=== PATIENT | male | born 1950 | race Caucasian/White ===

== ENCOUNTER 2023-07-07 13:19 | Inpatient (IN) | payer OTHER, MEDICARE, SELFPAY ==
[2023-07-07 06:43] VITALS: BP 152/58
--- NOTE | 2023-07-07 07:52 | ED.GENMED ---
History of Present Illness
General
Chief Complaint: Fall
Source: spouse
Exam Limitations: none
Time Seen by Provider: 07/07/23 07:22
Nursing documentation reviewed up to this point in time: agreed with
Travel History
Have you had any contact with someone who has COVID-19?: No
Do you have any symptoms of coronavirus? Fever > 100 degrees, chills, cough, shortness of breath, sore throat, loss of taste or smell, muscle aches, or headache?: No
History of Present Illness
History of Present Illness:
Patient is a 72-year-old male presents to the ER for evaluation after head injury. Spouse is at bedside who is primary caregiver. Patient has a history of dementia. She reports when she got up this morning she found blood in the hallway and found
patient sitting in his recliner with a laceration to his head. She believes he may have been walking in the middle the night and fell in the kitchen step. He normally sleeps downstairs in the recliner. She cares for patient at home. He is able
to walk but does not want to use a walker. She complains of worsening incontinence both bowel and bladder. Patient is not on blood thinners
Past History
Past History
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
ED Past Surgical History: Other (Craniotomy for evacuation of subdural hematoma 2010)
Social History
Tobacco: Non-smoker
Alcohol: Former
Drug: None
Personal:
Living: with family
Employment: Retired
Family History
Family History: Hypertension
Review of Systems
Review of Systems
Allergies reviewed?: Yes
Unable to obtain full review of systems at this time due to: dementia
Other source history: family
All Other Systems: ROS reviewed and negative except as documented in HPI and ROS
Constitutional: Reports no symptoms; Denies fever
Respiratory: Reports no symptoms
Cardiac: Reports no symptoms
ABD/GI: Reports no symptoms
: Reports no symptoms
Skin: Reports other (laceration to right scalp )
Neurological: Reports other (no behavior change as per spouse )
Hematologic/Lymphatic: Reports no symptoms
Psychiatric: Reports no symptoms
Phy Exam
General Physical Exam
General Presentation: no apparent distress
General Skin: warm and dry
General Habitus: elderly
General Mental: confused
General Hydration: dry mucous membranes
Cardiovascular Exam
Cardiovascular Exam: regular rate/rhythm, no murmur and normal peripheral pulses
Pulmonary Exam
Pulmonary Exam: lungs clear
Neurological Exam
Neurological Exam: alert and other (Able to state name attempts to follows commands garbled speech which is not new)
Musculoskeletal Exam
Musculoskeletal Exam: full ROM
Skin Exam
Skin Exam: normal color, warm/dry and other (Approximately 7 cm linear laceration to right lateral scalp small hematoma)
Psychiatric Exam
Psychiatric Exam: normal mood/affect
Course
Orders/Labs/Results
Orders:
Orders
07/07/23 07:24
Case Management Consult ONCE
Case Management Consult: Other
Comment: resources for advancing dementia
07/07/23 07:51
CT Head W/o Iv Contrast Urgent
Comment:
Reason For Exam: trauma
07/07/23 07:52
CT Cervical Spine W/o Iv Contr Urgent
Comment:
Reason For Exam: trauma
IV Insert/Care/Rem.- Treatment PRN
Straight cath- Treatment ONCE
07/07/23 08:36
Lidocaine 2% [Lidocaine Uro-Jet 2%] 1 syringe .ROUTE .STK-MED ONE
07/07/23 08:38
Complete Blood Count/With Diff Urgent
Comprehensive Metabolic Panel Urgent
Urinalysis Reflex To Culture Urgent
Date Specimen was Collected: 07/07/23
Time Specimen was Collected: 08:34
07/07/23 08:55
Tetanus/Diphth/Acelpertussis [Adacel] 0.5 ml IM .ONCE ONE
07/07/23 08:57
Electrocardiogram (*1) Stat
Reason for Study: Other
Other Reason for Exam: chest pain
Cardiac Monitoring- Treatment ONCE
EKG- Treatment ONCE
07/07/23 11:00
Asenapine Sublingual [Saphris] 5 mg SL NOW STA
07/07/23 11:03
Midazolam HCl [Versed] 5 mg IM NOW STA
Olanzapine [Zyprexa] 5 mg IM NOW STA
07/07/23 11:05
Asenapine Sublingual [Saphris] 5 mg .ROUTE .STK-MED ONE
Abnormal Lab Results
07/07/23
08:38
WBC 14.5 H 10^3/uL
(4.8-10.8)
RBC 4.01 L 10^6/uL
(4.70-6.10)
Hgb 11.9 L g/dL
(13.0-18.0)
Hct 36.4 L %
(39.0-52.0)
MCHC 32.7 L g/dL
(33.0-37.0)
MPV 11.5 H fL
(7.4-10.4)
Abs Immat Gran (auto) 0.1 H 10^3/uL
(0-0.05)
Absolute Neuts (auto) 11.4 H 10^3/uL
(1.4-6.5)
Absolute Monos (auto) 1.3 H 10^3/uL
(0.1-0.6)
Immature Gran % 0.6 H %
(0-0.5)
Neutrophils % 78.4 H %
(42.2-75.2)
Lymphocytes % 11.7 L %
(20.5-51.1)
BUN 24 H mg/dl
(9-20)
Glucose 109 H mg/dl
(70-99)
07/07/23 08:38
07/07/23 08:38
Vital Signs
Initial and Last Documented VS:
Initial Vital Signs
Temp Pulse Resp BP Pulse Ox
98.4 F 58 16 152/58 98
07/07/23 06:43 07/07/23 06:43 07/07/23 06:43 07/07/23 06:43 07/07/23 06:43
Last Documented Vital Signs
Temp Pulse Resp BP Pulse Ox
98.4 F 58 16 152/58 98
07/07/23 06:43 07/07/23 06:43 07/07/23 06:43 07/07/23 06:43 07/07/23 06:43
Procedures
Laceration Closure
Right Lateral Scalp:
Status of Wound: clean
Size of Wound in cm: 7
Description of Wound Edges: sharp
Preparation: cleaned with saline
Anesthesia: 1% Lidocaine with epi
Revision/Debridement: routine- no revision
Type of Closure: single layer closure
Skin Closure Material: skin didi
Additional information:
7 didi
MDM/Problems Addressed
Differential Diagnosis Includes:
Not limited to fall, head injury, intracranial hemorrhage
MDM/Problems Addressed:
Patient is a 72-year-old male with history of traumatic brain injury dementia cared for at home by . Patient was brought for evaluation of head injury. no thinners . Patient apparently had an unwitnessed fall last night found patient
sitting in recliner today with bleeding right scalp wound. Patient is a laceration to the right scalp wound. She reports patient is at baseline he has a history of dementia and getting worse. She does not have any help at home and he is getting
more more difficult to care for. He does ambulate on his own but does not want to use a walker. He is not on blood thinners. He presents alert but does not respond to questions garbled speech moans and yells. Patient has become at this time very
agitated requiring medications for agitation. does not feel that she is able to care for patient at home and does request placement. Patient does not have a fever his white count is mildly elevated likely from trauma urinalysis negative. BUN
mildly elevated. Will give fluids. Case discussed admitting hospitalist. table games manager also consulted.
Chronic conditions affecting care:
TBI now w/ dementia
*Critical Care Note
Total Time (30-74mins, 75-104mins- exclusive of procedures): Not Applicable
ED Attending Note
-
Portions of this chart may have been created with voice recognition software.� Occasional wrong word or��sound alike� substitutions may have occurred due to the inherent limitations of voice recognition software.
Discharge Plan
Departure
Patient Disposition: Admit
Date of Disposition: 07/07/23
Time of Disposition: 11:19
Admit to: Med/Surg
Admit to doctor: hospitalist
Presentation/result/management discussed w/ accepting MD/DO: Hospitalist
Patient with high blood pressure during this ER visit?: Yes
Condition: Fair
Covid-19: Not Applicable
Discharge Problem:
Head injury, Fall, Agitation, scalp laceration
Prescriptions:
No Action
multivitamin [Daily Multiple] 1 EACH tablet
1 ea PO DAILY
amlodipine 10 MG tablet
10 mg PO DAILY
levetiracetam [Keppra] 750 MG tablet
750 mg PO DAILY
metoprolol tartrate 25 MG tablet
12.5 mg PO BID
clopidogrel 75 MG tablet
75 mg PO DAILY
pantoprazole 40 MG tablet,delayed release (DR/EC)
40 mg PO DAILY
folic acid 1 MG tablet
1 mg PO DAILY
metformin 500 MG tablet extended release 24 hr
500 mg PO DAILY
amlodipine-atorvastatin 1 EACH tablet
1 ea PO DAILY
thiamine mononitrate (vit B1) 100 MG tablet
100 mg PO DAILY
prednisone 20 MG tablet
40 mg PO DAILY Qty: 8 0RF
Referrals:
Sotero Cartagena MD [Family Provider] -
Interventions
Interventions:
*Risk Screen - Suicide Last Done: 07/07/23 06:43
*General Assessment Last Done: 07/07/23 06:43
*Neglect/Abuse Screening Last Done: 07/07/23 06:43
ED- Fall Risk Assessment Last Done: 07/07/23 06:43
*ED COVID-19 Vaccine History Last Done: 07/07/23 06:43
ED-Musculoskeletal Assessment Last Done: 07/07/23 07:18
ED- Neurological Assessment Last Done: 07/07/23 07:18
ED-Skin Assessment Last Done: 07/07/23 07:18
Discharge Date and Time
Print Language: PERSIAN
[2023-07-07 08:59] LABS: % Basophils 0.2 % (0-2); % Eosinophils 0.1 % (0-6); % Immature Granulocytes 0.6 % (0-0.5); % Lymphocytes 11.7 % (20.5-51.1); % Neutrophils 78.4 % (42.2-75.2); Absolute Immature Granulocytes 0.1 10^3/uL (0-0.05); Absolute Lymphocytes 1.7 10^3/uL (1.2-3.4); Absolute Monocytes 1.3 10^3/uL (0.1-0.6); Absolute Neutrophils 11.4 10^3/uL (1.4-6.5); Hematocrit 36.4 % (39.0-52.0); Hemoglobin 11.9 g/dL (13.0-18.0); Mean Corp Hgb Conc. 32.7 g/dL (33.0-37.0); Mean Corpuscular Hgb 29.7 pg (27.0-31.0); Mean Corpuscular Volume 90.8 fL (80.0-94.0); Mean Platelet Volume 11.5 fL (7.4-10.4); Nucleated Red Blood Cells % 0 % (-); Platelet Count 204 10^3/uL (130-400); Red Blood Cell Count 4.01 10^6/uL (4.70-6.10); Red Cell Dist. Width 13.4 % (11.5-14.5); White Blood Cell Count 14.5 10^3/uL (4.8-10.8)
[2023-07-07 09:11] LABS: ALT (SGPT) 19 U/L (0-50); AST (SGOT) 27 U/L (17-59); Alkaline Phosphatase 109 U/L (38-126); Blood Urea Nitrogen 24 mg/dl (9-20); Calcium 9.4 mg/dl (8.4-10.2); Carbon Dioxide 27 mmol/L (22-30); Chloride 103 mmol/L (98-107); Glucose 109 mg/dl (70-99); Potassium 4.3 mmol/L (3.5-5.1); Sodium 137 mmol/L (135-145); Total Bilirubin 0.6 mg/dl (0.2-1.3); Total Protein 6.4 g/dl (6.3-8.2); eGFR > 60.00
[2023-07-07 09:22] LABS: Urine Albumin Trace (Neg - Trace); Urine Bilirubin Negative (Negative); Urine Character Clear (Clear); Urine Color Yellow; Urine Glucose Negative (Negative); Urine Ketone Negative (Negative); Urine Leukocyte Negative (Negative); Urine Nitrite Negative (Negative); Urine Occult Blood Negative (Negative); Urine Urobilinogen Negative (Neg - 1+)
--- NOTE | 2023-07-07 09:26 | CM ---
CM met with patient and at bedside in ED. Per , she feels overwhelmed with the patient's needs and states that she 'did not realize how bad he had gotten.' CM provided resources including [facility] information for an assessment for
in home services. confirms she will call. states she is also interested in VN services for SN/PT/OT if patient is discharged home. CM will continue to follow.
[2023-07-07] MEDS: ZYPREXA 5 MG IM (11:22)
[2023-07-07] MEDS: SAPHRIS 5 MG SL (11:24)
[2023-07-07] MEDS: ADACEL 0.5 ML IM (12:13)
[2023-07-07] MEDS: NSS 500 IV (12:14)
[2023-07-07] MEDS: VERSED 2 MG IM (12:19)
[2023-07-07] MEDS: VERSED 3 MG IM (12:19)
--- NOTE | 2023-07-07 12:20 | HPS.HSE ---
Family Physician
-
Family Physician: Sotero Cartagena
Chief Complaint
-
Fall, increased agitation
History of Present Illness
72-year-old male from home where he lives with his Frances who Reports she found blood in the hallway and found her sitting in a recliner with a laceration to his head. She believes that he got up in the middle of the night and was
attempting to go towards the kitchen. She reports over the past 2 years he has had progressive decline in his memory and has a shuffling gait but does not want to use a walker. She also reports he has chronic incontinence of bowel and bladder.
She is his only primary switchboard operator and is having difficulty managing taking care of him due to his worsening dementia. She denies recent fever, chills, chest pain, palpitations, shortness of breath, cough, abdominal pain, nausea, vomiting, diarrhea.
He has past medical history of fall with brain hemorrhage 2010 treated [facility] with craniotomy, second brain hemorrhage 2010 treated at [facility], dementia, GERD, seizures, TIA 2012, 2013, former alcoholic stopped 2010, chronic ambulatory
dysfunction, depression
Medical History
Past Medical History
Past Medical History: Reports Other
Additional Past Medical History:
fall with brain hemorrhage 2010 treated at [facility] with craniotomy
second brain hemorrhage 2010 treated at [facility]
dementia
GERD
seizures
TIA 2012, 2013
former alcoholic stopped 2010
chronic ambulatory dysfunction
depression
Past Surgical History: Reports Other
Additional Past Surgical History:
Craniotomy secondary to brain hemorrhage 2010 [facility]
Social History
Tobacco: Non-smoker
Alcohol: Former (Alcoholic former quit 2010)
Personal:
Living: With Family ( Frances)
Employment: Retired
Family History
Family History: Other (Patient mother of fall with brain hemorrhage age 54, father age 55 history of alcohol abuse, smoker)
Allergies / Home Medications
Allergies reflects when Allergies were last updated in [facility].
Home Medications with original date entered in [facility]
Allergy/Medication List:
Allergies
Allergy/AdvReac Type Severity Reaction Status Date / Time
No Known Allergies Allergy Unverified 07/07/23 06:42
Home Medications
amlodipine 10 mg tablet 10 mg PO DAILY 12/30/11
levetiracetam 750 mg tablet (Keppra) 750 mg PO DAILY 12/30/11
metoprolol tartrate 25 mg tablet 12.5 mg PO BID 12/30/11
clopidogrel 75 mg tablet 75 mg PO DAILY 07/03/14
metformin 500 mg tablet,extended release 24 hr 500 mg PO DAILY 07/03/14
pantoprazole 40 mg tablet,delayed release 40 mg PO HS 07/03/14
atorvastatin 20 mg tablet 20 mg PO HS 07/07/23
donepezil 10 mg tablet 10 mg PO HS 07/07/23
xlfzdhjeytpq-nolxmcki-fwwogw tablet 1 tab PO DAILY 07/07/23
sertraline 100 mg tablet 100 mg PO HS 07/07/23
thiamine HCl (vitamin B1) 100 mg tablet 100 mg PO DAILY 07/07/23
Review of Systems
-
History Source: Family ( Frances at bedside)
A 12 point ROS was completed and negative except as noted: Yes
Constitutional: Reports Other (Agitation); Denies Fever
EENT: Reports Other (Laceration right scalp)
Respiratory: Denies Cough or Trouble Breathing
Cardiac: Denies Chest Pain or Palpitations
Abdomen/GI: Denies Abdominal Pain, Nausea, Vomiting or Diarrhea
: Reports Incontinence (Chronic urinary and bowel)
Musculoskeletal: Denies Joint Pain or Edema
Skin: Denies Itching or Rash
Neurological: Denies Dizzy or Headache
Endocrine: Reports No Symptoms
Hematologic/Lymphatic: Reports No Symptoms
Psych: Reports Other (Agitation)
Physical Exam
Vital Signs
Vital Signs
Temp Pulse Resp BP Pulse Ox
98.4 F 58 16 152/58 98
07/07/23 06:43 07/07/23 06:43 07/07/23 06:43 07/07/23 06:43 07/07/23 06:43
Physical Exam
General: Other (Patient currently sleeping secondary to IV Versed/Zyprexa for acute agitation); No Fever or Chills
HEENT: PERRLA (With manual opening), [place] Conjunctivae and Other (Dry oral mucosa)
Respiratory: Clear; No Wheezes, Rales or Rhonchi
Cardiac: S1/S2 and Regular Rhythm; No Murmur, Rub, Gallop or Peripheral Edema
Breast: Deferred by me
GI: Soft, Non Tender, Non Distended, Normal Bowel Sounds and No Hepatosplenomegaly
Rectal: Deferred by Provider
Genito-urinary: Deferred by me
Musculoskeletal: No Clubbing, No Cyanosis and No Edema
Skin: Warm, Dry and Other (Scalp laceration repair with didi right side of head)
Neuro: Other (Patient currently sleeping secondary to IV Versed/Zyprexa for acute agitation)
Psych: Other (Patient currently sleeping secondary to IV Versed/Zyprexa for acute agitation)
Laboratory Results
-
07/07/23 08:38
07/07/23 08:38
Laboratory Results
Total Bilirubin 0.6 mg/dl (0.2-1.3) 07/07/23 08:38
AST 27 U/L (17-59) 07/07/23 08:38
ALT 19 U/L (0-50) 07/07/23 08:38
Alkaline Phosphatase 109 U/L (38-126) 07/07/23 08:38
Impression/Plan
-
Impression/plan:
Admit to MedSurg
#Acute agitation Hx dementia
#Hx with history TBI/brain injury brain hemorrhage 02-24-2011 [facility]
-Consult psychiatry
-Patient currently on Zoloft 100 mg at bedtime
-Continue donepezil
-Patient given IV Versed, Zyprexa in ER is currently calm
-Will continue IM Zyprexa 5 mg every 6 hours as needed agitation(current QTc 435 MS)
- monitor daily EKG QTc interval
-IV NSS 80 cc an hour
-When awake consult speech and swallow
-Consult PT/OT/case management for possible SNF placement
-N.p.o. while sedated consult speech therapy
#Seizure disorder status post brain injury 02/24/2011 treated at [facility], second brain hemorrhage treated at [facility] 2010
-Will make Keppra IV 750 mg daily
#Fall with laceration scalp right-sided
-Requiring didi in ER
-will need removal approximately [address] cervical spine: No acute abnormalities multilevel cervical DDD
CT head: Encephalomalacia subjacent to 6 cm right temporal parietal craniotomy, moderate diffuse cortical atrophy, small right parietal scalp hematoma
EKG: Sinus bradycardia with PACs 59 bpm, QTc 435 MS
#Acute leukocytosis likely secondary to fall
WBC 14.5 no shift, patient nontoxic, afebrile
-UA negative
Will follow CBC monitor for temperature
#TIAs 2012, 2013
-Continue Plavix 75 mg daily, statin, beta-beka
#DM2
Accu-Cheks with SSI, check HgbA1c
Continue metformin 5 mg daily
#HTN�benign
152/58
-Continue amlodipine 10 mg daily, metoprolol tartrate 12.5 mg twice daily
-If sedated and unable side will have IV as needed hydralazine SBP greater than 160
#HLD
Continue statin
# GERD
-Continue Protonix 40 mg at bedtime
#Hearing impaired bilaterally
DVT prophylaxis
SCDs
DNR per Frances at bedside
--- NOTE | 2023-07-07 13:33 | W.PN.UPDATE ---
Update Note
Progress Note Update
I saw and examined the patient.
The DIMETHYLANILINE SULFATOR OPERATOR note was reviewed and I agree with the note.
This note is an addendum to Isabell Bermeo note from earlier today. Billing purposes.
Comment:
72-year-old male past medical history of brain hemorrhage status postcraniotomy, dementia who is presenting from home with fall and laceration to the head. But spouse at bedside patient had declined significantly in the last few years. At home
patient is able to tolerate diet without any difficulty. Patient does have incontinence of the bowel and bladder. In the ER patient with severe agitation and required physical restraints. Subsequently afterward he also required chemical
restraints and was able to be weaned off physical restraints. Currently patient is resting in bed. Spouse states unable to take care of her at home.
General no acute distress, sleeping
Cardiac S1-S2 mild bradycardia heart rate 54 with
Lungs clear to auscultation.
Abdomen positive bowel sounds soft nontender nondistended
Extremities no edema
Psych sleeping currently
Acute agitation with behavioral disturbances
History of dementia
History of TBI status postcraniotomy with bleeding
Seizure disorder
Mechanical fall
Leukocytosis likely reactive
History of TIAs
Primary hypertension
Plan
Switch to IV Keppra
Zyprexa as needed
Psych evaluation
Case management for placement
Monitor blood pressure
Speech eval once awake
CODE STATUS DNR
Discussed with spouse at bedside in detail
[2023-07-07 15:20] VITALS: BP 131/64
[2023-07-07] MEDS: NSS 1000 IV (16:06)
--- NOTE | 2023-07-07 17:00 | PTCARENOTE ---
Addendum entered by Lory Lindo RN 07/07/23 18:24:
Dr Felix was contacted to clarify NPO order as it states ok for meds but no clear liquids. Since pt is inconsistently staying awake the pm meds can be held until speech evaluates him tomorrow. will pass on to the next shift.
Original Note:
Rec'd pt from ER. transferred from stretcher to bed. pt is lethargic but arousable to voice. Oriented only to person. He is slow to respond to questions. states this is normal. NSS started at 80ml/hr per orders. Bed alarm placed under patient.
emotional about how difficult it is to care for him senior group manager saw her in the ER. Emotional support provided. call tapia in reach.
[2023-07-07 18:08] LABS: Glucose - Point of Care 117 mg/dl (70-99)
[2023-07-07] MEDS: NOVOLOG FLEXPEN-LOW RESISTANCE SC (18:13)
--- NOTE | 2023-07-07 19:57 | W.PN.UPDATE ---
Update Note
Progress Note Update
ORGANIC PREPARATION TECHNICIAN was asked by RN to hold the medications till evaluated by speech for swallow eval. Per day shift RN, Attending is aware.
[2023-07-07] MEDS: KEPPRA 750 MG IV (22:49)
[2023-07-07 23:20] VITALS: BP 141/46
[2023-07-08 00:08] LABS: Glucose - Point of Care 117 mg/dl (70-99)
[2023-07-08] MEDS: NOVOLOG FLEXPEN-LOW RESISTANCE SC ×5 (00:39→23:28)
[2023-07-08] MEDS: STERILE WATER FOR INJECTION 2.10000000000000009 ML IM (02:15)
[2023-07-08] MEDS: ZYPREXA 5 MG IM ×2 (02:21→08:15)
--- NOTE | 2023-07-08 02:34 | PTCARENOTE ---
Addendum entered by Abiel Keith RN 07/08/23 05:17:
Pt with another episode of agitation. Pt pulled second IV out. Multiple attempts with different tactics to calm and reorient pt. RAILWAY EQUIPMENT OPERATOR Amrit Richter notified. Pt ordered left and right wrist restraints with 4 side rails at 0434. Pt placed in
restraints with no issue, pt tolerating restraints. IV replaced, fluids reconnected. Pt still on bed alarm. No signs of acute distress, respirations regular. Call tapia within reach.
Addendum entered by Abiel Keith RN 07/08/23 03:50:
Pt currently relaxed, pleasant and cooperative. No signs of acute distress, respirations regular. Bed alarm still on, call tapia within reach.
Original Note:
Pt became agitated overnight. Pt was taking all linens off bed, attempting to remove gown, get out of bed and successfully pulled out IV. Pt yelling, unable to be calmed. IV team called, new IV placed by IV team in left forearm. Pt given PRN Zyprexa
5 mg IM per order for agitation.
[2023-07-08] MEDS: NSS 1000 IV ×2 (05:15→17:23)
[2023-07-08 06:18] LABS: Glucose - Point of Care 118 mg/dl (70-99)
[2023-07-08 07:20] VITALS: BP 141/92
[2023-07-08 07:55] VITALS: BP 141/92
--- NOTE | 2023-07-08 08:04 | PTCARENOTE ---
Addendum entered by Lory Lindo RN 07/08/23 16:44:
Dr Felix made aware that pt has rectal temp of 101. Ordered infection workup (cxr, urine and blood cultures). will also give tylenol suppository
Addendum entered by Lory Lindo RN 07/08/23 09:34:
speech therapist attempted evaluation but pt would not cooperate. Dr Felix made aware. He will look at his medications and make adjustments
Original Note:
Rec'd pt agitated, pulling off brief. multiple attempts to place it back on. Dr Felix aware and added bilateral hand mitts to is restraint order. Multiple attempts made to reorient him without success. Pt's called in for updated. Updated her
on events overnight. She will be in later this morning.
[2023-07-08 09:01] LABS: % Basophils 0.3 % (0-2); % Eosinophils 0.2 % (0-6); % Immature Granulocytes 0.4 % (0-0.5); % Lymphocytes 17.2 % (20.5-51.1); % Monocytes 9.9 % (1.7-9.3); Absolute Immature Granulocytes 0.1 10^3/uL (0-0.05); Absolute Lymphocytes 2.1 10^3/uL (1.2-3.4); Absolute Monocytes 1.2 10^3/uL (0.1-0.6); Absolute Neutrophils 8.7 10^3/uL (1.4-6.5); Hemoglobin 13.8 g/dL (13.0-18.0); Mean Corp Hgb Conc. 33.7 g/dL (33.0-37.0); Mean Corpuscular Hgb 29.7 pg (27.0-31.0); Mean Corpuscular Volume 88.4 fL (80.0-94.0); Mean Platelet Volume 11.4 fL (7.4-10.4); Nucleated Red Blood Cells % 0 % (-); Platelet Count 234 10^3/uL (130-400); Red Blood Cell Count 4.64 10^6/uL (4.70-6.10); Red Cell Dist. Width 13.5 % (11.5-14.5); White Blood Cell Count 12.1 10^3/uL (4.8-10.8)
[2023-07-08 09:27] LABS: Blood Urea Nitrogen 14 mg/dl (9-20); Calcium 9.7 mg/dl (8.4-10.2); Carbon Dioxide 27 mmol/L (22-30); Chloride 105 mmol/L (98-107); Glucose 98 mg/dl (70-99); HDL Cholesterol 62 mg/dl; LDL Cholesterol, Calculated 50 mg/dl; Sodium 144 mmol/L (135-145); Total Cholesterol 127 mg/dl (50-199); Triglyceride 79 mg/dl (10-149); Very Low Density Lipoprotein 15 mg/dl (0-30); eGFR > 60.00
[2023-07-08] MEDS: KEPPRA 750 MG IV ×2 (09:37→20:07)
[2023-07-08] MEDS: PROTONIX IV 40 MG IV (09:37)
[2023-07-08] MEDS: NORVASC PO (09:37)
[2023-07-08] MEDS: NSS (PRESERVATIVE FREE) 10 ML IV (09:37)
[2023-07-08] MEDS: PLAVIX PO (09:38)
--- NOTE | 2023-07-08 09:48 | CS.PSYCHR ---
Consult Summary - Psychiatry
-
Psychiatry consult for management of agitation in context of dementia. 72 yo male with history of dementia admitted 07/07/2023 s/p fall at home. In the ER he was severely agitated and required Saphris 5mg SL, Zyprexa 5mg IM and Versed 5mg IM for
safety and stabilization. Spoke with nursing who state patient was quite agitated again overnight and this morning. He received zyprexa 5mg IM overnight and then again this morning. Per nursing patient has tolerated this dose well and it has helped
calm him down and maintain his safety. He has not been oversedated/somnolent as a result of it. Qtc today is 431. Per , patient's dementia has been worsening over the past two years and significantly worse over the past two months. She reports
memory decline, shuffled gait and urinary/fecal incontinence. She states she is unable to care for him.
PO medications are being held until speech/swallow eval is completed. Attempt was made today but patient was aggressive, kicking and yelling profanity.
CT head- encephalomalacia subjacent to 6cm R temporal parietal craniotomy; moderate cortical atrophy, small right parietal hematoma
At this time, he is lying in bed, awake and restless. He answers 'I don't know' when asked his first and last name, where he is, and what year it is.
Past psych- prescribed zoloft 100mg HS
Social- lives with who has been taking care of him; retired
D&A- history of alcohol use disorder, stopped drinking in 2010
Family history- father was an alcoholic
PMH- dementia, brain hemorrhage 2010 craniotomy, seizures, TIA 2012 2013, chronic ambulatory dysfunction, bowel and bladder incontinence, GERD
A/P- 72 yo male with worsening dementia with agitation. Unfortunately so far, patient has required high doses of medication to manage agitation and keep him safe. Change in environment is likely contributing to worsening confusion and behaviors.
Redirection and nonpharmacological interventions are preferred as much as able but will also continue Zyprexa 5mg IM PRN (will make q8 hours rather than q6) for now to ensure his safety and that of staff and nursing. Recommend lowering dose to 2.5mg
IM PRN q8 hours as soon as he is more calm and redirectable. Will consider standing doses if needed, Check EKGs daily to monitor Qtc. Psychiatry will follow.
--- NOTE | 2023-07-08 11:01 | W.PN.HOSP.TC ---
Today's Communication/Plan
-
Psych recs
daily speech eval
restart po meds once safe
IVF interim
IV bp meds
difficult situation
Assessment / Plan
Assessment / Plan
#Acute agitation Hx dementia
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
-Consult psychiatry
-Patient currently on Zoloft 100 mg at bedtime
-Continue donepezil once taking po
-Patient given IV Versed, Zyprexa in ER
-Will continue IM Zyprexa 5 mg every 6 hours as needed agitation(current QTc 435 MS)
-IV NSS 80 cc an hour
-When awake consult speech and swallow-npo for now due to severe agitation/risk of aspiration
-Consult PT/OT/case management for possible SNF placement
#Seizure disorder status post brain injury 02/24/2011 treated at [place], second brain hemorrhage treated at [place] 2010
-Will make Keppra IV 750 mg daily
#Fall with laceration scalp right-sided
-Requiring didi in ER
-will need removal approximately [address] cervical spine: No acute abnormalities multilevel cervical DDD
CT head: Encephalomalacia subjacent to 6 cm right temporal parietal craniotomy, moderate diffuse cortical atrophy, small right parietal scalp hematoma
EKG: Sinus bradycardia with PACs 59 bpm, QTc 435 MS
#Acute leukocytosis likely secondary to fall
WBC 14.5 no shift, patient nontoxic, afebrile
-UA negative
Will follow CBC monitor for temperature
#TIAs 2012, 2013
-Continue Plavix 75 mg daily, statin, [id number] can take po
#DM2
Accu-Cheks with SSI, check HgbA1c
#HTN�benign
152/58
-Continue amlodipine 10 mg daily, metoprolol tartrate 12.5 mg twice daily
-If sedated and unable side will have IV as needed hydralazine SBP greater than 160
#HLD
Continue statin
# GERD
-Continue Protonix 40 mg at bedtime
#Hearing impaired bilaterally
DVT prophylaxis
SCDs
DNR per Frances at bedside
Anticipated Discharge: > 48 hours
Subjective/Interval History
-
Date of Service: July 08, 2023
remains in restraints
agitated
verbally abusive
refused PE
Objective Data
-
Labs:
Laboratory Results
07/08/23
08:15
WBC 12.1 H
Hgb 13.8
Hct 41.0
Plt Count 234
Sodium 144
Potassium 4.0
Chloride 105
Carbon Dioxide 27
BUN 14
Creatinine 0.7
Glucose 98
Calcium 9.7
Vital Signs:
Vital Signs
Temp Pulse Resp BP Pulse Ox
98.4 F 123 20 141/92 97
07/07/23 23:20 07/08/23 07:55 07/08/23 07:55 07/08/23 07:55 07/07/23 23:20
Physical Exam
-
General: Appears Chronically Ill and Other (in restraints. aggressive. )
GI: Nondistended
Genito-urinary: Negative Sandoval
Psych: Agitated
[2023-07-08 12:32] LABS: Glucose - Point of Care 93 mg/dl (70-99)
--- NOTE | 2023-07-08 15:31 | CM ---
Patient with Hx dementia with Dx Acute agitation, seizure DO, Fall with laceration scalp, Acute leukocytosis. Room air. Seen by Psych. Receiving Zyprexa prn. Per nursing; confused, restless, restraints, mitts. PT & OT on hold.
Met with patient and Frances; patient confused and unable to participate, says patient does not seem to know she is here.
CM had extensive conversation with .
The patient resides with his in a one story house with 1 + 1 ZIGGY.
He has been confused for the past 6 months, with progressive worsening of confusion and has become more difficult to manage at home.
The patient is assisted with ADLs by his . He washes up at the bathroom sink, and refuses to shower as he doesn't like getting his hair wet.
He wears depends and leaves soiled ones in the shower.
The patient is ambulatory without using an assistive device.
The works 4 hrs/day and patient has been left alone during that time.
DME - [facility]
Prior remote VN - cannot remember agency
SNF - possibly [facility] - [facility]
PCP - Sot[facility]
Pharmacy- [facility]
states she can no longer manage patient at home. She says she has not been sleeping more than 4 hrs/night and wakes up at night having 'panic attacks', worrying about many things including caring for her , and her finances. She
appeared exhausted, stressed, overwhelmed and was tearful, stating that she called her only son and he was unsympathetic and unsupportive, and stated he did not want to be involved.
Discussed possible SNF for rehab if patient is able to participate, followed by LTC. expressed concerns that she cannot afford to pay privately for SNF. Discussed possibility of SNF under Medicaid if patient qualifies. Jillian is interested in
a referral to [facility]. Gave her SNF list and provided [facility] rating. Advised her to call and speak with Elvira in Admissions.
Case discussed with Dr Felix.
Plan referral to [facility] once behavior improves.
[2023-07-08 16:21] VITALS: BP 124/44
[2023-07-08] MEDS: TYLENOL/FEVERALL 650 MG RECTAL (17:23)
[2023-07-08 17:28] LABS: Urine Albumin Trace (Neg - Trace); Urine Bilirubin Negative (Negative); Urine Character Slightly Cloudy (Clear); Urine Color Yellow; Urine Glucose Negative (Negative); Urine Ketone 2+ (Negative); Urine Leukocyte 2+ (Negative); Urine Nitrite Negative (Negative); Urine Occult Blood Trace (Negative); Urine Urobilinogen Negative (Neg - 1+)
[2023-07-08 17:30] LABS: Glucose - Point of Care 87 mg/dl (70-99)
[2023-07-08 17:45] LABS: Urine Bacteria Moderate (Negative); Urine Red Blood Cell 0-2 /HPF (0-2)
[2023-07-08 23:00] VITALS: BP 139/51
--- NOTE | 2023-07-08 23:00 | PTCARENOTE ---
Assume car from AM RN. AAOx1. pt has been mostly drowsy and lethargic. Stimulant to touch and verbal. Pt has a garble speech and fights when changing him. pt remains in restraints fro safety. Will continue w/ tx plan.
[2023-07-08 23:28] LABS: Glucose - Point of Care 74 mg/dl (70-99)
[2023-07-09 05:32] LABS: Glucose - Point of Care 78 mg/dl (70-99)
[2023-07-09] MEDS: NSS 1000 IV ×2 (05:33→21:00)
[2023-07-09] MEDS: NOVOLOG FLEXPEN-LOW RESISTANCE SC ×2 (05:33→12:15)
[2023-07-09 07:30] VITALS: BP 150/52
[2023-07-09 07:56] LABS: % Basophils 0.4 % (0-2); % Eosinophils 0.2 % (0-6); % Immature Granulocytes 0.4 % (0-0.5); % Lymphocytes 12.7 % (20.5-51.1); % Monocytes 6.9 % (1.7-9.3); % Neutrophils 79.4 % (42.2-75.2); Absolute Basophils 0.1 10^3/uL (0-0.2); Absolute Immature Granulocytes 0.1 10^3/uL (0-0.05); Absolute Lymphocytes 1.7 10^3/uL (1.2-3.4); Absolute Monocytes 0.9 10^3/uL (0.1-0.6); Absolute Neutrophils 10.7 10^3/uL (1.4-6.5); Hematocrit 40.5 % (39.0-52.0); Hemoglobin 13.3 g/dL (13.0-18.0); Mean Corp Hgb Conc. 32.8 g/dL (33.0-37.0); Mean Corpuscular Hgb 29.9 pg (27.0-31.0); Mean Platelet Volume 11.1 fL (7.4-10.4); Nucleated Red Blood Cells % 0 % (-); Platelet Count 212 10^3/uL (130-400); Red Blood Cell Count 4.45 10^6/uL (4.70-6.10); Red Cell Dist. Width 13.6 % (11.5-14.5); White Blood Cell Count 13.5 10^3/uL (4.8-10.8)
[2023-07-09 08:23] LABS: Carbon Dioxide 24 mmol/L (22-30); Chloride 108 mmol/L (98-107); Potassium 4.2 mmol/L (3.5-5.1); Sodium 143 mmol/L (135-145); eGFR > 60.00
[2023-07-09 08:33] LABS: Blood Urea Nitrogen 22 mg/dl (9-20); Calcium 8.8 mg/dl (8.4-10.2); Glucose 85 mg/dl (70-99)
[2023-07-09] MEDS: PLAVIX PO (08:59)
[2023-07-09] MEDS: NORVASC PO (08:59)
[2023-07-09] MEDS: NSS (PRESERVATIVE FREE) 10 ML IV (09:49)
[2023-07-09] MEDS: PROTONIX IV 40 MG IV (09:49)
[2023-07-09] MEDS: KEPPRA 750 MG IV ×2 (09:49→20:55)
[2023-07-09] MEDS: NORVASC 10 MG PO (10:00)
[2023-07-09] MEDS: PLAVIX 75 MG PO (10:00)
--- NOTE | 2023-07-09 11:27 | PTOTSP ---
SPEECH THERAPY SWALLOW EVALUATION:
Clinical signs of oropharyngeal dysphagia, likely chronic related to history of TBI/dementia and acutely exacerbated by recent fall and acute agitation. Patient is at risk for aspiration given significant confusion/impulsivity. Recommend cautious
oral diet of IDDSI Level 4 Puree and thin liquids. Medications crushed in puree. Strict aspiration precautions includin:1 assist and to ensure use of strategies; only feed when awake/alert; small sips/bites; slow rate of intake; HOB 90 degrees;
D/c oral diet if pt exhibits signs of aspiration or a decline in mental or respiratory status; Oral care 3x/day to reduce risk for nosocomial infection. Speech therapy to follow closely, monitor CXR and labs, assess diet tolerance and modify as
appropriate, provide continued education regarding aspiration risks/precautions, and provide continued swallow therapy as appropriate.
RECOMMEND:
1) cautious oral diet of IDDSI Level 4 Puree and thin liquids
2) Medications crushed in puree
3) Strict aspiration precautions includin:1 assist and to ensure use of strategies; only feed when awake/alert; small sips/bites; slow rate of intake; HOB 90 degrees; D/c oral diet if pt exhibits signs of aspiration or a decline in mental or
respiratory status; Oral care 3x/day to reduce risk for nosocomial infection
4) Speech therapy to follow closely, monitor CXR and labs, assess diet tolerance and modify as appropriate, provide continued education regarding aspiration risks/precautions, and provide continued swallow therapy as appropriate
[2023-07-09 11:49] LABS: Glucose - Point of Care 95 mg/dl (70-99)
--- NOTE | 2023-07-09 11:59 | W.PN.HOSP.TC ---
Today's Communication/Plan
-
diet ordered
F/U further psychiatry recs
stop fluids if taking PO intake
Assessment / Plan
Assessment / Plan
#Acute agitation Hx dementia
#Hx with history TBI/brain injury brain hemorrhage 02-24-2011 [facility]
-appreciate psychiatry consult
-Patient currently on Zoloft 100 mg at bedtime
-Continue donepezil once taking po
-Will continue IM Zyprexa PRN
-continue fluids until sure he's taking PO
-appreciate ST Eval - diet advanced
-Consult PT/OT/case management for possible SNF placement
#Seizure disorder status post brain injury 02/24/2011 treated at [place], second brain hemorrhage treated at [place] 2010
-Will make Keppra IV 750 mg daily
#Fall with laceration scalp right-sided
-Requiring didi in ER
-will need removal approximately [address] cervical spine: No acute abnormalities multilevel cervical DDD
CT head: Encephalomalacia subjacent to 6 cm right temporal parietal craniotomy, moderate diffuse cortical atrophy, small right parietal scalp hematoma
EKG: Sinus bradycardia with PACs 59 bpm, QTc 435 MS
#Acute leukocytosis likely secondary to fall
WBC 14.5 no shift, patient nontoxic, afebrile
-UA negative
Will follow CBC monitor for temperature
#TIAs 2012, 2013
-Continue Plavix 75 mg daily, statin, beta-beka - resumed now that he can take PO
#DM2
Accu-Cheks with SSI, check HgbA1c
#HTN�benign
152/58
-Continue amlodipine 10 mg daily, metoprolol tartrate 12.5 mg twice daily
-If sedated and unable side will have IV as needed hydralazine SBP greater than 160
#HLD
Continue statin
# GERD
-Continue Protonix 40 mg at bedtime
#Hearing impaired bilaterally
DVT prophylaxis
SCDs
DNR per Frances at bedside
Anticipated Discharge: 24 - 48 hours
Subjective/Interval History
-
Date of Service: July 09, 2023
patient states he is hungry
difficult to assess further 2/2 dementia
Objective Data
-
Labs:
Laboratory Results
07/09/23
07:37
WBC 13.5 H
Hgb 13.3
Hct 40.5
Plt Count 212
Sodium 143
Potassium 4.2
Chloride 108 H
Carbon Dioxide 24
BUN 22 H
Creatinine 0.8
Glucose 85
Calcium 8.8
Vital Signs:
Vital Signs
Temp Pulse Resp BP Pulse Ox
98.5 F 59 17 150/52 100
07/09/23 07:30 07/09/23 07:30 07/09/23 07:30 07/09/23 07:30 07/09/23 07:30
I&O
07/08/23 07/09/23 07/10/23
06:59 06:59 06:59
Intake Total 960 / 960
Balance 960 / 960
Review of Systems
-
Unable to obtain full review of systems at this time due to: Dementia
History Source: Patient
Physical Exam
-
General: Appears Chronically Ill
HEENT: PERRLA
Respiratory: Clear to Auscultation
Cardiac: Regular Rhythm and S1/S2
GI: Nondistended
Genito-urinary: Negative Sandoval
Neuro: Awake and Alert
Psych: Apparent Dementia
Data Reviewed
-
Diagnostic Radiology: Report Reviewed by me
Labs: Labs Reviewed by me
[2023-07-09 15:30] VITALS: BP 148/60
[2023-07-09 17:53] LABS: Glucose - Point of Care 185 mg/dl (70-99)
[2023-07-09] MEDS: NOVOLOG FLEXPEN-LOW RESISTANCE 300 UNITS SC (19:27)
[2023-07-09] MEDS: LOPRESSOR 12.5 MG PO (20:53)
[2023-07-09] MEDS: ARICEPT 10 MG PO (21:00)
[2023-07-09] MEDS: ZOLOFT 100 MG PO (21:00)
[2023-07-09] MEDS: LIPITOR 20 MG PO (21:00)
[2023-07-09 21:21] LABS: Glucose - Point of Care 178 mg/dl (70-99)
[2023-07-09] MEDS: ZYPREXA 5 MG IM (22:33)
--- NOTE | 2023-07-09 22:40 | PTCARENOTE ---
Patient with uliple attempts to it staff. Very agitated and attes of getting out of bed. PRN Zyprexa give per orders
[2023-07-09 23:00] VITALS: BP 132/70
[2023-07-10 07:30] VITALS: BP 96/64
[2023-07-10 08:11] LABS: Glucose - Point of Care 120 mg/dl (70-99)
[2023-07-10 09:14] LABS: % Basophils 0.3 % (0-2); % Eosinophils 0.3 % (0-6); % Immature Granulocytes 0.4 % (0-0.5); % Lymphocytes 9.1 % (20.5-51.1); % Monocytes 7.7 % (1.7-9.3); % Neutrophils 82.2 % (42.2-75.2); Absolute Basophils 0.1 10^3/uL (0-0.2); Absolute Immature Granulocytes 0.1 10^3/uL (0-0.05); Absolute Lymphocytes 1.5 10^3/uL (1.2-3.4); Absolute Monocytes 1.2 10^3/uL (0.1-0.6); Absolute Neutrophils 13.1 10^3/uL (1.4-6.5); Hematocrit 38.5 % (39.0-52.0); Hemoglobin 13.2 g/dL (13.0-18.0); Mean Corp Hgb Conc. 34.3 g/dL (33.0-37.0); Mean Corpuscular Hgb 30.8 pg (27.0-31.0); Mean Platelet Volume 11.6 fL (7.4-10.4); Nucleated Red Blood Cells % 0 % (-); Platelet Count 215 10^3/uL (130-400); Red Blood Cell Count 4.28 10^6/uL (4.70-6.10); Red Cell Dist. Width 13.6 % (11.5-14.5)
[2023-07-10] MEDS: NOVOLOG FLEXPEN-LOW RESISTANCE SC (09:19)
[2023-07-10 09:37] LABS: Blood Urea Nitrogen 20 mg/dl (9-20); Calcium 8.5 mg/dl (8.4-10.2); Carbon Dioxide 24 mmol/L (22-30); Chloride 110 mmol/L (98-107); Estimated Creatinine Clearance 112 ml/min; Glucose 125 mg/dl (70-99); Potassium 3.7 mmol/L (3.5-5.1); Sodium 139 mmol/L (135-145); eGFR > 60.00
[2023-07-10] MEDS: KEPPRA 750 MG IV (09:37)
[2023-07-10] MEDS: VITAMIN B1 100 MG PO (09:37)
[2023-07-10] MEDS: PLAVIX 75 MG PO (09:37)
[2023-07-10] MEDS: PROTONIX IV 40 MG IV (09:38)
[2023-07-10] MEDS: NSS (PRESERVATIVE FREE) 10 ML IV (09:38)
[2023-07-10] MEDS: NSS 1000 IV (09:38)
[2023-07-10] MEDS: LOPRESSOR 12.5 MG PO ×2 (10:13→21:44)
[2023-07-10] MEDS: NORVASC 10 MG PO (10:13)
--- NOTE | 2023-07-10 11:02 | W.PN.UPDATE ---
Update Note
Progress Note Update
Patient seen at bedside with RN, chart reviewed. Mr. Weston is calm in bed currently but does not engage in conversation with me. He reportedly continues to have intermittent episodes of agitation but appears to be improving some. He did require
one dose late last night of IM zyprexa when he became aggressive. He is now taking PO medications. He does reportedly shout out curses but for now apparent reason.
Impression/Plan - worsening dementia with agitation - Could consider switching IM Zyprexa for a PO PRN, could stay with low dose PO Zyprexa with good response noted or switch to a low dose of Risperdal as needed. Continue with efforts of
redirection and nonpharmacological interventions to ensure safety. Would not initiate standing dose of antipsychotics unless behaviors persisted. Psychiatry will follow.
[2023-07-10 11:31] LABS: Glucose - Point of Care 243 mg/dl (70-99)
--- NOTE | 2023-07-10 11:42 | W.PN.HOSP.TC ---
Today's Communication/Plan
-
antipsychotic regimen per psych
start IV Ceftriaxone for UTI
PT/OT/ST
Assessment / Plan
Assessment / Plan
#Acute agitation Hx dementia
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
-appreciate psychiatry consult
-Patient currently on Zoloft 100 mg at bedtime
-Continue donepezil once taking po
-Will continue IM Zyprexa PRN
-stop IVF
-appreciate ST Eval - diet advanced
-Consult PT/OT/case management for possible SNF placement
#Seizure disorder status post brain injury 02/24/2011 treated at [place], second brain hemorrhage treated at [place] 2010
-change keppra to PO
#Fall with laceration scalp right-sided
-Requiring didi in ER
-will need removal approximately [address] cervical spine: No acute abnormalities multilevel cervical DDD
CT head: Encephalomalacia subjacent to 6 cm right temporal parietal craniotomy, moderate diffuse cortical atrophy, small right parietal scalp hematoma
EKG: Sinus bradycardia with PACs 59 bpm, QTc 435 MS
#Acute leukocytosis - worsening today
UTI
-UA with + leuk esterase and growth gram neg rods; will start IV Ceftriaxone
-F/U final culture
#TIAs 2012, 2013
-Continue Plavix 75 mg daily, statin, beta-beka - resumed now that he can take PO
#DM2
Accu-Cheks with SSI, check HgbA1c
#HTN�benign
152/58
-Continue amlodipine 10 mg daily, metoprolol tartrate 12.5 mg twice daily
-If sedated and unable side will have IV as needed hydralazine SBP greater than 160
#HLD
Continue statin
# GERD
-Continue Protonix 40 mg at bedtime
#Hearing impaired bilaterally
DVT prophylaxis
SCDs
DNR per Frances at bedside
Anticipated Discharge: 24 - 48 hours
Subjective/Interval History
-
Date of Service: July 10, 2023
unable to understand patient
he ate all of his breakfast
Objective Data
-
Labs:
Laboratory Results
07/10/23
08:07
WBC 16.0 H
Hgb 13.2
Hct 38.5 L
Plt Count 215
Sodium 139
Potassium 3.7
Chloride 110 H
Carbon Dioxide 24
BUN 20
Creatinine 0.6 L
Glucose 125 H
Calcium 8.5
Vital Signs:
Vital Signs
Temp Pulse Resp BP Pulse Ox
100.3 F 72 17 148/59 93
07/10/23 07:30 07/10/23 10:13 07/10/23 07:30 07/10/23 10:13 07/10/23 07:30
I&O
07/09/23 07/10/23 07/11/23
06:59 06:59 06:59
Intake Total 960 / 960 960 / 960
Balance 960 / 960 960 / 960
Review of Systems
-
History Source: Patient
All other systems: Reviewed and negative
Physical Exam
-
General: Appears Chronically Ill
HEENT: PERRLA
Respiratory: Clear to Auscultation
Cardiac: Regular Rhythm and S1/S2
GI: Nondistended
Genito-urinary: Negative Sandoval
Neuro: Awake and Alert
Psych: Apparent Dementia
Data Reviewed
-
Diagnostic Radiology: Report Reviewed by me
Labs: Labs Reviewed by me
[2023-07-10] MEDS: NOVOLOG FLEXPEN-LOW RESISTANCE 2 UNITS SC (12:38)
[2023-07-10] MEDS: STERILE WATER FOR INJECTION 10 ML IV (13:32)
[2023-07-10] MEDS: ROCEPHIN 1000 MG IV (13:33)
[2023-07-10 15:00] VITALS: BP 146/54
--- NOTE | 2023-07-10 15:36 | CM ---
Met with patient and spouse bedside.
Patient with eyes closed and when spoken to using profanity.
very upset, would like patient to go to skilled rehab, possible LTC vs home after skilled.
Patient seen by PT no ambulation.
Referrals sent to [facility], [facility], [facility] and [facility] per spouse request.
Spouse also interested in possible Memory care for him and Assisted living for herself.
Per spouse no funds to pay for all this and unsure how she will pay for her home without his income (SS).
Spouse works part-time.
Emotional support provided, spouse aware of CM availability.
Continue medication adjustments, psychiatry following.
Plan: skilled rehab once bed available and insurance auth obtained.
[2023-07-10 17:26] LABS: Glucose - Point of Care 167 mg/dl (70-99)
[2023-07-10] MEDS: NOVOLOG FLEXPEN-LOW RESISTANCE 1 UNITS SC (17:29)
[2023-07-10] MEDS: TYLENOL 650 MG PO (19:49)
[2023-07-10 21:40] VITALS: BP 133/54
[2023-07-10] MEDS: LIPITOR 20 MG PO (21:44)
[2023-07-10] MEDS: ARICEPT 10 MG PO (21:44)
[2023-07-10] MEDS: ZOLOFT 100 MG PO (21:44)
[2023-07-10 22:02] LABS: COVID-19 Antigen Negative (Negative)
[2023-07-10 22:26] LABS: Glucose - Point of Care 134 mg/dl (70-99)
[2023-07-10 22:30] VITALS: BP 139/53
[2023-07-11 00:08] VITALS: BP 139/53
--- NOTE | 2023-07-11 05:24 | DOWNTIME ---
There was a [facility] Client [employer] Downtime on 07/11/2023 from 0100 to 07/11/2023 at 0439. Downtime documentation of patient's care, including medication administrations, has been reconciled in the electronic record per guidelines. Refer to the
patient's paper chart under the miscellaneous tab to see printed paper medication records and downtime forms.
[2023-07-11 07:30] VITALS: BP 153/60
[2023-07-11 08:35] LABS: Glucose - Point of Care 138 mg/dl (70-99)
[2023-07-11] MEDS: NOVOLOG FLEXPEN-LOW RESISTANCE SC (08:37)
[2023-07-11] MEDS: LOPRESSOR 12.5 MG PO (08:38)
[2023-07-11] MEDS: VITAMIN B1 100 MG PO (08:38)
[2023-07-11] MEDS: TYLENOL 650 MG PO (08:38)
[2023-07-11] MEDS: PLAVIX 75 MG PO (08:38)
[2023-07-11] MEDS: NORVASC 10 MG PO (08:39)
[2023-07-11] MEDS: KEPPRA 750 MG PO (08:39)
[2023-07-11 08:58] LABS: % Basophils 0.2 % (0-2); % Eosinophils 0.2 % (0-6); % Immature Granulocytes 0.5 % (0-0.5); % Lymphocytes 10.2 % (20.5-51.1); % Monocytes 7.3 % (1.7-9.3); % Neutrophils 81.6 % (42.2-75.2); Absolute Immature Granulocytes 0.1 10^3/uL (0-0.05); Absolute Lymphocytes 1.8 10^3/uL (1.2-3.4); Absolute Monocytes 1.3 10^3/uL (0.1-0.6); Absolute Neutrophils 14.7 10^3/uL (1.4-6.5); Hematocrit 38.6 % (39.0-52.0); Hemoglobin 13.1 g/dL (13.0-18.0); Mean Corp Hgb Conc. 33.9 g/dL (33.0-37.0); Mean Corpuscular Hgb 30.3 pg (27.0-31.0); Mean Corpuscular Volume 89.1 fL (80.0-94.0); Mean Platelet Volume 11.4 fL (7.4-10.4); Nucleated Red Blood Cells % 0 % (-); Platelet Count 195 10^3/uL (130-400); Red Blood Cell Count 4.33 10^6/uL (4.70-6.10); Red Cell Dist. Width 13.4 % (11.5-14.5)
[2023-07-11 09:27] LABS: Blood Urea Nitrogen 25 mg/dl (9-20); Calcium 8.6 mg/dl (8.4-10.2); Carbon Dioxide 27 mmol/L (22-30); Chloride 107 mmol/L (98-107); Estimated Creatinine Clearance 96 ml/min; Glucose 125 mg/dl (70-99); Potassium 4.1 mmol/L (3.5-5.1); Sodium 136 mmol/L (135-145); eGFR > 60.00
--- NOTE | 2023-07-11 10:27 | W.PN.HOSP.TC ---
Today's Communication/Plan
-
IV Ceftriaxone
monitor WBC and fever curve
PT/OT
appreciate psychiatry
Assessment / Plan
Assessment / Plan
#Acute agitation Hx dementia
#Hx with history TBI/brain injury brain hemorrhage 02-24-2011 [facility]
-appreciate psychiatry consult
-Patient currently on Zoloft 100 mg at bedtime
-Continue donepezil once taking po
-Will continue IM Zyprexa PRN
-appreciate ST Eval - diet advanced
-Consult PT/OT/case management for possible SNF placement
#Seizure disorder status post brain injury 02/24/2011 treated at [place], second brain hemorrhage treated at [place] 2010
-change keppra to PO
#Fall with laceration scalp right-sided
-Requiring didi in ER
-will need removal approximately 7 to 10 days (07/13-07/16)
CT cervical spine: No acute abnormalities multilevel cervical DDD
CT head: Encephalomalacia subjacent to 6 cm right temporal parietal craniotomy, moderate diffuse cortical atrophy, small right parietal scalp hematoma
EKG: Sinus bradycardia with PACs 59 bpm, QTc 435 MS
Fevers
#Acute leukocytosis - worsening today
UTI
-further work-up neg (CXR, covid, flu, blood cultures)
-continue IV Ceftriaxone
-monitor WBC and fever curve
-consider CT tomorrow if still spiking fevers
#TIAs 2012, 2013
-Continue Plavix 75 mg daily, statin, beta-beka - resumed now that he can take PO
#DM2
Accu-Cheks with SSI, check HgbA1c
#HTN�benign
152/58
-Continue amlodipine 10 mg daily, metoprolol tartrate 12.5 mg twice daily
-If sedated and unable side will have IV as needed hydralazine SBP greater than 160
#HLD
Continue statin
# GERD
-Continue Protonix 40 mg at bedtime
#Hearing impaired bilaterally
DVT prophylaxis
SCDs
DNR per Frances at bedside
Anticipated Discharge: 24 - 48 hours
Subjective/Interval History
-
Date of Service: July 11, 2023
denies pain
Objective Data
-
Labs:
Laboratory Results
07/11/23
08:34
WBC 18.0 H
Hgb 13.1
Hct 38.6 L
Plt Count 195
Sodium 136
Potassium 4.1
Chloride 107
Carbon Dioxide 27
BUN 25 H
Creatinine 0.7
Glucose 125 H
Calcium 8.6
Vital Signs:
Vital Signs
Temp Pulse Resp BP Pulse Ox
101.6 F H 64 18 153/60 92
07/11/23 07:30 07/11/23 08:38 07/11/23 07:30 07/11/23 08:38 07/11/23 07:30
I&O
07/10/23 07/11/23 07/12/23
06:59 06:59 06:59
Intake Total 960 / 960 870 / 870
Balance 960 / 960 870 / 870
Review of Systems
-
Unable to obtain full review of systems at this time due to: Dementia
History Source: Patient
Physical Exam
-
General: Appears Chronically Ill
HEENT: PERRLA
Respiratory: Clear to Auscultation
Cardiac: Regular Rhythm and S1/S2
GI: Nondistended
Genito-urinary: Negative Sandoval
Neuro: Awake and Alert
Psych: Apparent Dementia
Data Reviewed
-
Diagnostic Radiology: Report Reviewed by me
Labs: Labs Reviewed by me
[2023-07-11] MEDS: ROCEPHIN 1000 MG IV (11:33)
[2023-07-11] MEDS: STERILE WATER FOR INJECTION 10 ML IV (11:33)
[2023-07-11 11:38] LABS: Glucose - Point of Care 193 mg/dl (70-99)
--- NOTE | 2023-07-11 12:18 | W.PN.UPDATE ---
Addendum entered and electronically signed by Leonard Beyer MD 07/11/23 12:26:
noted patient also taking zoloft 100 mg. antidepressants can sometimes contribute to agitation but on the other hand sometimes ssri's are used for agitation in tbi patients. since he is at this moment calm made no changes in this
Original Note:
Update Note
Progress Note Update
patient seen chart reviewed. discussed w nursing and with case mgt. the patient is a 72 year old male who was hospitalized after a fall. he has hx tbi and brain hemorrhage. he is known to be cognitively impaired and has been prescribed aricept. he
has had issues w agitation and irritability here and im zyprexa prn had been ordered. he has been better in the last 48 hours or so. when i saw him he was resting comfortably in bed. he was awake and alert. i could not really understand his speech
but he did 'answer' every question i asked him although although i was not always certain whether the answer was appropriate although he remained pleasant and calm. will change zyprexa to prn 2.5 mg po instead of im. tells me they have several
residential facilities who are reviewing him. as of this point he is cooperative and in no acute distress.
--- NOTE | 2023-07-11 12:22 | PN.CDI ---
CDI
- -
CDI:
Physician Documentation Request
Admit Date: 07/07/23 13:19
Dear Doctor Jewel,
Patient progress note states 'Acute agitation Hx dementia. Hx with history TBI/brain injury brain hemorrhage 02-24-2011 [facility]. Continue donepezil once taking po'
Could you please specify the likely type of dementia:
Alzheimer's
Senile
Vascular
Lewy body
Other
Use of terms such as suspected, likely, concern for, or probable (associated with a specific diagnosis that is being evaluated, monitored, or treated as if it exists) are acceptable and can be coded in the inpatient setting, when documented at the
time of discharge.
Thank you,
Pura Schultz RN, BSN
CDI Specialist
tiger text
Please use your independent medical judgment in providing your response.
--- NOTE | 2023-07-11 12:27 | PN.CDI ---
CDI
- -
CDI:
Physician Documentation Request
Admit Date: 07/07/23 13:19
Dear Doctor Jewel,
Patient's H&P states Acute leukocytosis likely secondary to fall. WBC 14.5 no shift, patient nontoxic, afebrile. -UA negative'
07/09 hospitalist progress note states 'start IV ceftriaxone for UTI acute leukocytosis- worsening today, UTI'
T max 101.6 07/10
07/09 wbc 16.0
07/09 heart rate documented 60-72
07/09 Respiratory rate 14-18
Please clarify which of the following most accurately describes the status of the patient's infection:
Sepsis
- Systemic manifestations of infection, with 2 or more SIRS criteria which include:
- Fever >100.4 degrees F or hypothermia < 96.8 degrees F
- Leukocytosis - WBC > 12,000 or leukopenia - WBC < 4,000 or > 10% bands
- Tachycardia > 90 beats per minute
- Tachypnea - RR > 20 breaths per minute or PaCO2 , 32mmHg
Source: Merck Manual 2013
Localized Infection Only, Without Systemic Illness
Other
Use of terms such as suspected, likely, concern for, or probable (associated with a specific diagnosis that is being evaluated, monitored, or treated as if it exists) are acceptable and can be coded in the inpatient setting, when documented at the
time of discharge.
Thank you,
Pura Schultz RN, BSN
CDI Specialist
tiger text
Please use your independent medical judgment in providing your response.
[2023-07-11] MEDS: NOVOLOG FLEXPEN-LOW RESISTANCE 1 UNITS SC ×2 (13:31→17:53)
[2023-07-11 15:00] VITALS: BP 141/55; BP 141/58; BP 178/64; PULSE 64; O2SAT 96; O2SAT 97
[2023-07-11 15:15] LABS: Glucose - Point of Care 180 mg/dl (70-99)
[2023-07-11 15:30] VITALS: BP 141/55
[2023-07-11 21:22] LABS: Glucose - Point of Care 150 mg/dl (70-99)
[2023-07-11 23:00] VITALS: BP 145/55
[2023-07-12] MEDS: LOPRESSOR 12.5 MG PO ×3 (00:02→21:21)
[2023-07-12] MEDS: ZOLOFT 100 MG PO ×2 (00:03→21:21)
[2023-07-12] MEDS: PROTONIX 40 MG PO ×2 (00:03→21:21)
[2023-07-12] MEDS: LIPITOR 20 MG PO ×2 (00:03→21:21)
[2023-07-12] MEDS: ARICEPT 10 MG PO ×2 (00:03→21:21)
[2023-07-12] MEDS: TYLENOL 650 MG PO (05:22)
[2023-07-12 05:43] VITALS: BMI 23.3
[2023-07-12 07:00] VITALS: BP 140/52
[2023-07-12 07:34] LABS: Glucose - Point of Care 124 mg/dl (70-99)
[2023-07-12] MEDS: NOVOLOG FLEXPEN-LOW RESISTANCE SC (07:54)
[2023-07-12 08:32] LABS: % Basophils 0.2 % (0-2); % Eosinophils 0.7 % (0-6); % Immature Granulocytes 0.4 % (0-0.5); % Lymphocytes 11.7 % (20.5-51.1); % Monocytes 8.1 % (1.7-9.3); % Neutrophils 78.9 % (42.2-75.2); Absolute Eosinophils 0.1 10^3/uL (0-0.7); Absolute Immature Granulocytes 0.1 10^3/uL (0-0.05); Absolute Lymphocytes 1.6 10^3/uL (1.2-3.4); Absolute Monocytes 1.1 10^3/uL (0.1-0.6); Absolute Neutrophils 10.5 10^3/uL (1.4-6.5); Hemoglobin 12.2 g/dL (13.0-18.0); Mean Corp Hgb Conc. 33.9 g/dL (33.0-37.0); Mean Corpuscular Hgb 30.5 pg (27.0-31.0); Mean Platelet Volume 11.7 fL (7.4-10.4); Nucleated Red Blood Cells % 0 % (-); Platelet Count 179 10^3/uL (130-400); Red Cell Dist. Width 13.2 % (11.5-14.5); White Blood Cell Count 13.4 10^3/uL (4.8-10.8)
[2023-07-12] MEDS: KEPPRA 750 MG PO (08:43)
[2023-07-12] MEDS: VITAMIN B1 100 MG PO (08:44)
[2023-07-12] MEDS: NORVASC 10 MG PO (08:44)
[2023-07-12] MEDS: PLAVIX 75 MG PO (08:44)
[2023-07-12 09:41] LABS: Blood Urea Nitrogen 28 mg/dl (9-20); Calcium 8.4 mg/dl (8.4-10.2); Carbon Dioxide 24 mmol/L (22-30); Chloride 108 mmol/L (98-107); Estimated Creatinine Clearance 96 ml/min; Glucose 118 mg/dl (70-99); Potassium 4.1 mmol/L (3.5-5.1); Sodium 135 mmol/L (135-145); eGFR > 60.00
--- NOTE | 2023-07-12 11:38 | W.PN.UPDATE ---
Update Note
Progress Note Update
patient seen chart reviewed. spoke with nursing, dr peralta and with parth salazar the patient was calmly resting in bed. he has had fever workup and treatment progressing. likely uti. he has been cooperative for the past 24 hours. last night i am told
by nursing was actually a much better night than that before. he is only on zoloft and aricept re psych . there is a prn of zyprexa 2.5 mg po which he had not used. no changes made in psych medications. he is for snf eventually. will follow
[2023-07-12 11:49] LABS: Glucose - Point of Care 185 mg/dl (70-99)
[2023-07-12] MEDS: NOVOLOG FLEXPEN-LOW RESISTANCE 1 UNITS SC ×2 (12:05→17:46)
[2023-07-12] MEDS: STERILE WATER FOR INJECTION 10 ML IV (12:06)
[2023-07-12] MEDS: ROCEPHIN 1000 MG IV (12:06)
--- NOTE | 2023-07-12 12:11 | W.PN.HOSP.TC ---
Addendum entered and electronically signed by April Holloway MD 07/12/23 14:25:
sepsis 2/2 UTI
-continue ceftriaxone as below
Alzheimer's dementia suspected
-discussed progression with over phone today
SNF post DC, will likely need alf placement
Original Note:
Today's Communication/Plan
-
IV Ceftriaxone
monitor WBC and fever curve
zyprexa PRN
eventual SNF
Assessment / Plan
Assessment / Plan
#Acute agitation Hx dementia
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
-appreciate psychiatry consult
-[employer] Zoloft
-Continue donepezil
-Zyprexa PRN
-appreciate ST Eval - diet advanced
-Consult PT/OT/case management for possible SNF placement
#Seizure disorder status post brain injury 02/24/2011 treated at [place], second brain hemorrhage treated at [place] 2010
-change keppra to PO
#Fall with laceration scalp right-sided
-Requiring didi in ER
-will need removal approximately 7 to 10 days (07/13-07/16)
CT cervical spine: No acute abnormalities multilevel cervical DDD
CT head: Encephalomalacia subjacent to 6 cm right temporal parietal craniotomy, moderate diffuse cortical atrophy, small right parietal scalp hematoma
EKG: Sinus bradycardia with PACs 59 bpm, QTc 435 MS
Fevers
#Acute leukocytosis
UTI
-further work-up neg (CXR, covid, flu, blood cultures)
-continue IV Ceftriaxone for UTI (day 3)
-WBC improved today
-will continue to monitor with improvement WBC, consider further imaging if continues to spike fevers through tomorrow
#TIAs 2012, 2013
-Continue Plavix 75 mg daily, statin, beta-beka - resumed now that he can take PO
#DM2
Accu-Cheks with SSI, check HgbA1c
#HTN�benign
152/58
-Continue amlodipine 10 mg daily, metoprolol tartrate 12.5 mg twice daily
#HLD
Continue statin
# GERD
-Continue Protonix 40 mg at bedtime
#Hearing impaired bilaterally
DVT prophylaxis
SCDs
DNR per Frances at bedside
Anticipated Discharge: 24 - 48 hours
Subjective/Interval History
-
Date of Service: July 12, 2023
no new complaints
Objective Data
-
Labs:
Laboratory Results
07/12/23
07:54
WBC 13.4 H
Hgb 12.2 L
Hct 36.0 L
Plt Count 179
Sodium 135
Potassium 4.1
Chloride 108 H
Carbon Dioxide 24
BUN 28 H
Creatinine 0.7
Glucose 118 H
Calcium 8.4
Vital Signs:
Vital Signs
Temp Pulse Resp BP Pulse Ox
98.7 F 54 16 140/52 92
07/12/23 07:00 07/12/23 07:00 07/12/23 07:00 07/12/23 07:00 07/12/23 07:00
I&O
07/11/23 07/12/23 07/13/23
06:59 06:59 06:59
Intake Total 870 / 870 960 / 960
Balance 870 / 870 960 / 960
Review of Systems
-
History Source: Patient
All other systems: Reviewed and negative
Physical Exam
-
General: Appears Chronically Ill
HEENT: PERRLA
Respiratory: Clear to Auscultation
Cardiac: Regular Rhythm and S1/S2
GI: Nondistended
Genito-urinary: Negative Sandoval
Neuro: Awake and Alert
Psych: Apparent Dementia
Data Reviewed
-
Diagnostic Radiology: Report Reviewed by me
Labs: Labs Reviewed by me
[2023-07-12 15:00] VITALS: BP 151/87
--- NOTE | 2023-07-12 15:59 | CM ---
Discussion with spouse bedside.
Patient calm.
PT/OT recommending skilled rehab.
is beside herself and has contacted an elder law claim attorney for assistance.
[facility], [facility] and [facility] considering patient.
First choice [facility] then [facility], then [facility].
Financial applications provided.
requested overnight to make decision.
Will contact spouse in am.
Patient will require insurance auth.
Plan: skilled rehab, possible LTC when bed available and auth received.
[2023-07-12] MEDS: ZYPREXA ZYDIS (ORALLY DISINTEGRATING) 2.5 MG PO (16:11)
--- NOTE | 2023-07-12 16:34 | PTCARENOTE ---
pt was calm and relaxed throughout the day. pt started to become slightly agitated and got increasingly worse when his came to see him. patient was given Zyprexa 2.5mg PO to help calm him down some. will continue to monitor mentation status
[2023-07-12 16:59] LABS: Glucose - Point of Care 173 mg/dl (70-99)
[2023-07-12 21:19] VITALS: BP 153/63
[2023-07-12 21:36] LABS: Glucose - Point of Care 217 mg/dl (70-99)
[2023-07-12 23:53] VITALS: BP 157/65
[2023-07-13] MEDS: ZYPREXA ZYDIS (ORALLY DISINTEGRATING) 2.5 MG PO ×2 (00:18→16:58)
--- NOTE | 2023-07-13 01:53 | PTCARENOTE ---
Pt remains calm but continues to attempt to get OOB despite PRN PO Zyprexa administration. Pt placed on Med Sitter for safety and risk for unintentional injury.
[2023-07-13 07:00] VITALS: BP 163/64
[2023-07-13 07:23] LABS: Glucose - Point of Care 163 mg/dl (70-99)
[2023-07-13 07:55] LABS: % Basophils 0.2 % (0-2); % Eosinophils 0.1 % (0-6); % Immature Granulocytes 0.5 % (0-0.5); % Lymphocytes 6.8 % (20.5-51.1); % Monocytes 8.4 % (1.7-9.3); Absolute Immature Granulocytes 0.1 10^3/uL (0-0.05); Absolute Monocytes 1.2 10^3/uL (0.1-0.6); Absolute Neutrophils 12.2 10^3/uL (1.4-6.5); Hematocrit 39.1 % (39.0-52.0); Mean Corp Hgb Conc. 33.2 g/dL (33.0-37.0); Mean Corpuscular Volume 90.1 fL (80.0-94.0); Mean Platelet Volume 11.6 fL (7.4-10.4); Nucleated Red Blood Cells % 0 % (-); Platelet Count 213 10^3/uL (130-400); Red Blood Cell Count 4.34 10^6/uL (4.70-6.10); Red Cell Dist. Width 12.9 % (11.5-14.5); White Blood Cell Count 14.5 10^3/uL (4.8-10.8)
[2023-07-13] MEDS: PLAVIX 75 MG PO (08:28)
[2023-07-13] MEDS: LOPRESSOR 12.5 MG PO ×2 (08:28→21:32)
[2023-07-13] MEDS: KEPPRA 750 MG PO (08:29)
[2023-07-13] MEDS: NORVASC 10 MG PO (08:29)
[2023-07-13] MEDS: VITAMIN B1 100 MG PO (08:30)
[2023-07-13] MEDS: NOVOLOG FLEXPEN-LOW RESISTANCE 1 UNITS SC ×2 (08:33→16:01)
[2023-07-13 08:40] LABS: Blood Urea Nitrogen 37 mg/dl (9-20); Calcium 8.7 mg/dl (8.4-10.2); Carbon Dioxide 27 mmol/L (22-30); Chloride 104 mmol/L (98-107); Estimated Creatinine Clearance 56 ml/min; Glucose 166 mg/dl (70-99); Potassium 4.1 mmol/L (3.5-5.1); Sodium 138 mmol/L (135-145); eGFR > 60.00
[2023-07-13 09:10] VITALS: BP 163/64
--- NOTE | 2023-07-13 10:00 | CM ---
Addendum entered by Halima Mcdermott 07/13/23 15:19:
Spoke with spouse bedside. will proceed with [facility] when medically stable and off medsitter.
Original Note:
Left VM for spouse re disposition, options [facility], [facility] and [facility].
Await [facility].
Patient will require insurance auth.
Plan: skilled rehab
[2023-07-13 11:49] LABS: Glucose - Point of Care 144 mg/dl (70-99)
--- NOTE | 2023-07-13 12:16 | W.PN.HOSP.TC ---
Today's Communication/Plan
-
dispo planning
IV Ceftriaxone
monitor fever/WBC
Assessment / Plan
Assessment / Plan
#Acute agitation Hx dementia
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
-progressive worsening over past 2 years per , unable to care for him at home
-appreciate psychiatry consult
-ACTUARIAL INTERNSHIP Zoloft
-Continue donepezil
-Zyprexa PRN
-appreciate ST Eval - diet advanced
-Consult PT/OT/case management for possible SNF placement
#Seizure disorder status post brain injury 02/24/2011 treated at [facility], second brain hemorrhage treated at [facility] 2010
-continue ACTUARIAL INTERNSHIP Keppra
#Fall with laceration scalp right-sided
-Requiring didi in ER
-will need removal approximately 7 to 10 days (07/13-07/16)
CT cervical spine: No acute abnormalities multilevel cervical DDD
CT head: Encephalomalacia subjacent to 6 cm right temporal parietal craniotomy, moderate diffuse cortical atrophy, small right parietal scalp hematoma
EKG: Sinus bradycardia with PACs 59 bpm, QTc 435 MS
Fevers
#Acute leukocytosis
UTI
-further work-up neg (CXR, covid, flu, blood cultures)
-continue IV Ceftriaxone for UTI (day 06/30)
-WBC mildly up but now no fevers > 24 hours
#TIAs 2012, 2013
-Continue Plavix 75 mg daily, statin, beta-beka
#DM2
Accu-Cheks with SSI, check HgbA1c
#HTN�benign
152/58
-Continue amlodipine 10 mg daily, metoprolol tartrate 12.5 mg twice daily
#HLD
Continue statin
# GERD
-Continue Protonix 40 mg at bedtime
#Hearing impaired bilaterally
DVT prophylaxis
SCDs
DNR per Frances at bedside
Anticipated Discharge: 24 - 48 hours
Subjective/Interval History
-
Date of Service: July 13, 2023
no new complaints
no fevers overnight
Objective Data
-
Labs:
Laboratory Results
07/13/23
07:24
WBC 14.5 H
Hgb 13.0
Hct 39.1
Plt Count 213
Sodium 138
Potassium 4.1
Chloride 104
Carbon Dioxide 27
BUN 37 H
Creatinine 1.2
Glucose 166 H
Calcium 8.7
Vital Signs:
Vital Signs
Temp Pulse Resp BP Pulse Ox
99.4 F 60 14 163/64 96
07/13/23 07:00 07/13/23 07:00 07/13/23 07:00 07/13/23 07:00 07/13/23 07:00
I&O
07/12/23 07/13/23 07/14/23
06:59 06:59 06:59
Intake Total 960 / 960 960 / 960
Balance 960 / 960 960 / 960
Review of Systems
-
History Source: Patient
All other systems: Reviewed and negative
Physical Exam
-
General: Appears Chronically Ill
HEENT: PERRLA
Respiratory: Clear to Auscultation
Cardiac: Regular Rhythm and S1/S2
GI: Nondistended
Genito-urinary: Negative Sandoval
Neuro: Awake and Alert
Psych: Apparent Dementia
Data Reviewed
-
Diagnostic Radiology: Report Reviewed by me
Labs: Labs Reviewed by me
--- NOTE | 2023-07-13 12:36 | W.PN.UPDATE ---
Update Note
Progress Note Update
chart reviewed. spoke with patient primary care md who had been with patient. he was 'rammy' earlier this am but did settle down. at this moment he is resting in bed and is asleep. i did not attempt to wake him . he had been on med sitter which
staff is trying to discontinue in the hope he will continue to remain manageable. did not change any of his meds. psych will follow.
[2023-07-13] MEDS: NOVOLOG FLEXPEN-LOW RESISTANCE SC (13:04)
[2023-07-13] MEDS: STERILE WATER FOR INJECTION 10 ML IV (13:06)
[2023-07-13] MEDS: ROCEPHIN 1000 MG IV (13:06)
[2023-07-13 15:00] VITALS: BP 147/54
[2023-07-13 16:02] LABS: Glucose - Point of Care 157 mg/dl (70-99)
[2023-07-13 16:18] LABS: Glucose - Point of Care 182 mg/dl (70-99)
--- NOTE | 2023-07-13 17:00 | PTCARENOTE ---
Patient began to acutely scream out curse words, yell at staff, then began to swing hands at staff while staff tried to reposition him. Pt was ultimately able to be repositioned. Pad checked for incontinence, pad and brief were dry. PCT now feeding
pt dinner. Pt continues to shout curse words at PCT, but is eating dinner. Oral Zyprexa given.
[2023-07-13 21:17] LABS: Glucose - Point of Care 155 mg/dl (70-99)
[2023-07-13] MEDS: ZOLOFT 100 MG PO (21:32)
[2023-07-13] MEDS: LIPITOR 20 MG PO (21:32)
[2023-07-13] MEDS: PROTONIX 40 MG PO (21:32)
[2023-07-13] MEDS: ARICEPT 10 MG PO (21:32)
[2023-07-13 23:20] VITALS: BP 157/59
[2023-07-14 07:00] VITALS: BP 164/71
[2023-07-14 07:47] LABS: Glucose - Point of Care 140 mg/dl (70-99)
[2023-07-14] MEDS: NOVOLOG FLEXPEN-LOW RESISTANCE SC (07:54)
[2023-07-14] MEDS: VITAMIN B1 100 MG PO (07:54)
[2023-07-14] MEDS: PLAVIX 75 MG PO (07:54)
[2023-07-14] MEDS: KEPPRA 750 MG PO (07:54)
[2023-07-14] MEDS: NORVASC 10 MG PO (07:55)
[2023-07-14] MEDS: LOPRESSOR 12.5 MG PO ×2 (07:57→20:04)
[2023-07-14 08:04] LABS: % Basophils 0.3 % (0-2); % Eosinophils 0.2 % (0-6); % Immature Granulocytes 0.5 % (0-0.5); % Lymphocytes 9.8 % (20.5-51.1); % Monocytes 9.4 % (1.7-9.3); % Neutrophils 79.8 % (42.2-75.2); Absolute Immature Granulocytes 0.1 10^3/uL (0-0.05); Absolute Lymphocytes 1.4 10^3/uL (1.2-3.4); Absolute Monocytes 1.4 10^3/uL (0.1-0.6); Absolute Neutrophils 11.7 10^3/uL (1.4-6.5); Hematocrit 37.1 % (39.0-52.0); Hemoglobin 12.4 g/dL (13.0-18.0); Mean Corp Hgb Conc. 33.4 g/dL (33.0-37.0); Mean Corpuscular Hgb 29.7 pg (27.0-31.0); Mean Platelet Volume 11.4 fL (7.4-10.4); Nucleated Red Blood Cells % 0 % (-); Platelet Count 201 10^3/uL (130-400); Red Blood Cell Count 4.17 10^6/uL (4.70-6.10); Red Cell Dist. Width 13.3 % (11.5-14.5); White Blood Cell Count 14.7 10^3/uL (4.8-10.8)
--- NOTE | 2023-07-14 10:22 | W.PN.UPDATE ---
Update Note
Progress Note Update
Patient is presently not agitated and calm but yesterday the care note reports he was quite agitated and screaming and Zyprexa 2.5 mg had to be given.
Patient has severe cognitive loss and is not responding to verbal interactions.
If the agitation recurs on regularly I would use the Zyprexa on scheduled basis.
Will continue F/U.
[2023-07-14 11:47] LABS: Glucose - Point of Care 170 mg/dl (70-99)
[2023-07-14] MEDS: STERILE WATER FOR INJECTION 10 ML IV (11:50)
[2023-07-14] MEDS: ROCEPHIN 1000 MG IV (11:50)
[2023-07-14] MEDS: NOVOLOG FLEXPEN-LOW RESISTANCE 1 UNITS SC ×2 (11:51→16:40)
--- NOTE | 2023-07-14 12:00 | W.PN.HOSP.TC ---
Today's Communication/Plan
-
renal US
hopefully SNF tomorrow
IV Ceftriaxone
Assessment / Plan
Assessment / Plan
#Acute agitation Hx dementia
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
-progressive worsening over past 2 years per , unable to care for him at home
-appreciate psychiatry consult
-PROJECT GEOPHYSICIST Zoloft
-Continue donepezil
-Zyprexa PRN - make standing if has persistent agitation
-appreciate ST Eval - diet advanced
-hopefully SNF tomorrow
#Seizure disorder status post brain injury 02/24/2011 treated at [facility], second brain hemorrhage treated at [place] 2010
-continue PROJECT GEOPHYSICIST Keppra
#Fall with laceration scalp right-sided
-Requiring didi in ER
-will need removal approximately 7 to 10 days (07/13-07/16)
CT cervical spine: No acute abnormalities multilevel cervical DDD
CT head: Encephalomalacia subjacent to 6 cm right temporal parietal craniotomy, moderate diffuse cortical atrophy, small right parietal scalp hematoma
EKG: Sinus bradycardia with PACs 59 bpm, QTc 435 MS
Fevers
#Acute leukocytosis
UTI
-further work-up neg (CXR, covid, flu, blood cultures)
-continue IV Ceftriaxone for UTI (day 57)
-WBC mildly up but now no fevers > 24 hours
-with persistent WBC elevation will obtain renal US
#TIAs 2012, 2013
-Continue Plavix 75 mg daily, statin, beta-beka
#DM2
Accu-Cheks with SSI, check HgbA1c
#HTN�benign
152/58
-Continue amlodipine 10 mg daily, metoprolol tartrate 12.5 mg twice daily
#HLD
Continue statin
# GERD
-Continue Protonix 40 mg at bedtime
#Hearing impaired bilaterally
DVT prophylaxis
SCDs
DNR per Fracnes at bedside
Anticipated Discharge: 24 - 48 hours
Subjective/Interval History
-
Date of Service: July 14, 2023
unable to assess
Objective Data
-
Labs:
Laboratory Results
07/14/23
07:42
WBC 14.7 H
Hgb 12.4 L
Hct 37.1 L
Plt Count 201
Vital Signs:
Vital Signs
Temp Pulse Resp BP Pulse Ox
99.0 F 75 16 164/74 97
07/14/23 07:00 07/14/23 07:55 07/14/23 07:00 07/14/23 07:55 07/14/23 07:00
I&O
07/13/23 07/14/23 07/15/23
06:59 06:59 06:59
Intake Total 960 / 960 360 / 360
Balance 960 / 960 360 / 360
Review of Systems
-
Unable to obtain full review of systems at this time due to: Dementia
History Source: Patient
Physical Exam
-
General: Appears Chronically Ill
HEENT: PERRLA
Respiratory: Clear to Auscultation
Cardiac: Regular Rhythm and S1/S2
GI: Nondistended
Genito-urinary: Negative Sandoval
Neuro: Awake and Alert
Psych: Apparent Dementia
Data Reviewed
-
Diagnostic Radiology: Report Reviewed by me
Labs: Labs Reviewed by me
--- NOTE | 2023-07-14 14:27 | W.PN.UPDATE ---
Update Note
Progress Note Update
imaging showed patient was retaining
s/p straight cath with 1.5L out
will order BMP now
[2023-07-14 15:00] VITALS: BP 141/56
[2023-07-14 15:12] LABS: Blood Urea Nitrogen 71 mg/dl (9-20); Calcium 8.7 mg/dl (8.4-10.2); Carbon Dioxide 25 mmol/L (22-30); Chloride 107 mmol/L (98-107); Estimated Creatinine Clearance 24 ml/min; Glucose 200 mg/dl (70-99); Potassium 4.5 mmol/L (3.5-5.1); Sodium 139 mmol/L (135-145); eGFR 22.96
[2023-07-14 16:35] LABS: Glucose - Point of Care 176 mg/dl (70-99)
[2023-07-14] MEDS: FLOMAX 0.400000000000000022 MG PO (16:40)
[2023-07-14 21:30] LABS: Glucose - Point of Care 136 mg/dl (70-99)
[2023-07-14] MEDS: PROTONIX 40 MG PO (21:43)
[2023-07-14] MEDS: ARICEPT 10 MG PO (21:43)
[2023-07-14] MEDS: LIPITOR 20 MG PO (21:43)
[2023-07-14] MEDS: ZOLOFT 100 MG PO (21:43)
[2023-07-14 23:23] VITALS: BP 148/58
[2023-07-15 07:05] LABS: % Basophils 0.4 % (0-2); % Eosinophils 0.8 % (0-6); % Immature Granulocytes 0.7 % (0-0.5); % Lymphocytes 15.8 % (20.5-51.1); % Monocytes 9.9 % (1.7-9.3); % Neutrophils 72.4 % (42.2-75.2); Absolute Basophils 0.1 10^3/uL (0-0.2); Absolute Eosinophils 0.1 10^3/uL (0-0.7); Absolute Immature Granulocytes 0.1 10^3/uL (0-0.05); Absolute Lymphocytes 1.8 10^3/uL (1.2-3.4); Absolute Monocytes 1.1 10^3/uL (0.1-0.6); Absolute Neutrophils 8.4 10^3/uL (1.4-6.5); Hematocrit 35.8 % (39.0-52.0); Hemoglobin 11.8 g/dL (13.0-18.0); Mean Corpuscular Hgb 29.7 pg (27.0-31.0); Mean Corpuscular Volume 90.2 fL (80.0-94.0); Mean Platelet Volume 11.6 fL (7.4-10.4); Nucleated Red Blood Cells % 0 % (-); Platelet Count 182 10^3/uL (130-400); Red Blood Cell Count 3.97 10^6/uL (4.70-6.10); Red Cell Dist. Width 13.2 % (11.5-14.5); White Blood Cell Count 11.6 10^3/uL (4.8-10.8)
[2023-07-15 07:32] LABS: Blood Urea Nitrogen 44 mg/dl (9-20); Calcium 8.8 mg/dl (8.4-10.2); Carbon Dioxide 29 mmol/L (22-30); Chloride 110 mmol/L (98-107); Estimated Creatinine Clearance 61 ml/min; Glucose 154 mg/dl (70-99); Potassium 3.9 mmol/L (3.5-5.1); Sodium 143 mmol/L (135-145); eGFR > 60.00
[2023-07-15 07:47] LABS: Glucose - Point of Care 152 mg/dl (70-99)
[2023-07-15 07:52] VITALS: BP 144/81
[2023-07-15] MEDS: NOVOLOG FLEXPEN-LOW RESISTANCE 1 UNITS SC (07:53)
[2023-07-15] MEDS: NORVASC 10 MG PO (07:53)
[2023-07-15] MEDS: FLOMAX 0.400000000000000022 MG PO (07:54)
[2023-07-15] MEDS: KEPPRA 750 MG PO (07:54)
[2023-07-15] MEDS: VITAMIN B1 100 MG PO (07:54)
[2023-07-15] MEDS: LOPRESSOR 12.5 MG PO (07:54)
[2023-07-15] MEDS: PLAVIX 75 MG PO (07:55)
--- NOTE | 2023-07-15 11:36 | W.PN.UPDATE ---
Update Note
Progress Note Update
Patient is drowsy and difficult to awake. Presently is calm, not agitated or aggressive.
For now would continue current treatment.
[2023-07-15] MEDS: STERILE WATER FOR INJECTION 10 ML IV (11:40)
[2023-07-15] MEDS: ROCEPHIN 1000 MG IV (11:41)
[2023-07-15 12:05] LABS: Glucose - Point of Care 129 mg/dl (70-99)
[2023-07-15] MEDS: NOVOLOG FLEXPEN-LOW RESISTANCE SC (12:05)
--- NOTE | 2023-07-15 12:57 | W.PN.HOSP.TC ---
Addendum entered and electronically signed by April Holloway MD 07/15/23 14:24:
scalp laceration didi out - 7 didi removed.
Original Note:
Today's Communication/Plan
-
see plan
Assessment / Plan
Assessment / Plan
#Acute agitation Hx dementia
#Hx with history TBI/brain injury brain hemorrhage 02-24-2011 [facility]
-progressive worsening over past 2 years per , unable to care for him at home
-appreciate psychiatry consult
-COSMETIC SALES CONSULTANT Zoloft
-Continue donepezil
-Zyprexa PRN - make standing if has persistent agitation
-appreciate ST Eval - diet advanced
Acute Urinary Retention
TITUS 2/2 retention
-US ordered for persistent elevated WBC in setting of UTI with finding significantly distended bladder. With TITUS s/p abbott catheter placement on 07/13
-etiology of retention likely related to UTI, less likely AE zyprexa given very little dose given. may have pre-existing BPH
-renal function improved today
-flomax initiated 07/13 given retention while treating UTI with abx
-consider voiding trial in 1-2 days prior to DC to SNF
-repeat BMP tomorrow
#Seizure disorder status post brain injury 02/24/2011 treated at [place], second brain hemorrhage treated at [place] 2010
-continue COSMETIC SALES CONSULTANT Keppra
Fevers
Sepsis 2/2 UTI
-further work-up neg (CXR, covid, flu, blood cultures)
-continue IV Ceftriaxone for UTI (day 6/7)
-WBC coming down today s/p abbott catheter
#Fall with laceration scalp right-sided
-Required didi in ER - will remove at bedside today
CT cervical spine: No acute abnormalities multilevel cervical DDD
CT head: Encephalomalacia subjacent to 6 cm right temporal parietal craniotomy, moderate diffuse cortical atrophy, small right parietal scalp hematoma
EKG: Sinus bradycardia with PACs 59 bpm, QTc 435 MS
#TIAs 2012, 2013
-Continue Plavix 75 mg daily, statin, beta-beka
#DM2
Accu-Cheks with SSI, check HgbA1c
#HTN�benign
152/58
-Continue amlodipine 10 mg daily, metoprolol tartrate 12.5 mg twice daily
#HLD
Continue statin
# GERD
-Continue Protonix 40 mg at bedtime
#Hearing impaired bilaterally
DVT prophylaxis hep subQ
DNR per Frances at bedside
Anticipated Discharge: 24 - 48 hours
Subjective/Interval History
-
Date of Service: July 15, 2023
per RN, patient is more calm today
Objective Data
-
Labs:
Laboratory Results
07/15/23
06:37
WBC 11.6 H
Hgb 11.8 L
Hct 35.8 L
Plt Count 182
Sodium 143
Potassium 3.9
Chloride 110 H
Carbon Dioxide 29
BUN 44 H
Creatinine 1.1
Glucose 154 H
Calcium 8.8
Vital Signs:
Vital Signs
Temp Pulse Resp BP Pulse Ox
98.7 F 73 16 146/66 96
07/15/23 07:52 07/15/23 07:52 07/15/23 07:52 07/15/23 07:53 07/15/23 07:52
I&O
07/14/23 07/15/23 07/16/23
06:59 06:59 06:59
Intake Total 360 / 360 120 / 120
Output Total 2800 / 2800
Balance 360 / 360 -2680 / -2680
Review of Systems
-
Unable to obtain full review of systems at this time due to: Patient Non-verbal
History Source: Patient
Physical Exam
-
General: Appears Chronically Ill
HEENT: PERRLA
Respiratory: Clear to Auscultation
Cardiac: Regular Rhythm and S1/S2
GI: Nondistended
Genito-urinary: Negative Abbott
Neuro: Awake and Alert
Psych: Apparent Dementia
Data Reviewed
-
Diagnostic Radiology: Report Reviewed by me
Labs: Labs Reviewed by me
[2023-07-15 16:05] VITALS: BP 139/81
[2023-07-15] MEDS: NOVOLOG FLEXPEN-LOW RESISTANCE 2 UNITS SC (16:29)
[2023-07-15 16:30] LABS: Glucose - Point of Care 211 mg/dl (70-99)
[2023-07-15] MEDS: LIPITOR 20 MG PO (21:10)
[2023-07-15] MEDS: ZOLOFT 100 MG PO (21:10)
[2023-07-15] MEDS: HEPARIN 5000 UNITS SC (21:10)
[2023-07-15] MEDS: ARICEPT 10 MG PO (21:10)
[2023-07-15] MEDS: PROTONIX 40 MG PO (21:10)
[2023-07-15 21:19] LABS: Glucose - Point of Care 132 mg/dl (70-99)
[2023-07-15] MEDS: LOPRESSOR PO (21:20)
[2023-07-15 23:12] VITALS: BP 132/49
[2023-07-16 07:30] VITALS: BP 129/49
[2023-07-16 07:44] LABS: Glucose - Point of Care 145 mg/dl (70-99)
[2023-07-16] MEDS: NOVOLOG FLEXPEN-LOW RESISTANCE SC (07:48)
[2023-07-16] MEDS: FLOMAX 0.400000000000000022 MG PO (07:48)
[2023-07-16] MEDS: VITAMIN B1 100 MG PO (07:48)
[2023-07-16] MEDS: NORVASC 10 MG PO (07:49)
[2023-07-16] MEDS: LOPRESSOR 12.5 MG PO ×2 (07:49→20:50)
[2023-07-16] MEDS: PLAVIX 75 MG PO (07:49)
[2023-07-16] MEDS: HEPARIN 5000 UNITS SC ×2 (07:51→20:50)
[2023-07-16] MEDS: KEPPRA 750 MG PO (07:52)
[2023-07-16 09:24] LABS: % Basophils 0.4 % (0-2); % Eosinophils 0.8 % (0-6); % Immature Granulocytes 0.5 % (0-0.5); % Lymphocytes 16.4 % (20.5-51.1); % Neutrophils 72.9 % (42.2-75.2); Absolute Basophils 0.1 10^3/uL (0-0.2); Absolute Eosinophils 0.1 10^3/uL (0-0.7); Absolute Immature Granulocytes 0.1 10^3/uL (0-0.05); Absolute Lymphocytes 1.9 10^3/uL (1.2-3.4); Absolute Monocytes 1.1 10^3/uL (0.1-0.6); Absolute Neutrophils 8.6 10^3/uL (1.4-6.5); Hematocrit 35.7 % (39.0-52.0); Hemoglobin 11.7 g/dL (13.0-18.0); Mean Corp Hgb Conc. 32.8 g/dL (33.0-37.0); Mean Corpuscular Hgb 29.6 pg (27.0-31.0); Mean Corpuscular Volume 90.4 fL (80.0-94.0); Mean Platelet Volume 11.7 fL (7.4-10.4); Nucleated Red Blood Cells % 0 % (-); Platelet Count 203 10^3/uL (130-400); Red Blood Cell Count 3.95 10^6/uL (4.70-6.10); Red Cell Dist. Width 12.8 % (11.5-14.5); White Blood Cell Count 11.7 10^3/uL (4.8-10.8)
[2023-07-16 10:11] LABS: Blood Urea Nitrogen 28 mg/dl (9-20); Calcium 8.8 mg/dl (8.4-10.2); Carbon Dioxide 29 mmol/L (22-30); Chloride 109 mmol/L (98-107); Estimated Creatinine Clearance 84 ml/min; Glucose 146 mg/dl (70-99); Potassium 4.6 mmol/L (3.5-5.1); Sodium 143 mmol/L (135-145); eGFR > 60.00
[2023-07-16 11:14] LABS: Glucose - Point of Care 211 mg/dl (70-99)
[2023-07-16] MEDS: NOVOLOG FLEXPEN-LOW RESISTANCE 2 UNITS SC (11:17)
[2023-07-16] MEDS: ROCEPHIN 1000 MG IV (11:19)
[2023-07-16] MEDS: STERILE WATER FOR INJECTION 10 ML IV (11:19)
--- NOTE | 2023-07-16 11:55 | W.PN.HOSP.TC ---
Today's Communication/Plan
-
await placement to SNF
Assessment / Plan
Assessment / Plan
#Acute agitation Hx dementia
#Hx with history TBI/brain injury brain hemorrhage 02-24-2011 [facility]
-progressive worsening over past 2 years per , unable to care for him at home
-appreciate psychiatry consult
-SHINGLE BOLT CUTTER Zoloft
-Continue donepezil
-Zyprexa PRN - make standing if has persistent agitation
-appreciate ST Eval - diet advanced. off restraints and tele sitter.
Acute Urinary Retention
TITUS 2/2 retention
-US ordered for persistent elevated WBC in setting of UTI with finding significantly distended bladder. With TITUS s/p abbott catheter placement on 07/13
-etiology of retention likely related to UTI, less likely AE zyprexa given very little dose given. may have pre-existing BPH
-renal function improved today
-flomax initiated 07/13 given retention while treating UTI with abx
-consider voiding trial in 1-2 days or at SNF
-cr stable.
#Seizure disorder status post brain injury 02/24/2011 treated at [place], second brain hemorrhage treated at [place] 2010
-continue SHINGLE BOLT CUTTER Keppra
Fevers
Sepsis 2/2 UTI
-further work-up neg (CXR, covid, flu, blood cultures)
-continue IV Ceftriaxone for UTI and po abx on dc
-s/p abbott catheter
#Fall with laceration scalp right-sided
-Required didi in ER - s/p stables removal on 07/14
[address] cervical spine: No acute abnormalities multilevel cervical DDD
CT head: Encephalomalacia subjacent to 6 cm right temporal parietal craniotomy, moderate diffuse cortical atrophy, small right parietal scalp hematoma
EKG: Sinus bradycardia with PACs 59 bpm, QTc 435 MS
#TIAs 2012, 2013
-Continue Plavix 75 mg daily, statin, beta-beka
#DM2
Accu-Cheks with SSI, check HgbA1c
#HTN�benign
152/58
-Continue amlodipine 10 mg daily, metoprolol tartrate 12.5 mg twice daily
#HLD
Continue statin
# GERD
-Continue Protonix 40 mg at bedtime
#Hearing impaired bilaterally
DVT prophylaxis hep subQ
DNR per Frances at bedside
Anticipated Discharge: Within 24 hours
Subjective/Interval History
-
Date of Service: July 16, 2023
not agitated
watching tv
abbott remains
Objective Data
-
Labs:
Laboratory Results
07/16/23
09:01
WBC 11.7 H
Hgb 11.7 L
Hct 35.7 L
Plt Count 203
Sodium 143
Potassium 4.6
Chloride 109 H
Carbon Dioxide 29
BUN 28 H
Creatinine 0.8
Glucose 146 H
Calcium 8.8
Vital Signs:
Vital Signs
Temp Pulse Resp BP Pulse Ox
98.3 F 59 18 129/49 97
07/16/23 07:30 07/16/23 07:30 07/16/23 07:30 07/16/23 07:30 07/16/23 07:50
I&O
07/15/23 07/16/23 07/17/23
06:59 06:59 06:59
Intake Total 120 / 120 1200 / 1200
Output Total 2800 / 2800 1850 / 1850
Balance -2680 / -2680 -650 / -650
Physical Exam
-
General: Appears Chronically Ill
HEENT: Normocephalic, Atraumatic and Moist Mucous Membranes
Respiratory: Clear to Auscultation
Cardiac: Regular Rhythm and S1/S2
GI: Nondistended
Genito-urinary: Abbott
Neuro: Awake and Alert
Psych: Apparent Dementia
--- NOTE | 2023-07-16 12:04 | CM ---
Addendum entered by Halima Mcdermott 07/16/23 14:15:
Additional referrals sent for skilled rehab.
patient OOB sitting in chair.
PT/OT continues to recommend skilled rehab.
in with patient and says she cannot take him home.
Original Note:
Patient seen bedside.
Plan: Skilled rehab once medically stable and bed available. will require insurance auth.
[2023-07-16 15:30] VITALS: BP 123/42
[2023-07-16 15:38] LABS: Glucose - Point of Care 178 mg/dl (70-99)
[2023-07-16] MEDS: NOVOLOG FLEXPEN-LOW RESISTANCE 1 UNITS SC (15:57)
[2023-07-16] MEDS: ZYPREXA ZYDIS (ORALLY DISINTEGRATING) 2.5 MG PO (17:07)
[2023-07-16] MEDS: ZOLOFT 100 MG PO (21:05)
[2023-07-16] MEDS: ARICEPT 10 MG PO (21:05)
[2023-07-16] MEDS: LIPITOR 20 MG PO (21:05)
[2023-07-16] MEDS: PROTONIX 40 MG PO (21:05)
[2023-07-16 21:35] LABS: Glucose - Point of Care 114 mg/dl (70-99)
[2023-07-16 23:25] VITALS: BP 144/52
[2023-07-17 07:27] LABS: Glucose - Point of Care 120 mg/dl (70-99)
[2023-07-17 08:50] VITALS: BP 135/49
[2023-07-17] MEDS: KEPPRA 750 MG PO (08:53)
[2023-07-17] MEDS: NOVOLOG FLEXPEN-LOW RESISTANCE SC (08:53)
[2023-07-17] MEDS: LOPRESSOR 12.5 MG PO ×2 (08:53→20:43)
[2023-07-17] MEDS: VITAMIN B1 100 MG PO (08:53)
[2023-07-17] MEDS: FLOMAX 0.400000000000000022 MG PO (08:54)
[2023-07-17] MEDS: HEPARIN 5000 UNITS SC ×2 (08:54→20:40)
[2023-07-17] MEDS: PLAVIX 75 MG PO (08:54)
[2023-07-17] MEDS: NORVASC 10 MG PO (08:54)
--- NOTE | 2023-07-17 11:09 | W.PN.HOSP.TC ---
Today's Communication/Plan
-
await placement
difficult dispo
Assessment / Plan
Assessment / Plan
General: Appears Chronically Ill
HEENT: Normocephalic, Atraumatic and Moist Mucous Membranes
Respiratory: Clear to Auscultation
Cardiac: Regular Rhythm and S1/S2
GI: Nondistended
Genito-urinary: Abbott
Neuro: Awake and Alert
Psych: Apparent Dementia
#Acute agitation Hx dementia
#Hx with history TBI/brain injury brain hemorrhage 02-24-2011 [facility]
-progressive worsening over past 2 years per , unable to care for him at home
-appreciate psychiatry consult
-CAREER SERVICES REPRESENTATIVE Zoloft
-Continue donepezil
-Zyprexa PRN - make standing if has persistent agitation
-appreciate ST Eval - diet advanced. off restraints and tele sitter.
Acute Urinary Retention
TITUS 2/2 retention
-US ordered for persistent elevated WBC in setting of UTI with finding significantly distended bladder. With TITUS s/p abbott catheter placement on 07/13
-etiology of retention likely related to UTI, less likely AE zyprexa given very little dose given. may have pre-existing BPH
-renal function improved today
-flomax initiated 07/13 given retention while treating UTI with abx
-consider voiding trial in 1-2 days or at SNF
-cr stable.
#Seizure disorder status post brain injury 02/24/2011 treated at [place], second brain hemorrhage treated at [place] 2010
-continue CAREER SERVICES REPRESENTATIVE Keppra
Fevers
Sepsis 2/2 UTI
-further work-up neg (CXR, covid, flu, blood cultures)
-continue IV Ceftriaxone for UTI and po abx on dc
-s/p abbott catheter
#Fall with laceration scalp right-sided
-Required didi in ER - s/p stables removal on 07/14
[address] cervical spine: No acute abnormalities multilevel cervical DDD
CT head: Encephalomalacia subjacent to 6 cm right temporal parietal craniotomy, moderate diffuse cortical atrophy, small right parietal scalp hematoma
EKG: Sinus bradycardia with PACs 59 bpm, QTc 435 MS
#Dysphagia
-eventual VSE
-cont with current diet.
#TIAs 2012, 2013
-Continue Plavix 75 mg daily, statin, beta-beka
#DM2
Accu-Cheks with SSI. POC 120.
#HTN�benign
-Continue amlodipine 10 mg daily, metoprolol tartrate 12.5 mg twice daily
#HLD
Continue statin
# GERD
-Continue Protonix 40 mg at bedtime
#Hearing impaired bilaterally
DVT prophylaxis hep subQ
DNR per Frances
Dispo-SNF. CM aware. difficult situation due to dementia.
Anticipated Discharge: Today
Subjective/Interval History
-
Date of Service: July 17, 2023
tolerating diet
remains off restraints
Objective Data
-
Vital Signs:
Vital Signs
Temp Pulse Resp BP Pulse Ox
98.0 F 52 16 135/49 97
07/17/23 08:50 07/17/23 08:50 07/17/23 08:50 07/17/23 08:50 07/17/23 08:50
I&O
07/16/23 07/17/23 07/18/23
06:59 06:59 06:59
Intake Total 1200 / 1200 570 / 570
Output Total 1850 / 1850 1380 / 1380
Balance -650 / -650 -810 / -810
--- NOTE | 2023-07-17 11:45 | W.PN.UPDATE ---
Update Note
Progress Note Update
Patient seen, sitting upright in the chair, discussed with RN, chart reviewed. Mr. Weston is currently calm but would not engage in conversation. Staff reports he has been less agitated. He will call out and shout at times. No other issues or
concerns reported. Efforts for placement continue as is unable to care for him at home.
Impression/Plan - worsening dementia with agitation - Zyprexa available PRN, continue with efforts of redirection and nonpharmacological interventions to ensure safety. On Zoloft from home, continue. Psychiatry will follow.
[2023-07-17 12:12] LABS: Glucose - Point of Care 237 mg/dl (70-99)
[2023-07-17] MEDS: STERILE WATER FOR INJECTION 10 ML IV (13:24)
[2023-07-17] MEDS: NOVOLOG FLEXPEN-LOW RESISTANCE 2 UNITS SC (13:25)
[2023-07-17] MEDS: ROCEPHIN 1000 MG IV (13:25)
[2023-07-17 14:40] VITALS: BP 152/57
--- NOTE | 2023-07-17 14:59 | CM ---
Addendum entered by Halima Mcdermott 07/17/23 15:34:
[facility] Liaison to come and evaluate patient tomorrow.
Original Note:
Patient seen bedside.
Per nursing much calmer.
PT/OT continues to recommend skilled rehab.
in with patient and agreeable to evaluation. She spoke with an Elder care foundry technician and if patient still here the Elder Care Radio Technician will come see patient, o/w will go to whichever facility he has been admitted to.
Liaison from [facility] coming to evaluate today.
[facility] might also be able to come in site to evaluate.
Plan: Skilled rehab once bed available, and insurance authorization received.
[2023-07-17 17:33] LABS: Glucose - Point of Care 168 mg/dl (70-99)
[2023-07-17] MEDS: NOVOLOG FLEXPEN-LOW RESISTANCE 1 UNITS SC (17:47)
[2023-07-17] MEDS: ZOLOFT 100 MG PO (20:44)
[2023-07-17] MEDS: LIPITOR 20 MG PO (20:44)
[2023-07-17] MEDS: ARICEPT 10 MG PO (20:44)
[2023-07-17] MEDS: PROTONIX 40 MG PO (20:44)
[2023-07-17 21:45] LABS: Glucose - Point of Care 152 mg/dl (70-99)
[2023-07-17 23:25] VITALS: BP 117/50
[2023-07-18 07:00] VITALS: BP 121/49
[2023-07-18 07:49] LABS: Glucose - Point of Care 150 mg/dl (70-99)
[2023-07-18] MEDS: NORVASC 10 MG PO (08:51)
[2023-07-18] MEDS: KEPPRA 750 MG PO (08:51)
[2023-07-18] MEDS: FLOMAX 0.400000000000000022 MG PO (08:52)
[2023-07-18] MEDS: HEPARIN 5000 UNITS SC ×2 (08:52→19:35)
[2023-07-18] MEDS: VITAMIN B1 100 MG PO (08:52)
[2023-07-18] MEDS: LOPRESSOR 12.5 MG PO ×2 (08:52→19:36)
[2023-07-18] MEDS: PLAVIX 75 MG PO (08:52)
[2023-07-18] MEDS: NOVOLOG FLEXPEN-LOW RESISTANCE 1 UNITS SC ×2 (09:37→13:28)
--- NOTE | 2023-07-18 10:52 | W.PN.HOSP.TC ---
Today's Communication/Plan
-
Await placement
Medically stable
Assessment / Plan
Assessment / Plan
General: Appears Chronically Ill
HEENT: Normocephalic, Atraumatic and Moist Mucous Membranes
Respiratory: Clear to Auscultation
Cardiac: Regular Rhythm and S1/S2
GI: Nondistended
Genito-urinary: Abbott
Neuro: Awake and Alert
Psych: Apparent Dementia
#Acute agitation Hx dementia
#Hx with history TBI/brain injury brain hemorrhage 02-24-2011 [facility]
-progressive worsening over past 2 years per , unable to care for him at home
-appreciate psychiatry consult
-DEAN Zoloft
-Continue donepezil
-Zyprexa PRN - make standing if has persistent agitation
-appreciate ST Eval - diet advanced. off restraints and tele sitter.
Acute Urinary Retention
TITUS 2/2 retention
-US ordered for persistent elevated WBC in setting of UTI with finding significantly distended bladder. With TITUS s/p abbott catheter placement on 07/13
-etiology of retention likely related to UTI, less likely AE zyprexa given very little dose given. may have pre-existing BPH
-renal function improved today
-flomax initiated 07/13 given retention while treating UTI with abx
-consider voiding trial in 1-2 days or at SNF
-cr stable.
#Seizure disorder status post brain injury 02/24/2011 treated at [place], second brain hemorrhage treated at [place] 2010
-continue DEAN Keppra
Fevers
Sepsis 2/2 UTI
-further work-up neg (CXR, covid, flu, blood cultures)
-continue IV Ceftriaxone for UTI and po abx on dc
-s/p abbott catheter
#Fall with laceration scalp right-sided
-Required didi in ER - s/p stables removal on 07/14
CT cervical spine: No acute abnormalities multilevel cervical DDD
CT head: Encephalomalacia subjacent to 6 cm right temporal parietal craniotomy, moderate diffuse cortical atrophy, small right parietal scalp hematoma
EKG: Sinus bradycardia with PACs 59 bpm, QTc 435 MS
#Dysphagia
-eventual VSE
-cont with current diet.
#TIAs 2012, 2013
-Continue Plavix 75 mg daily, statin, beta-beka
#DM2
Accu-Cheks with SSI. POC 150.
#HTN�benign
-Continue amlodipine 10 mg daily, metoprolol tartrate 12.5 mg twice daily
#HLD
Continue statin
# GERD
-Continue Protonix 40 mg at bedtime
#Hearing impaired bilaterally
DVT prophylaxis hep subQ
DNR per Frances
Dispo-SNF. CM aware. difficult situation due to dementia.
Anticipated Discharge: Today
Subjective/Interval History
-
Date of Service: July 18, 2023
Resting in bed comfortably
Calm not agitated
Objective Data
-
Vital Signs:
Vital Signs
Temp Pulse Resp BP Pulse Ox
98.5 F 60 18 121/49 99
07/18/23 07:00 07/18/23 07:00 07/18/23 07:00 07/18/23 07:00 07/18/23 07:00
I&O
07/17/23 07/18/23 07/19/23
06:59 06:59 06:59
Intake Total 570 / 570
Output Total 1380 / 1380 1300 / 1300
Balance -810 / -810 -1300 / -1300
[2023-07-18] MEDS: STERILE WATER FOR INJECTION IV (11:34)
[2023-07-18 11:37] LABS: Glucose - Point of Care 180 mg/dl (70-99)
[2023-07-18 15:25] VITALS: BP 131/49
[2023-07-18 17:47] LABS: Glucose - Point of Care 138 mg/dl (70-99)
[2023-07-18] MEDS: NOVOLOG FLEXPEN-LOW RESISTANCE SC (17:47)
[2023-07-18 19:00] VITALS: BP 129/42
[2023-07-18] MEDS: PROTONIX 40 MG PO (21:16)
[2023-07-18] MEDS: LIPITOR 20 MG PO (21:16)
[2023-07-18] MEDS: ARICEPT 10 MG PO (21:16)
[2023-07-18] MEDS: ZOLOFT 100 MG PO (21:16)
[2023-07-18 21:26] LABS: Glucose - Point of Care 146 mg/dl (70-99)
[2023-07-18 23:02] VITALS: BP 129/49
[2023-07-19 07:30] VITALS: BP 137/58
[2023-07-19 07:35] LABS: Glucose - Point of Care 147 mg/dl (70-99)
[2023-07-19] MEDS: HEPARIN 5000 UNITS SC ×2 (07:37→20:06)
[2023-07-19] MEDS: NORVASC 10 MG PO (07:37)
[2023-07-19] MEDS: LOPRESSOR 12.5 MG PO ×2 (07:37→20:06)
[2023-07-19] MEDS: VITAMIN B1 100 MG PO (07:37)
[2023-07-19] MEDS: KEPPRA 750 MG PO (07:37)
[2023-07-19] MEDS: PLAVIX 75 MG PO (07:37)
[2023-07-19] MEDS: FLOMAX 0.400000000000000022 MG PO (07:37)
[2023-07-19] MEDS: NOVOLOG FLEXPEN-LOW RESISTANCE SC (07:48)
--- NOTE | 2023-07-19 11:18 | W.PN.HOSP.TC ---
Today's Communication/Plan
-
await placement
Assessment / Plan
Assessment / Plan
General: Appears Chronically Ill
HEENT: Normocephalic, Atraumatic and Moist Mucous Membranes
Respiratory: Clear to Auscultation
Cardiac: Regular Rhythm and S1/S2
GI: Nondistended
Genito-urinary: Abbott
Neuro: Awake and Alert
Psych: Apparent Dementia
#Acute agitation Hx dementia
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
-progressive worsening over past 2 years per , unable to care for him at home
-appreciate psychiatry consult
-VICE SQUAD POLICE OFFICER Zoloft
-Continue donepezil
-Zyprexa PRN - make standing if has persistent agitation
-appreciate ST Eval - diet advanced. off restraints and tele sitter.
Acute Urinary Retention
TITUS 2/2 retention
-US ordered for persistent elevated WBC in setting of UTI with finding significantly distended bladder. With TITUS s/p abbott catheter placement on 07/13
-etiology of retention likely related to UTI, less likely AE zyprexa given very little dose given. may have pre-existing BPH
-renal function improved today
-flomax initiated 07/13 given retention while treating UTI with abx
-consider voiding trial in 1-2 days or at SNF
-cr stable.
#Seizure disorder status post brain injury 02/24/2011 treated at [place], second brain hemorrhage treated at [place] 2010
-continue VICE SQUAD POLICE OFFICER Keppra
Fevers
Sepsis 2/2 UTI
-further work-up neg (CXR, covid, flu, blood cultures)
-continue IV Ceftriaxone for UTI and po abx on dc
-s/p abbott catheter
#Fall with laceration scalp right-sided
-Required didi in ER - s/p stables removal on 07/14
CT cervical spine: No acute abnormalities multilevel cervical DDD
CT head: Encephalomalacia subjacent to 6 cm right temporal parietal craniotomy, moderate diffuse cortical atrophy, small right parietal scalp hematoma
EKG: Sinus bradycardia with PACs 59 bpm, QTc 435 MS
#Dysphagia
-eventual VSE
-cont with current diet.
#TIAs 2012, 2013
-Continue Plavix 75 mg daily, statin, beta-beka
#DM2
Accu-Cheks with SSI. POC 147.
#HTN�benign
-Continue amlodipine 10 mg daily, metoprolol tartrate 12.5 mg twice daily
#HLD
Continue statin
# GERD
-Continue Protonix 40 mg at bedtime
#Hearing impaired bilaterally
DVT prophylaxis hep subQ
DNR per Frances
Dispo-SNF. CM aware. difficult situation due to dementia with behavioral disturbances .
Anticipated Discharge: > 48 hours
Subjective/Interval History
-
Date of Service: July 19, 2023
no overnight events
tolerating diet
Objective Data
-
Vital Signs:
Vital Signs
Temp Pulse Resp BP Pulse Ox
98.4 F 53 18 137/58 97
07/19/23 07:30 07/19/23 07:30 07/19/23 07:30 07/19/23 07:37 07/19/23 08:00
I&O
07/18/23 07/19/23 07/20/23
06:59 06:59 06:59
Intake Total 600 / 600
Output Total 1300 / 1300 1750 / 1750
Balance -1300 / -1300 -1150 / -1150
[2023-07-19 11:23] LABS: Glucose - Point of Care 164 mg/dl (70-99)
[2023-07-19] MEDS: STERILE WATER FOR INJECTION IV (12:25)
[2023-07-19] MEDS: NOVOLOG FLEXPEN-LOW RESISTANCE 1 UNITS SC ×2 (13:09→16:49)
[2023-07-19 15:18] LABS: Glucose - Point of Care 152 mg/dl (70-99)
[2023-07-19 15:30] VITALS: BP 141/51
--- NOTE | 2023-07-19 15:41 | CM ---
Patient seen bedside with spouse.
Patient calm and sitting in bed.
Per nursing tolerated lunch, fed himself.
Sarah, liaison from [facility] in to evaluate patient.
Upates via [facility].
Await [facility] determination, will require insurance auth if accepted.
Plan: skilled rehab once bed available.
[2023-07-19] MEDS: LIPITOR 20 MG PO (21:19)
[2023-07-19] MEDS: ARICEPT 10 MG PO (21:19)
[2023-07-19] MEDS: PROTONIX 40 MG PO (21:19)
[2023-07-19] MEDS: ZOLOFT 100 MG PO (21:19)
[2023-07-19] MEDS: ZYPREXA ZYDIS (ORALLY DISINTEGRATING) 2.5 MG PO (21:25)
[2023-07-19 21:39] LABS: Glucose - Point of Care 137 mg/dl (70-99)
[2023-07-19 23:17] VITALS: BP 131/49
[2023-07-20 07:30] VITALS: BP 121/51
[2023-07-20 07:35] LABS: Glucose - Point of Care 122 mg/dl (70-99)
[2023-07-20] MEDS: NOVOLOG FLEXPEN-LOW RESISTANCE SC ×2 (08:17→12:32)
--- NOTE | 2023-07-20 09:08 | CM ---
Patient not accepted for admission at [facility], [facility], [place], [facility], [facility] or [facility].
Updated clinicals sent to [facility] and [facility].
Await Bed availability.
Plan: skilled rehab when bed available and insurance auth received.
[2023-07-20] MEDS: PLAVIX 75 MG PO (10:41)
[2023-07-20] MEDS: LOPRESSOR 12.5 MG PO ×2 (10:41→20:42)
[2023-07-20] MEDS: NORVASC 10 MG PO (10:41)
[2023-07-20] MEDS: VITAMIN B1 100 MG PO (10:41)
[2023-07-20] MEDS: FLOMAX 0.400000000000000022 MG PO (10:41)
[2023-07-20] MEDS: KEPPRA 750 MG PO (10:42)
[2023-07-20] MEDS: HEPARIN 5000 UNITS SC ×2 (10:42→20:37)
--- NOTE | 2023-07-20 11:07 | W.PN.HOSP.TC ---
Today's Communication/Plan
-
ongoing difficult dispo
parameters for bp meds
Assessment / Plan
Assessment / Plan
General: Appears Chronically Ill
HEENT: Normocephalic, Atraumatic and Moist Mucous Membranes
Respiratory: Clear to Auscultation
Cardiac: Regular Rhythm and S1/S2
GI: Nondistended
Genito-urinary: Abbott
Neuro: No focal deficit
Psych: Apparent Dementia
#Acute agitation Hx dementia
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
-progressive worsening over past 2 years per , unable to care for him at home
-appreciate psychiatry consult
-DIAMOND SETTER Zoloft
-Continue donepezil
-Zyprexa PRN - make standing if has persistent agitation
-appreciate ST Eval - diet advanced. off restraints and tele sitter.
Acute Urinary Retention
TITUS 2/2 retention
-US ordered for persistent elevated WBC in setting of UTI with finding significantly distended bladder. With TITUS s/p abbott catheter placement on 07/13
-etiology of retention likely related to UTI, less likely AE zyprexa given very little dose given. may have pre-existing BPH
-renal function improved today
-flomax initiated 07/13 given retention while treating UTI with abx
-consider voiding trial in 1-2 days over weekend if not already transferred to SNF.
-cr stable.
#Seizure disorder status post brain injury 02/24/2011 treated at [place], second brain hemorrhage treated at [place] 2010
-continue DIAMOND SETTER Keppra
Fevers
Sepsis 2/2 UTI
-further work-up neg (CXR, covid, flu, blood cultures)
-continue IV Ceftriaxone for UTI and po abx on dc
-s/p abbott catheter
#Fall with laceration scalp right-sided
-Required didi in ER - s/p stables removal on 4/21
CT cervical spine: No acute abnormalities multilevel cervical DDD
CT head: Encephalomalacia subjacent to 6 cm right temporal parietal craniotomy, moderate diffuse cortical atrophy, small right parietal scalp hematoma
EKG: Sinus bradycardia with PACs 59 bpm, QTc 435 MS
#Dysphagia
-eventual VSE
-cont with current diet.
#TIAs 2012, 2013
-Continue Plavix 75 mg daily, statin, beta-beka
#DM2
Accu-Cheks with SSI. POC 147.
#HTN�benign
-Continue amlodipine 10 mg daily, metoprolol tartrate 12.5 mg twice daily
-hold parameters added
#HLD
Continue statin
# GERD
-Continue Protonix 40 mg at bedtime
#Hearing impaired bilaterally
DVT prophylaxis hep subQ
DNR per Frances
Dispo-SNF. CM aware. difficult situation due to dementia with behavioral disturbances .
Anticipated Discharge: Within 24 hours
Subjective/Interval History
-
Date of Service: July 20, 2023
Had some loose stool overnight and cdfiff was ordered and negative.
tolerating diet
Objective Data
-
Vital Signs:
Vital Signs
Temp Pulse Resp BP Pulse Ox
97.9 F 45 18 121/51 95
07/20/23 07:30 07/20/23 07:30 07/20/23 07:30 07/20/23 07:30 07/20/23 07:30
I&O
07/19/23 07/20/23 07/21/23
06:59 06:59 06:59
Intake Total 600 / 600 1080 / 1080
Output Total 1750 / 1750 2450 / 2450
Balance -1150 / -1150 -1370 / -1370
[2023-07-20 12:20] LABS: Glucose - Point of Care 144 mg/dl (70-99)
[2023-07-20] MEDS: STERILE WATER FOR INJECTION IV (12:33)
[2023-07-20 15:30] VITALS: BP 133/56
--- NOTE | 2023-07-20 16:13 | CM ---
Patient seen bedside.
Calm, not talking.
Spouse upset re disposition.
Son is now involved with helping his mother, Elder Care associate attorney also hired by family.
No accepting facilities at current time.
Additional referrals placed.
Plan: skilled rehab once bed available.
[2023-07-20 16:31] LABS: Glucose - Point of Care 157 mg/dl (70-99)
[2023-07-20] MEDS: NOVOLOG FLEXPEN-LOW RESISTANCE 1 UNITS SC (16:49)
[2023-07-20] MEDS: PROTONIX 40 MG PO (20:40)
[2023-07-20] MEDS: ZOLOFT 100 MG PO (20:41)
[2023-07-20] MEDS: LIPITOR 20 MG PO (20:41)
[2023-07-20] MEDS: ARICEPT 10 MG PO (20:41)
[2023-07-20] MEDS: DESENEX/MITRAZOL/ZEASORB 1 APPLIC TOPICAL (21:37)
[2023-07-20 21:50] LABS: Glucose - Point of Care 133 mg/dl (70-99)
[2023-07-20 22:57] VITALS: BP 131/53
[2023-07-21 07:00] VITALS: BP 159/58
[2023-07-21 08:15] LABS: Glucose - Point of Care 113 mg/dl (70-99)
[2023-07-21] MEDS: FLOMAX 0.400000000000000022 MG PO (08:16)
[2023-07-21] MEDS: HEPARIN 5000 UNITS SC ×2 (08:16→22:02)
[2023-07-21] MEDS: NOVOLOG FLEXPEN-LOW RESISTANCE SC (08:16)
[2023-07-21] MEDS: KEPPRA 750 MG PO (08:16)
[2023-07-21] MEDS: NORVASC 10 MG PO (08:16)
[2023-07-21] MEDS: VITAMIN B1 100 MG PO (08:16)
[2023-07-21] MEDS: LOPRESSOR PO (08:17)
[2023-07-21] MEDS: PLAVIX 75 MG PO (08:17)
[2023-07-21] MEDS: DESENEX/MITRAZOL/ZEASORB 1 APPLIC TOPICAL ×2 (08:18→22:02)
[2023-07-21 11:17] LABS: Glucose - Point of Care 161 mg/dl (70-99)
--- NOTE | 2023-07-21 11:57 | W.PN.HOSP.TC ---
Today's Communication/Plan
-
cont bp meds
await placement -per CM few SNF will re-evaluate sunday
Assessment / Plan
Assessment / Plan
General: Appears Chronically Ill
HEENT: Normocephalic, Atraumatic and Moist Mucous Membranes
Respiratory: Clear to Auscultation
Cardiac: Regular Rhythm and S1/S2
GI: Nondistended
Genito-urinary: Abbott
Neuro: No focal deficit
Psych: Apparent Dementia
#Acute agitation Hx dementia
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
-progressive worsening over past 2 years per , unable to care for him at home
-appreciate psychiatry consult
-CLOTHES MARKER Zoloft
-Continue donepezil
-Zyprexa PRN - make standing if has persistent agitation
-appreciate ST Eval - diet advanced. off restraints and tele sitter.
Acute Urinary Retention
TITUS 2/2 retention
-US ordered for persistent elevated WBC in setting of UTI with finding significantly distended bladder. With TITUS s/p abbott catheter placement on 07/13
-etiology of retention likely related to UTI, less likely AE zyprexa given very little dose given. may have pre-existing BPH
-renal function improved today
-flomax initiated 07/13 given retention while treating UTI with abx
-consider voiding trial in 1-2 days over weekend if not already transferred to SNF.
-cr stable.
#Seizure disorder status post brain injury 02/24/2011 treated at [place], second brain hemorrhage treated at [place] 2010
-continue CLOTHES MARKER Keppra
Fevers
Sepsis 2/2 UTI
-further work-up neg (CXR, covid, flu, blood cultures)
-continue IV Ceftriaxone for UTI and po abx on dc
-s/p abbott catheter
#Fall with laceration scalp right-sided
-Required didi in ER - s/p stables removal on 07/14
CT cervical spine: No acute abnormalities multilevel cervical DDD
CT head: Encephalomalacia subjacent to 6 cm right temporal parietal craniotomy, moderate diffuse cortical atrophy, small right parietal scalp hematoma
EKG: Sinus bradycardia with PACs 59 bpm, QTc 435 MS
#Dysphagia
-cont with current diet.
#TIAs 2012, 2013
-Continue Plavix 75 mg daily, statin, beta-beka
#DM2
Accu-Cheks with SSI. POC 161
#HTN�benign
-Continue amlodipine 10 mg daily, metoprolol tartrate 12.5 mg twice daily
-hold parameters added
#HLD
Continue statin
# GERD
-Continue Protonix 40 mg at bedtime
#Hearing impaired bilaterally
DVT prophylaxis hep subQ
DNR per Frances
Dispo-SNF. CM aware. difficult situation due to dementia with behavioral disturbances .
Anticipated Discharge: 24 - 48 hours
Subjective/Interval History
-
Date of Service: July 21, 2023
No overnight events
Tolerating diet
Objective Data
-
Vital Signs:
Vital Signs
Temp Pulse Resp BP Pulse Ox
97.9 F 44 16 159/58 96
07/21/23 07:00 07/21/23 07:00 07/21/23 07:00 07/21/23 07:00 07/21/23 08:15
I&O
07/20/23 07/21/23 07/22/23
06:59 06:59 06:59
Intake Total 1080 / 1080
Output Total 2450 / 2450 1250 / 1250
Balance -1370 / -1370 -1250 / -1250
--- NOTE | 2023-07-21 12:07 | W.PN.UPDATE ---
Update Note
Progress Note Update
patient seen chart reviewed. this patient is known to me. the patient was sleeping when i saw him. nursing tells me that earlier today he was yelling expletives. it went on for about twenty minutes then abruptly he quieted and went to sleep. from
my read of the chart he has been rejected by several nursing facilities. he has not received a prn for agitation sinnce 07/18. not clear if agitation is the reason he is not being accepted. texted cm to inquire. his prn is currently zyprexa. a
scheduled dose could be considered. did not make that change at this point pending speaking to CM
[2023-07-21] MEDS: STERILE WATER FOR INJECTION IV (12:40)
[2023-07-21] MEDS: NOVOLOG FLEXPEN-LOW RESISTANCE 1 UNITS SC ×2 (12:41→17:43)
--- NOTE | 2023-07-21 13:09 | W.PN.UPDATE ---
Update Note
Progress Note Update
returned to see patient when he was awake. he was eating with some enthusiasm having consumed everything on his tray and was working on the soup having hit the dessert prior to the main course. he does intermittently cough and yell but today has
not been physically aggressive. nursing reports it is hard to discern exactly what he is saying. i did speak to KISHAN who reports it is this which is keeping nursing facilities from accepting him. will order a stew dose of zyprexa 1.25 mg bid and see
if that takes the edge off. continue other meds as they are. i did consider whether zoloft which is used to calm dementia patient at times could somehow be agitating hm but i doubt this is so. will check in with im tomorrow. kishan tells me if he
has a decent weekend nursing facilities will reconsider him.
[2023-07-21 15:35] VITALS: BP 144/62
[2023-07-21 17:03] LABS: Glucose - Point of Care 156 mg/dl (70-99)
[2023-07-21 21:12] LABS: Glucose - Point of Care 165 mg/dl (70-99)
[2023-07-21] MEDS: ZYPREXA 1.25 MG PO (22:03)
[2023-07-21] MEDS: LOPRESSOR 12.5 MG PO (22:03)
[2023-07-21] MEDS: LIPITOR 20 MG PO (22:05)
[2023-07-21] MEDS: ZOLOFT 100 MG PO (22:05)
[2023-07-21] MEDS: PROTONIX 40 MG PO (22:05)
[2023-07-21] MEDS: ARICEPT 10 MG PO (22:05)
[2023-07-21 23:20] VITALS: BP 159/60
[2023-07-22] MEDS: ZYPREXA ZYDIS (ORALLY DISINTEGRATING) 2.5 MG PO (04:31)
[2023-07-22 08:53] LABS: Glucose - Point of Care 129 mg/dl (70-99)
[2023-07-22 08:55] VITALS: BP 153/53
[2023-07-22 09:09] LABS: % Basophils 0.5 % (0-2); % Eosinophils 1.2 % (0-6); % Lymphocytes 20.2 % (20.5-51.1); % Monocytes 6.5 % (1.7-9.3); % Neutrophils 69.6 % (42.2-75.2); Absolute Basophils 0.1 10^3/uL (0-0.2); Absolute Eosinophils 0.2 10^3/uL (0-0.7); Absolute Immature Granulocytes 0.3 10^3/uL (0-0.05); Absolute Lymphocytes 3.2 10^3/uL (1.2-3.4); Absolute Neutrophils 10.9 10^3/uL (1.4-6.5); Hematocrit 38.1 % (39.0-52.0); Hemoglobin 12.5 g/dL (13.0-18.0); Mean Corp Hgb Conc. 32.8 g/dL (33.0-37.0); Mean Corpuscular Hgb 29.6 pg (27.0-31.0); Mean Corpuscular Volume 90.1 fL (80.0-94.0); Mean Platelet Volume 11.1 fL (7.4-10.4); Nucleated Red Blood Cells % 0 % (-); Platelet Count 290 10^3/uL (130-400); Red Blood Cell Count 4.23 10^6/uL (4.70-6.10); Red Cell Dist. Width 12.8 % (11.5-14.5); White Blood Cell Count 15.6 10^3/uL (4.8-10.8)
[2023-07-22] MEDS: KEPPRA 750 MG PO (09:32)
[2023-07-22] MEDS: NORVASC 10 MG PO (09:32)
[2023-07-22 09:33] LABS: Blood Urea Nitrogen 23 mg/dl (9-20); Calcium 9.1 mg/dl (8.4-10.2); Carbon Dioxide 30 mmol/L (22-30); Chloride 103 mmol/L (98-107); Estimated Creatinine Clearance 84 ml/min; Glucose 124 mg/dl (70-99); Potassium 4.9 mmol/L (3.5-5.1); Sodium 136 mmol/L (135-145); eGFR > 60.00
[2023-07-22] MEDS: VITAMIN B1 100 MG PO (09:33)
[2023-07-22] MEDS: LOPRESSOR 12.5 MG PO ×2 (09:33→20:48)
[2023-07-22] MEDS: PLAVIX 75 MG PO (09:33)
[2023-07-22] MEDS: ZYPREXA 1.25 MG PO ×2 (09:34→20:49)
[2023-07-22] MEDS: HEPARIN 5000 UNITS SC ×2 (09:35→20:50)
[2023-07-22] MEDS: FLOMAX 0.400000000000000022 MG PO (09:35)
[2023-07-22] MEDS: NOVOLOG FLEXPEN-LOW RESISTANCE SC (09:36)
[2023-07-22] MEDS: DESENEX/MITRAZOL/ZEASORB 1 APPLIC TOPICAL ×2 (09:37→20:50)
[2023-07-22] MEDS: STERILE WATER FOR INJECTION IV (11:53)
--- NOTE | 2023-07-22 12:32 | W.PN.HOSP.TC ---
Today's Communication/Plan
-
Check CXR
TOV in am
VSE ordered
trend cbc
Assessment / Plan
Assessment / Plan
General: Appears Chronically Ill
HEENT: Normocephalic, Atraumatic and Moist Mucous Membranes
Respiratory: Clear to Auscultation
Cardiac: Regular Rhythm and S1/S2
GI: Nondistended
Genito-urinary: Abbott
Neuro: No focal deficit
Psych: Apparent Dementia
#Acute agitation Hx dementia
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
-progressive worsening over past 2 years per , unable to care for him at home
-appreciate psychiatry consult
-INSIDE WIRER Zoloft
-Continue donepezil
-Zyprexa low dose standing ordered per Psych
-off restraints and tele sitter.
Acute Urinary Retention
TITUS 2/2 retention
-US ordered for persistent elevated WBC in setting of UTI with finding significantly distended bladder. With TITUS s/p abbott catheter placement on 07/13
-etiology of retention likely related to UTI, less likely AE zyprexa given very little dose given. may have pre-existing BPH
-renal function improved
-flomax initiated 07/13 given retention while treating UTI with abx as retained 1.5L
-Voiding trial in am
-cr stable.
#Leukocytosis ?reactive
-VSE in am
-Voiding trial
-remains afebrile
-Check CXR
-Trend cbc
#Seizure disorder status post brain injury 02/24/2011 treated at [place], second brain hemorrhage treated at [place] 2010
-continue INSIDE WIRER Keppra
Fevers
Sepsis 2/2 UTI
-further work-up neg (CXR, covid, flu, blood cultures)
-continue IV Ceftriaxone for UTI and po abx on dc
-s/p abbott catheter
#Fall with laceration scalp right-sided
-Required didi in ER - s/p stables removal on 07/14
CT cervical spine: No acute abnormalities multilevel cervical DDD
CT head: Encephalomalacia subjacent to 6 cm right temporal parietal craniotomy, moderate diffuse cortical atrophy, small right parietal scalp hematoma
EKG: Sinus bradycardia with PACs 59 bpm, QTc 435 MS
#Dysphagia
-cont with current diet.
#TIAs 2012, 2013
-Continue Plavix 75 mg daily, statin, beta-beka
#DM2
Accu-Cheks with SSI. POC 161
#HTN�benign
-Continue amlodipine 10 mg daily, metoprolol tartrate 12.5 mg twice daily
-hold parameters added
#HLD
Continue statin
# GERD
-Continue Protonix 40 mg at bedtime
#Hearing impaired bilaterally
DVT prophylaxis hep subQ
DNR per Frances
Dispo-SNF. CM aware. difficult situation due to dementia with behavioral disturbances .
Anticipated Discharge: > 48 hours
Subjective/Interval History
-
Date of Service: July 22, 2023
No overnight events
started on zyprexa
Objective Data
-
Labs:
Laboratory Results
07/22/23
08:44
WBC 15.6 H
Hgb 12.5 L
Hct 38.1 L
Plt Count 290 D
Sodium 136
Potassium 4.9
Chloride 103
Carbon Dioxide 30
BUN 23 H
Creatinine 0.8
Glucose 124 H
Calcium 9.1
Vital Signs:
Vital Signs
Temp Pulse Resp BP Pulse Ox
97.9 F 59 18 153/53 96
07/22/23 08:55 07/22/23 08:55 07/22/23 08:55 07/22/23 08:55 07/22/23 08:55
I&O
07/21/23 07/22/23 07/23/23
06:59 06:59 06:59
Intake Total 1140 / 1140
Output Total 1250 / 1250 2250 / 2250
Balance -1250 / -1250 -1110 / -1110
Data Reviewed
-
Total Time Spent with Patient (in minutes): 55
[2023-07-22 12:51] LABS: Glucose - Point of Care 171 mg/dl (70-99)
[2023-07-22] MEDS: NOVOLOG FLEXPEN-LOW RESISTANCE 1 UNITS SC ×2 (12:55→16:47)
--- NOTE | 2023-07-22 14:02 | W.PN.UPDATE ---
Update Note
Progress Note Update
patient seen chart reviewed. the patient is much the same. every so often he will sort of roar even without provocation. he went down for a cxr and during the process of getting on the guerney he was upset but quickly calmed by nsg. did not make
any changes in his meds. just started standing dose of zyprexa yesterday he did require a prn in the wee hours of the morning. cm will continue search for a bed tomorrow.
[2023-07-22 16:20] VITALS: BP 153/56
[2023-07-22 16:43] LABS: Glucose - Point of Care 169 mg/dl (70-99)
[2023-07-22] MEDS: LIPITOR 20 MG PO (20:50)
[2023-07-22] MEDS: ARICEPT 10 MG PO (20:50)
[2023-07-22] MEDS: PROTONIX 40 MG PO (20:50)
[2023-07-22] MEDS: ZOLOFT 100 MG PO (20:52)
[2023-07-22 23:20] VITALS: BP 113/41
[2023-07-23 00:15] LABS: Glucose - Point of Care 115 mg/dl (70-99)
[2023-07-23 08:00] VITALS: BP 143/51
[2023-07-23 08:00] LABS: % Basophils 0.7 % (0-2); % Eosinophils 1.9 % (0-6); % Immature Granulocytes 2.9 % (0-0.5); % Lymphocytes 25.9 % (20.5-51.1); % Monocytes 6.6 % (1.7-9.3); Absolute Basophils 0.1 10^3/uL (0-0.2); Absolute Eosinophils 0.2 10^3/uL (0-0.7); Absolute Immature Granulocytes 0.3 10^3/uL (0-0.05); Absolute Lymphocytes 3.1 10^3/uL (1.2-3.4); Absolute Monocytes 0.8 10^3/uL (0.1-0.6); Absolute Neutrophils 7.4 10^3/uL (1.4-6.5); Hematocrit 37.3 % (39.0-52.0); Hemoglobin 12.5 g/dL (13.0-18.0); Mean Corp Hgb Conc. 33.5 g/dL (33.0-37.0); Mean Corpuscular Hgb 29.9 pg (27.0-31.0); Mean Corpuscular Volume 89.2 fL (80.0-94.0); Mean Platelet Volume 11.1 fL (7.4-10.4); Nucleated Red Blood Cells % 0 % (-); Platelet Count 325 10^3/uL (130-400); Red Blood Cell Count 4.18 10^6/uL (4.70-6.10); Red Cell Dist. Width 13.2 % (11.5-14.5); White Blood Cell Count 11.9 10^3/uL (4.8-10.8)
--- NOTE | 2023-07-23 08:45 | PTOTSP ---
Speech Language Pathology
VIDEOFLUOROSCOPIC SWALLOWING EXAMINATINO (VSE) completed. Overall, pt with mild oral and mod-severe pharyngeal dysphagia. Frequent aspiration, majority of which was silent, noted with all liquids and was more likely to occur when premature
spillage of liquids noted in pharynx prior to swallow initiation. He could not follow directions for strategies. Pt has been on a diet since admission with clear CXRs, although WBC has been elevated. Recommend discussion with family re:
continuing diet with known risks vs NPO.
Recommend:
(1) NPO pending GOC discussion. If diet to be chosen, IDDSI Level 4 (Puree) and Thin liquids would be best. Can consider liberalizing solids per family desire
(2) Oral care 4x/day with suctioning as needed
(3) Non-oral meds pending GOC discussion
(4) Allow ice chips per Aspiration Risk Hydration Protocol if NPO chosen
(5) FINISHING MACHINE OPERATOR to continue to follow
[2023-07-23 08:54] LABS: Blood Urea Nitrogen 29 mg/dl (9-20); Calcium 9.1 mg/dl (8.4-10.2); Carbon Dioxide 29 mmol/L (22-30); Chloride 101 mmol/L (98-107); Estimated Creatinine Clearance 74 ml/min; Glucose 122 mg/dl (70-99); Sodium 135 mmol/L (135-145); eGFR > 60.00
[2023-07-23] MEDS: FLOMAX 0.400000000000000022 MG PO (09:05)
[2023-07-23] MEDS: HEPARIN 5000 UNITS SC ×2 (09:06→20:46)
[2023-07-23] MEDS: LOPRESSOR 12.5 MG PO ×2 (09:06→20:49)
[2023-07-23] MEDS: KEPPRA 750 MG PO (09:06)
[2023-07-23] MEDS: NORVASC 10 MG PO (09:07)
[2023-07-23] MEDS: PLAVIX 75 MG PO (09:07)
[2023-07-23] MEDS: ZYPREXA 1.25 MG PO ×2 (09:07→20:45)
[2023-07-23] MEDS: VITAMIN B1 100 MG PO (09:08)
[2023-07-23 09:10] LABS: Glucose - Point of Care 110 mg/dl (70-99)
[2023-07-23] MEDS: DESENEX/MITRAZOL/ZEASORB 1 APPLIC TOPICAL ×2 (09:11→20:45)
[2023-07-23] MEDS: NOVOLOG FLEXPEN-LOW RESISTANCE SC ×2 (09:11→17:25)
--- NOTE | 2023-07-23 11:57 | W.PN.HOSP.TC ---
Addendum entered and electronically signed by Freedom Garcia MD 07/23/23 14:43:
Met with patient's . Reviewed results of VSE. She feels very strongly that she does not want pt to have a feeding tube (PEG). Explained that to allow him to eat by mouth, with very high risk for aspiration, he would have to be on Hospice.
She is agreeable to proceed with Hospice, considering his progressive cognitive decline. Discussion was witnessed by YOUSIF Oneill. told if she changes her mind about the PEG tube, would be agreeable to proceed with placement, she reiterated that
she was not going to change her mind about this, there will be no PEG tube.
Original Note:
Today's Communication/Plan
-
will need to discuss further with pt's , PEG vs Hospice
Assessment / Plan
Assessment / Plan
#Acute agitation Hx dementia
#Hx with history TBI/brain injury brain hemorrhage 02-24-2011 [facility]
-progressive worsening over past 2 years per , unable to care for him at home
-appreciate psychiatry consult
-REAL ESTATE VALUER Zoloft
-Continue donepezil
-Zyprexa low dose standing ordered per Psych
-off restraints and tele sitter.
Acute Urinary Retention
TITUS 2/2 retention
-US ordered for persistent elevated WBC in setting of UTI with finding significantly distended bladder. With TITUS s/p abbott catheter placement on 07/13
-etiology of retention likely related to UTI, less likely Zyprexa given very little dose given. may have pre-existing BPH
-renal function improved
-flomax initiated 07/13 given retention while treating UTI with abx as retained 1.5L, abx since stopped
-Voiding trial 07/22 am, has not yet voided, discussed with RN
-BUN/Creat 71/2.8-->29/0.9
#Leukocytosis ?reactive
-VSE in am
-Voiding trial
-remains afebrile
- CXR: No acute disease of the chest.
-Trend cbc
WBC 11.7-->15.6-->11.9k
#Seizure disorder status post brain injury 02/24/2011 treated at [place], second brain hemorrhage treated at [place] 2010
-continue REAL ESTATE VALUER Keppra
Fevers
Sepsis /2 UTI
-further work-up neg (CXR, covid, flu, blood cultures)
-afebrile since 07/10
-s/p abbott catheter
#Fall with laceration scalp right-sided
-Required didi in ER - s/p stables removal on 07/14
CT cervical spine: No acute abnormalities multilevel cervical DDD
CT head: Encephalomalacia subjacent to 6 cm right temporal parietal craniotomy, moderate diffuse cortical atrophy, small right parietal scalp hematoma
EKG: Sinus bradycardia with PACs 59 bpm, QTc 435 MS
#Dysphagia
-Underwent VSE:mod-severe pharyngeal dysphagia
Pt currently on IDDSI 4, will need to discuss with GOC
Speech therapy rec: (1) NPO pending GOC discussion. If diet to be chosen, IDDSI Level 4 (Puree) and Thin liquids would be best. Can consider liberalizing solids per family desire
(2) Oral care 4x/day with suctioning as needed
(3) Non-oral meds pending GOC discussion
(4) Allow ice chips per Aspiration Risk Hydration Protocol if NPO chosen
(5) BRAND MARKETING SPECIALIST to continue to follow
#TIAs 2012, 2013
-Continue Plavix 75 mg daily, statin, beta-beka
#DM2
Accu-Cheks with SSI. POC 161
#HTN�benign
-Continue amlodipine 10 mg daily, metoprolol tartrate 12.5 mg twice daily
-hold parameters added
#HLD
Continue statin
# GERD
-Continue Protonix 40 mg at bedtime
#Hearing impaired bilaterally
DVT prophylaxis hep subQ
DNR per Frances
Dispo-SNF. CM aware. difficult situation due to dementia with behavioral disturbances .
call placed to to discuss GOC, particularly as to whether she would want a PEG. Call went to , left message. Also notified YOUSIF Oneill, if arrives to page me, need to discuss
multiple issues
Anticipated Discharge: > 48 hours
Subjective/Interval History
-
Date of Service: July 23, 2023
Remains confused, agitated
Objective Data
-
Labs:
Laboratory Results
07/23/23
07:05
WBC 11.9 H
Hgb 12.5 L
Hct 37.3 L
Plt Count 325
Sodium 135
Potassium 5.0
Chloride 101
Carbon Dioxide 29
BUN 29 H
Creatinine 0.9
Glucose 122 H
Calcium 9.1
Vital Signs:
Vital Signs
Temp Pulse Resp BP Pulse Ox
97.7 F 46 20 143/51 95
07/23/23 08:00 07/23/23 08:00 07/23/23 08:00 07/23/23 08:00 07/23/23 09:00
I&O
07/22/23 07/23/23 07/24/23
06:59 06:59 06:59
Intake Total 1140 / 1140 320 / 320
Output Total 2250 / 2250 1375 / 1375 400 / 400
Balance -1110 / -1110 -1055 / -1055 -400 / -400
Review of Systems
-
History Source: Coordinated Provider
Constitutional: Denies Fever
Respiratory: Reports No Symptoms
Physical Exam
-
General: Appears Chronically Ill
HEENT: Normocephalic, Atraumatic and Moist Mucous Membranes
Respiratory: Clear to Auscultation
Cardiac: Regular Rhythm and S1/S2
GI: Nondistended
Genito-urinary: Abbott
Neuro: Awake and Alert; Negative Oriented
Psych: Confused, Agitated and Apparent Dementia
[2023-07-23 12:58] LABS: Glucose - Point of Care 217 mg/dl (70-99)
[2023-07-23] MEDS: STERILE WATER FOR INJECTION IV (13:01)
[2023-07-23] MEDS: NOVOLOG FLEXPEN-LOW RESISTANCE 2 UNITS SC (13:01)
--- NOTE | 2023-07-23 14:58 | PTCARENOTE ---
Hospice verses peg tube was discussed with pt's with Dr. Garcia and this nurse in the room. Pt's agreeable to hospice.
--- NOTE | 2023-07-23 15:50 | CM ---
CM reviewed pt with nursing and noted hospice consult
Meeting with spouse in family room
Hospice discussed along with associated SNF costs
Spouse notes limited finances and concerned about SNF costs
In agreement with SNF referrals
Referral made to Hospice and spouse requesting GIP assessment
Large net of [place] SNF referrals sent via [facility]
Discharge Disposition- SNF with hospice
[2023-07-23 16:00] VITALS: BP 120/44
[2023-07-23 17:15] LABS: Glucose - Point of Care 128 mg/dl (70-99)
[2023-07-23] MEDS: ARICEPT 10 MG PO (20:46)
[2023-07-23] MEDS: LIPITOR 20 MG PO (20:46)
[2023-07-23] MEDS: ZOLOFT 100 MG PO (20:46)
[2023-07-23] MEDS: PROTONIX 40 MG PO (20:46)
[2023-07-23 21:32] LABS: Glucose - Point of Care 94 mg/dl (70-99)
[2023-07-23 22:48] VITALS: BP 136/54
[2023-07-24 08:07] LABS: Glucose - Point of Care 141 mg/dl (70-99)
[2023-07-24 08:38] VITALS: BP 141/57
[2023-07-24] MEDS: NOVOLOG FLEXPEN-LOW RESISTANCE SC ×2 (09:18→16:48)
[2023-07-24] MEDS: HEPARIN 5000 UNITS SC ×2 (09:19→20:07)
[2023-07-24] MEDS: KEPPRA 750 MG PO (09:19)
[2023-07-24] MEDS: FLOMAX 0.400000000000000022 MG PO (09:19)
[2023-07-24] MEDS: LOPRESSOR PO (09:20)
[2023-07-24] MEDS: ZYPREXA 1.25 MG PO ×2 (09:23→20:07)
[2023-07-24] MEDS: VITAMIN B1 100 MG PO (09:23)
[2023-07-24] MEDS: PLAVIX 75 MG PO (09:23)
[2023-07-24] MEDS: NORVASC 10 MG PO (09:23)
[2023-07-24] MEDS: DESENEX/MITRAZOL/ZEASORB 1 APPLIC TOPICAL ×2 (09:30→20:07)
--- NOTE | 2023-07-24 09:49 | CM ---
Addendum entered by Halima Mcdermott 07/24/23 15:03:
Spoke with Liaison for [facility], [facility], [facility], [facility], await decision.
Spoke with [facility], unable to accept.
[facility], initially able to accept, need to review now that [facility] will be MA pending and Hospice.
Spoke with spouse, not interested in [facility].
Additional referrals sent.
Original Note:
Patient seen bedside.
Spoke with nursing, patient still with verbal outbursts (short bursts).
Patient not climbing out of bed, but restless at times.
Patient with Sandoval catheter.
Patient able to feed himself once set up.
Spoke with hospice, family agreeable to hospice. They will continue to follow.
Spoke with Sarah, liaison for skilled rehab and she will see if they are able to accept with a MA application on hospice.
Await TCB
--- NOTE | 2023-07-24 11:35 | W.PN.UPDATE ---
Update Note
Progress Note Update
Patient seen at bedside, discussed with staff, chart reviewed. Mr. Weston status is without much change. He continues to be fairly calm but does have moments of shouting out for no apparent reason. He again, does not engage in any conversation
with me today. Found to be a high risk for aspiration and PEG tube recommenced for feeding, declined and will pursue hospice. Given his progressive cognitive decline, this is appropriate in my opinion.
Impression/Plan - Worsening dementia with agitation - Continue with scheduled doses of Zyprexa at 1.25mg BID. PRN doses remain available if agitated/aggressive. Continue with efforts of redirection and nonpharmacological interventions to ensure
safety.
--- NOTE | 2023-07-24 12:20 | HOSPNOTE ---
Was going to admit patient inpatient hospice, however at this time patient does not meet criteria and will need to seek placement with hospice services. I spoke with case management and will await placement. Attending in agreement with plan.
[2023-07-24 12:45] LABS: Glucose - Point of Care 176 mg/dl (70-99)
[2023-07-24] MEDS: NOVOLOG FLEXPEN-LOW RESISTANCE 1 UNITS SC (12:46)
--- NOTE | 2023-07-24 13:35 | W.PN.HOSP.TC ---
Today's Communication/Plan
-
will allow to eat, but if shows sign of aspiration, consider transition to Hospice
Assessment / Plan
Assessment / Plan
#Acute agitation Hx dementia
#Hx with history TBI/brain injury brain hemorrhage 02-24-2011 [facility]
-progressive worsening over past 2 years per , unable to care for him at home
-appreciate psychiatry consult
-HOSIERY PAIRER Zoloft
-Continue donepezil
-Zyprexa low dose standing ordered per Psych
-off restraints and tele sitter.
Acute Urinary Retention
TITUS 2/2 retention
-US ordered for persistent elevated WBC in setting of UTI with finding significantly distended bladder. With TITUS s/p abbott catheter placement on 07/13
-etiology of retention likely related to UTI, less likely Zyprexa given very little dose given. may have pre-existing BPH
-renal function improved
-flomax initiated 07/13 given retention while treating UTI with abx as retained 1.5L, abx since stopped
-Voiding trial 07/22 am, pt had significant residual and had to be resumed
-BUN/Creat 71/2.8-->29/0.9
#Leukocytosis ?reactive
better
-remains afebrile
- CXR: No acute disease of the chest.
-Trend cbc
WBC 11.7-->15.6-->11.9k
#Seizure disorder status post brain injury 02/24/2011 treated at [place], second brain hemorrhage treated at [facility] 2010
-continue HOSIERY PAIRER Keppra
Fevers
Sepsis 2/2 UTI
-further work-up neg (CXR, covid, flu, blood cultures)
-afebrile since 07/10
-s/p abbott catheter
#Fall with laceration scalp right-sided
-Required didi in ER - s/p stables removal on 07/14
CT cervical spine: No acute abnormalities multilevel cervical DDD
CT head: Encephalomalacia subjacent to 6 cm right temporal parietal craniotomy, moderate diffuse cortical atrophy, small right parietal scalp hematoma
EKG: Sinus bradycardia with PACs 59 bpm, QTc 435 MS
#Dysphagia
-Underwent VSE:mod-severe pharyngeal dysphagia
Pt currently on IDDSI 4, will need to discuss with GOC
Speech therapy rec: (1) NPO pending GOC discussion. If diet to be chosen, IDDSI Level 4 (Puree) and Thin liquids would be best. Can consider liberalizing solids per family desire
(2) Oral care 4x/day with suctioning as needed
(3) Non-oral meds pending [facility] discussion
(4) Allow ice chips per Aspiration Risk Hydration Protocol if NPO chosen
(5) TARIFF EXPERT to continue to follow
#TIAs 2012, 2013
-Continue Plavix 75 mg daily, statin, beta-beka
#DM2
Accu-Cheks with SSI. POC 161
#HTN�benign
-Continue amlodipine 10 mg daily, metoprolol tartrate 12.5 mg twice daily
-hold parameters added
#HLD
Continue statin
# GERD
-Continue Protonix 40 mg at bedtime
#Hearing impaired bilaterally
DVT prophylaxis hep subQ
DNR per Frances
Dispo-SNF. CM aware.
Met with 07/22. She absolutely did not want PEG tube. Pt can only be started on oral diet if accept fact that he is a very high aspiration risk and thus should be on Hospice. is agreeable with Hospice. This was reviewed with Sravani
(Hospice) and Cassie Mcdermott (CM). Will allow diet. Stop Lipitor. Will stop labs and radiologic studies. For now will continue other medications. Consider transition to in hospital vs in SNF Hospice, depending on CM arrangements.
Complex visit
Anticipated Discharge: > 48 hours
Subjective/Interval History
-
Date of Service: July 24, 2023
Remains confused, though appears somewhat more alert today
Objective Data
-
Vital Signs:
Vital Signs
Temp Pulse Resp BP Pulse Ox
97.6 F 51 18 141/57 99
07/24/23 08:38 07/24/23 09:20 07/24/23 08:38 07/24/23 08:38 07/24/23 09:15
I&O
07/23/23 07/24/23 07/25/23
06:59 06:59 06:59
Intake Total 320 / 320 680 / 680
Output Total 1375 / 1375 2650 / 2650
Balance -1055 / -1055 -1969 /
Review of Systems
-
History Source: Coordinated Provider
Constitutional: Denies Fever
Respiratory: Reports No Symptoms
Physical Exam
-
General: Well Developed, No Apparent Distress, Appears Chronically Ill and Other (examined limited due to agitation)
HEENT: Normocephalic, Atraumatic and Moist Mucous Membranes
Respiratory: Clear to Auscultation
Cardiac: Regular Rhythm and S1/S2
GI: Nondistended
Genito-urinary: Abbott
Neuro: Awake and Alert; Negative Oriented
Psych: Confused, Agitated and Apparent Dementia
[2023-07-24 15:25] VITALS: BP 140/55
[2023-07-24 16:47] LABS: Glucose - Point of Care 146 mg/dl (70-99)
[2023-07-24] MEDS: LOPRESSOR 12.5 MG PO (20:08)
[2023-07-24] MEDS: ARICEPT 10 MG PO (21:16)
[2023-07-24] MEDS: PROTONIX 40 MG PO (21:16)
[2023-07-24] MEDS: ZOLOFT 100 MG PO (21:17)
[2023-07-24 22:22] LABS: Glucose - Point of Care 113 mg/dl (70-99)
[2023-07-24 23:55] VITALS: BP 119/48
[2023-07-25 07:30] VITALS: BP 156/66
[2023-07-25 07:51] LABS: Glucose - Point of Care 128 mg/dl (70-99)
[2023-07-25] MEDS: NOVOLOG FLEXPEN-LOW RESISTANCE SC ×2 (08:34→17:36)
[2023-07-25] MEDS: LOPRESSOR 12.5 MG PO ×2 (09:43→20:33)
[2023-07-25] MEDS: NORVASC 10 MG PO (09:43)
[2023-07-25] MEDS: KEPPRA 750 MG PO (09:43)
[2023-07-25] MEDS: ZYPREXA 1.25 MG PO ×2 (09:44→20:34)
[2023-07-25] MEDS: DESENEX/MITRAZOL/ZEASORB 1 APPLIC TOPICAL ×2 (09:44→20:30)
[2023-07-25] MEDS: PLAVIX 75 MG PO (09:44)
[2023-07-25] MEDS: VITAMIN B1 100 MG PO (09:44)
[2023-07-25] MEDS: FLOMAX 0.400000000000000022 MG PO (09:44)
[2023-07-25] MEDS: HEPARIN 5000 UNITS SC ×2 (09:45→20:32)
[2023-07-25 11:34] LABS: Glucose - Point of Care 211 mg/dl (70-99)
--- NOTE | 2023-07-25 12:18 | W.PN.UPDATE ---
Update Note
Progress Note Update
patient seen chart reviewed. spoke with nursing and with cm. patient will likely be made hospice in the near future. not felt appropriate for in patient hospice and alternative being sought. nursing feels at this point he is generally redirectable.
the issue is that periodically he will 'clear his throat' and make a loud very disagreeable nose in the process which can be disturbing to others. he was quiet today when i spoke to him actually one would say nonresponsive. he just stared at me.
did not make any changes in his medication .he has prns of seroquel and hs dose as well
[2023-07-25] MEDS: NOVOLOG FLEXPEN-LOW RESISTANCE 2 UNITS SC (12:40)
--- NOTE | 2023-07-25 14:12 | CM ---
Addendum entered by Halima Mcdermott 07/25/23 15:02:
Updated MD and spouse.
Per spouse, son is agreeable to assist with financial forms.
Original Note:
Spoke with Emily Brown to see if someone would come out an evaluate patient.
Left VM for Liakg pal to see if they would eval and speak with spouse re financials.
Spoke with liaison daxa Singh and they would be interested in evaluating patient, will discuss with spouse.
Plan: LTC/Hospice when bed available.
[2023-07-25 15:00] VITALS: BP 132/57
--- NOTE | 2023-07-25 15:30 | W.PN.HOSP.TC ---
Today's Communication/Plan
-
recheck labs
actually looks a little better, is definitely calmer, consider retry VSE if continues to improve
resume Metformin
Assessment / Plan
Assessment / Plan
#Acute agitation Hx dementia
#Hx with history TBI/brain injury brain hemorrhage 02-24-2011 [facility]
-progressive worsening over past 2 years per , unable to care for him at home
-appreciate psychiatry consult
-ENVIRONMENTAL PROTECTION ECONOMIST Zoloft
-Continue donepezil
-Zyprexa low dose standing ordered per Psych
-off restraints and tele sitter.
Acute Urinary Retention
TITUS 2/2 retention
-US ordered for persistent elevated WBC in setting of UTI with finding significantly distended bladder. With TITUS s/p abbott catheter placement on 07/13
-etiology of retention likely related to UTI, less likely Zyprexa given very little dose given. may have pre-existing BPH
-renal function improved
-flomax initiated 07/13 given retention while treating UTI with abx as retained 1.5L, abx since stopped
-Voiding trial 07/22 am, pt had significant residual and had to be resumed
-BUN/Creat 71/2.8-->29/0.9
#Leukocytosis ?reactive
better
-remains afebrile
- CXR: No acute disease of the chest.
-Trend cbc
WBC 11.7-->15.6-->11.9k
#Seizure disorder status post brain injury 02/24/2011 treated at [place], second brain hemorrhage treated at [place] 2010
-continue ENVIRONMENTAL PROTECTION ECONOMIST Keppra
Fevers
Sepsis 2/2 UTI
-further work-up neg (CXR, covid, flu, blood cultures)
-afebrile since 07/10
-s/p abbott catheter
#Fall with laceration scalp right-sided
-Required didi in ER - s/p stables removal on 07/14
CT cervical spine: No acute abnormalities multilevel cervical DDD
CT head: Encephalomalacia subjacent to 6 cm right temporal parietal craniotomy, moderate diffuse cortical atrophy, small right parietal scalp hematoma
EKG: Sinus bradycardia with PACs 59 bpm, QTc 435 MS
#Dysphagia
-Underwent VSE:mod-severe pharyngeal dysphagia
Pt currently on IDDSI 4, will need to discuss with GOC
Speech therapy rec: (1) NPO pending GOC discussion. If diet to be chosen, IDDSI Level 4 (Puree) and Thin liquids would be best. Can consider liberalizing solids per family desire
(2) Oral care 4x/day with suctioning as needed
(3) Non-oral meds pending [facility] discussion
(4) Allow ice chips per Aspiration Risk Hydration Protocol if NPO chosen
(5) ASSISTANT CENTER DIRECTOR to continue to follow
#TIAs 2012, 2013
-Continue Plavix 75 mg daily, statin, beta-beka
#DM2
Accu-Cheks with SSI. glu 141-211. Will resume Metformin
#HTN�benign
-Continue amlodipine 10 mg daily, metoprolol tartrate 12.5 mg twice daily
-hold parameters added
#HLD
Continue statin
# GERD
-Continue Protonix 40 mg at bedtime
#Hearing impaired bilaterally
DVT prophylaxis hep subQ
DNR per Frances
Dispo-SNF. CM aware.
Met with 07/22. She absolutely did not want PEG tube. Pt can only be started on oral diet if accept fact that he is a very high aspiration risk and thus should be on Hospice. is agreeable with Hospice. This was reviewed with Sravani
(Hospice) and Cassie Mcdermott (CM). Will allow diet. Stop Lipitor. Will stop labs and radiologic studies. For now will continue other medications. Consider transition to in hospital vs in SNF Hospice, depending on CM arrangements.
Complex visit
Anticipated Discharge: > 48 hours
Subjective/Interval History
-
Date of Service: July 25, 2023
Appears comfortable, visiting
Objective Data
-
Vital Signs:
Vital Signs
Temp Pulse Resp BP Pulse Ox
97.8 F 48 18 132/57 97
07/25/23 15:00 07/25/23 15:00 07/25/23 15:00 07/25/23 15:00 07/25/23 15:00
I&O
07/24/23 07/25/23 07/26/23
06:59 06:59 06:59
Intake Total 680 / 680
Output Total 2649 / 2652149
Balance -1969 / -1969 -2149 /
Review of Systems
-
History Source: Family ( in room) and Coordinated Provider
Constitutional: Denies Fever
Respiratory: Reports No Symptoms
Physical Exam
-
General: Well Developed, No Apparent Distress, Appears Chronically Ill and Other (examined limited due to agitation)
HEENT: Normocephalic, Atraumatic and Moist Mucous Membranes
Respiratory: Clear to Auscultation
Cardiac: Regular Rhythm and S1/S2
GI: Nondistended
Genito-urinary: Abbott
Neuro: Awake and Alert; Negative Oriented
Psych: Confused, Agitated and Apparent Dementia
[2023-07-25 17:09] LABS: Glucose - Point of Care 145 mg/dl (70-99)
--- NOTE | 2023-07-25 17:34 | PTCARENOTE ---
Patient calm and cooperative throughout shift.
[2023-07-25] MEDS: GLUCOPHAGE PO ×2 (17:40→17:56)
--- NOTE | 2023-07-25 17:57 | PTCARENOTE ---
Excessive coughing and throat clearing noted with dinner. All aspiration precautions maintained. Dr. Garcia notified.
[2023-07-25 19:35] VITALS: BP 137/51
[2023-07-25] MEDS: ARICEPT 10 MG PO (20:34)
[2023-07-25] MEDS: ZOLOFT 100 MG PO (20:35)
[2023-07-25] MEDS: PROTONIX 40 MG PO (20:35)
[2023-07-25 21:34] LABS: Glucose - Point of Care 122 mg/dl (70-99)
[2023-07-25 23:18] VITALS: BP 138/55
[2023-07-26 07:57] LABS: % Basophils 0.8 % (0-2); % Eosinophils 1.7 % (0-6); % Immature Granulocytes 0.7 % (0-0.5); % Lymphocytes 29.5 % (20.5-51.1); % Monocytes 8.4 % (1.7-9.3); % Neutrophils 58.9 % (42.2-75.2); Absolute Basophils 0.1 10^3/uL (0-0.2); Absolute Eosinophils 0.2 10^3/uL (0-0.7); Absolute Immature Granulocytes 0.1 10^3/uL (0-0.05); Absolute Lymphocytes 2.6 10^3/uL (1.2-3.4); Absolute Monocytes 0.7 10^3/uL (0.1-0.6); Absolute Neutrophils 5.2 10^3/uL (1.4-6.5); Hematocrit 39.5 % (39.0-52.0); Hemoglobin 13.3 g/dL (13.0-18.0); Mean Corp Hgb Conc. 33.7 g/dL (33.0-37.0); Mean Platelet Volume 10.7 fL (7.4-10.4); Nucleated Red Blood Cells % 0 % (-); Platelet Count 318 10^3/uL (130-400); Red Blood Cell Count 4.44 10^6/uL (4.70-6.10); Red Cell Dist. Width 13.2 % (11.5-14.5); White Blood Cell Count 8.9 10^3/uL (4.8-10.8)
[2023-07-26 07:59] VITALS: BP 147/51
[2023-07-26 08:32] LABS: Blood Urea Nitrogen 24 mg/dl (9-20); Calcium 9.5 mg/dl (8.4-10.2); Carbon Dioxide 30 mmol/L (22-30); Chloride 100 mmol/L (98-107); Estimated Creatinine Clearance 74 ml/min; Glucose 130 mg/dl (70-99); Potassium 4.9 mmol/L (3.5-5.1); Sodium 137 mmol/L (135-145); eGFR > 60.00
--- NOTE | 2023-07-26 08:57 | CM ---
Addendum entered by Halima Mcdermott 07/26/23 15:15:
Spouse and Helen from [place] having difficulty connecting.
CM will continue to follow.
Addendum entered by Halima Mcdermott 07/26/23 13:47:
Spouse spoke with her son, he will come Sunday to look over mothers financials.
Spouse and CM left VM for Helen at [facility]. Await TCB.
Per spouse she will be available after 7pm tonight and she could maybe go to the facility tomorrow afternoon if she knows what information is needed.
CM explained patient is medically stable for transfer and were hoping to have financials ironed out joselin.
CM left VM for Stephanie/liaison for [facility].
Spouse teary eyed and frustrated. Emotional support provided.
Addendum entered by Halima Mcdermott 07/26/23 13:25:
Left 2 vm for patients spouse with no return call.
Patients spouse came to hospital and CM explained we did possibly have an accepting facility for patient at [facility] in their dementia unit. They are willing to work with her re payment.
Spouse with concerns re distance and rating.
CM explained facility is 3.5 miles from her home and medicare rating of 3 stars.
Spouse will attempt to contact her son to discuss.
CM explained to patient multiple referrals sent and this is the only facility at this time that is may be willing to accept.
[facility] attempted reaching out to spouse also with no return call.
CM gave spouse Business office contact at [place] to reach out to- Helen.
MD updated.
CM will continue to follow.
Addendum entered by Halima Mcdermott 07/26/23 09:42:
Spoke with MD, would like VSE and void trial.
CM will continue to follow.
Original Note:
TC from Emily Brown for [facility]
They will accept patient pending financial discussion with spouse.
CM left VM for spouse.
Patient would be in the dementia unit.
Hospices at [place] for family to choose from: [facility], [facility], and [facility].
Plan: possible transfer to LTC today.
Await TCB from spouse.
[2023-07-26] MEDS: NOVOLOG FLEXPEN-LOW RESISTANCE SC (09:09)
[2023-07-26] MEDS: KEPPRA 750 MG PO (09:10)
[2023-07-26] MEDS: DESENEX/MITRAZOL/ZEASORB 1 APPLIC TOPICAL ×2 (09:10→20:59)
[2023-07-26] MEDS: LOPRESSOR 12.5 MG PO (09:12)
[2023-07-26] MEDS: VITAMIN B1 100 MG PO (09:12)
[2023-07-26] MEDS: NORVASC 10 MG PO (09:13)
[2023-07-26] MEDS: ZYPREXA 1.25 MG PO ×2 (09:13→21:00)
[2023-07-26] MEDS: PLAVIX 75 MG PO (09:13)
[2023-07-26] MEDS: FLOMAX 0.400000000000000022 MG PO (09:13)
[2023-07-26] MEDS: HEPARIN 5000 UNITS SC ×2 (09:14→20:59)
[2023-07-26] MEDS: GLUCOPHAGE 500 MG PO ×2 (09:14→16:14)
--- NOTE | 2023-07-26 10:30 | PTOTSP ---
Speech Language Pathology
VIDEOFLUOROSCOPIC SWALLOWING EXAMINATION (VSE) completed. Overall, pt continues with significant dysphagia. Inconsistent swallow function noted. On study this date, aspiration noted with honey-thick liquids and regular solids, but likely to
happen with all textures. High risk for airway obstruction.
Recommend:
(1) Continue to recommend NPO
(2) If family decides on P.O. intake, IDDSI Level 4 (Puree) and Thin Liquids would be safest, although still likely to have aspiration
(3) Oral care 4x/day with suctioning as needed
(4) Allow ice chips per Aspiration Risk Hydration Protocol if NPO chosen
(5) CASTING ASSOCIATE to sign off. Please reconsult as indicated.
[2023-07-26 12:05] VITALS: BP 142/56; PULSE 46; O2SAT 98
[2023-07-26 12:22] LABS: Glucose - Point of Care 156 mg/dl (70-99)
[2023-07-26 12:23] LABS: Glucose - Point of Care 142 mg/dl (70-99)
[2023-07-26] MEDS: NOVOLOG FLEXPEN-LOW RESISTANCE 1 UNITS SC ×2 (12:29→16:14)
--- NOTE | 2023-07-26 13:30 | W.PN.HOSP.TC ---
Today's Communication/Plan
-
await further dispo efforts
Assessment / Plan
Assessment / Plan
#Acute agitation Hx dementia
#Hx with history TBI/brain injury brain hemorrhage 02-24-2011 [facility]
-progressive worsening over past 2 years per , unable to care for him at home
-appreciate psychiatry consult
-HOEING ROW BOSS Zoloft
-Continue donepezil
-Zyprexa low dose standing ordered per Psych
-off restraints and tele sitter.
Acute Urinary Retention
TITUS 2/2 retention
-US ordered for persistent elevated WBC in setting of UTI with finding significantly distended bladder. With TITUS s/p abbott catheter placement on 07/13
-etiology of retention likely related to UTI, less likely Zyprexa given very little dose given. may have pre-existing BPH
-renal function improved
-flomax initiated 07/13 given retention while treating UTI with abx as retained 1.5L, abx since stopped
-Voiding trial 07/22 am, pt had significant residual and had to be resumed
-BUN/Creat 71/2.8-->29/0.9-->24/0.9
#Leukocytosis ?reactive
better
-remains afebrile
- CXR: No acute disease of the chest.
-Trend cbc
WBC 11.7-->15.6-->11.9-->8.9k
#Seizure disorder status post brain injury 02/24/2011 treated at [place], second brain hemorrhage treated at [place] 2010
-continue HOEING ROW BOSS Keppra
Fevers
Sepsis 2/2 UTI
-further work-up neg (CXR, covid, flu, blood cultures)
-afebrile since 07/10
-s/p abbott catheter
#Fall with laceration scalp right-sided
-Required didi in ER - s/p stables removal on 07/14
CT cervical spine: No acute abnormalities multilevel cervical DDD
CT head: Encephalomalacia subjacent to 6 cm right temporal parietal craniotomy, moderate diffuse cortical atrophy, small right parietal scalp hematoma
EKG: Sinus bradycardia with PACs 59 bpm, QTc 435 MS
#Dysphagia
-Underwent VSE:mod-severe pharyngeal dysphagia
Pt currently on IDDSI 4, reattempted VSE, unfortunately no improvement
Speech therapy rec: (1) NPO pending [facility] discussion. If diet to be chosen, IDDSI Level 4 (Puree) and Thin liquids would be best. Can consider liberalizing solids per family desire
(2) Oral care 4x/day with suctioning as needed
(3) Non-oral meds pending [facility] discussion
(4) Allow ice chips per Aspiration Risk Hydration Protocol if NPO chosen
(5) FLOUR BLENDER to continue to follow
Spouse continues to decline on PEG tube. Pt at high risk for aspiration. If we are to allow him to eat, he needs to be on Hospice in a facility. Discussed with KISHAN Matthews. She believes we can place patient in a dementia unit, but hesitant on
discharge. Cassie will be meeting with spouse again, but as stands currently, unlikely to be discharged today
#TIAs 2012, 2013
-Continue Plavix 75 mg daily, statin, beta-beka
#DM2
Accu-Cheks with SSI. glu 141-211. Will resume Metformin
#HTN�benign
-Continue amlodipine 10 mg daily, metoprolol tartrate 12.5 mg twice daily
-hold parameters added
#HLD
Continue statin
# GERD
-Continue Protonix 40 mg at bedtime
#Hearing impaired bilaterally
DVT prophylaxis hep subQ
DNR per Frances
Dispo-SNF. CM aware.
Anticipated Discharge: 24 - 48 hours
Subjective/Interval History
-
Date of Service: July 26, 2023
Pt appeared more alert today and as such reattempted VSE
Objective Data
-
Labs:
Laboratory Results
07/26/23
07:03
WBC 8.9
Hgb 13.3
Hct 39.5
Plt Count 318
Sodium 137
Potassium 4.9
Chloride 100
Carbon Dioxide 30
BUN 24 H
Creatinine 0.9
Glucose 130 H
Calcium 9.5
Vital Signs:
Vital Signs
Temp Pulse Resp BP Pulse Ox
98.4 F 47 16 147/51 99
07/26/23 07:59 07/26/23 07:59 07/26/23 07:59 07/26/23 09:13 07/26/23 07:59
I&O
07/25/23 07/26/23 07/27/23
06:59 06:59 06:59
Intake Total 1110 / 1110
Output Total 2150 / 2150 1984
Balance -2150 / -2150 -875 / -875
Review of Systems
-
History Source: Coordinated Provider
Constitutional: Denies Fever
Respiratory: Reports No Symptoms
Physical Exam
-
General: Well Developed, No Apparent Distress, Appears Chronically Ill and Other (examined limited due to agitation)
HEENT: Normocephalic, Atraumatic and Moist Mucous Membranes
Respiratory: Clear to Auscultation
Cardiac: Regular Rhythm and S1/S2
GI: Nondistended
Genito-urinary: Abbott
Neuro: Awake and Alert; Negative Oriented
Psych: Confused, Agitated and Apparent Dementia
--- NOTE | 2023-07-26 13:33 | W.PN.UPDATE ---
Addendum entered and electronically signed by Leonard Beyer MD 07/26/23 13:39:
note patient is also taking sertraline and donepezil. there had been talk of hospice. this might be dc'ed if hospice is being pursued. even if hospice not pursued the benefit of zoloft and aricept may be questionnable at this time.
Original Note:
Update Note
Progress Note Update
mr josé was not seen as he was having speech eval. nursing reports no real change. pt is still on olanzapine bid w prn of same used last on july 21. spoke to case mgt who believe they have found a placement for him. psych will sign off.
[2023-07-26 15:09] VITALS: BP 141/57
[2023-07-26 16:05] LABS: Glucose - Point of Care 157 mg/dl (70-99)
[2023-07-26] MEDS: ZOLOFT 100 MG PO (21:00)
[2023-07-26] MEDS: ARICEPT 10 MG PO (21:00)
[2023-07-26] MEDS: PROTONIX 40 MG PO (21:00)
[2023-07-26] MEDS: LOPRESSOR PO (21:05)
[2023-07-26 21:09] LABS: Glucose - Point of Care 133 mg/dl (70-99)
[2023-07-26 23:00] VITALS: BP 130/50
[2023-07-27 07:12] LABS: Glucose - Point of Care 121 mg/dl (70-99)
[2023-07-27 07:30] VITALS: BP 147/57
[2023-07-27] MEDS: NOVOLOG FLEXPEN-LOW RESISTANCE SC ×3 (09:19→16:38)
[2023-07-27] MEDS: LOPRESSOR PO (09:21)
[2023-07-27] MEDS: GLUCOPHAGE 500 MG PO ×2 (09:22→16:40)
[2023-07-27] MEDS: HEPARIN 5000 UNITS SC ×2 (09:22→21:25)
[2023-07-27] MEDS: PLAVIX 75 MG PO (09:23)
[2023-07-27] MEDS: FLOMAX 0.400000000000000022 MG PO (09:23)
[2023-07-27] MEDS: KEPPRA 750 MG PO (09:23)
[2023-07-27] MEDS: ZYPREXA 1.25 MG PO ×2 (09:24→21:26)
[2023-07-27] MEDS: VITAMIN B1 100 MG PO (09:24)
[2023-07-27] MEDS: NORVASC 10 MG PO (09:24)
[2023-07-27] MEDS: DESENEX/MITRAZOL/ZEASORB 1 APPLIC TOPICAL ×2 (09:40→21:27)
--- NOTE | 2023-07-27 10:25 | CM ---
Addendum entered by Halima Mcdermott 07/27/23 14:59:
Spoke with Stephanie, their business office discussed which financials were needed, and discussed spending down and her financial responsibility.
Patient remains non committal and wishes to speak with son over the weekend.
CM again reinforced with spouses the need for transfer to a group home care facility and discussed hospice services.
Per Stephanie a bed is available at [facility] and Spouse aware d/c will be planned for Sunday.
Addendum entered by Halima Mcdermott 07/27/23 14:43:
Spouse spoke with Bárbara from [facility].
Await call back from Stephanie if patient is accepted to [facility].
Stephanie checking to see if there will be out of pocket expenses.
Discussed with spouse, very indecisive about plan.
Keeps saying her son will be here Sunday, she hasnt seen the facility, she will not be able to afford to live. Just not ready to make a decision.
CM will continue to follow.
Addendum entered by Halima Mcdermott 07/27/23 11:00:
TC from Stephanie/[facility].
Facility has been trying to contact .
They left 4 messages yesterday and left a VM this morning.
CM attempted to contact spouse again this am, and left a VM on cell phone and home phone [phone].
[facility] requesting spouse call them back at the business office [phone].
Plan: LTC/hospice once facility and spouse connect.
Original Note:
[facility] will reach out to spouse again this morning.
Plan: LTC/Hospice once bed available and financials reviewed by facility.
[2023-07-27 11:38] LABS: Glucose - Point of Care 140 mg/dl (70-99)
--- NOTE | 2023-07-27 15:15 | PTCARENOTE ---
Addendum entered by Dayron Rosales RN 07/27/23 15:26:
made aware. Ordered placement of [facility].
Original Note:
At noon today bladder scanned pt. Scan showed 660mls. Straight cathed pt /protocol. 875ml output.
[2023-07-27 15:30] VITALS: BP 145/58
[2023-07-27 16:35] LABS: Glucose - Point of Care 137 mg/dl (70-99)
--- NOTE | 2023-07-27 16:55 | W.PN.HOSP.TC ---
Today's Communication/Plan
-
await dispo
Assessment / Plan
Assessment / Plan
#Acute agitation Hx dementia
#Hx with history TBI/brain injury brain hemorrhage 02-24-2011 [facility]
-progressive worsening over past 2 years per , unable to care for him at home
-appreciate psychiatry consult
-BEAD WRAPPER Zoloft
-Continue donepezil
-Zyprexa low dose standing ordered per Psych
-off restraints and tele sitter.
Acute Urinary Retention
TITSU 2/2 retention
-US ordered for persistent elevated WBC in setting of UTI with finding significantly distended bladder. With TITUS s/p abbott catheter placement on 07/13
-etiology of retention likely related to UTI, less likely Zyprexa given very little dose given. may have pre-existing BPH
-renal function improved
-flomax initiated 07/13 given retention while treating UTI with abx as retained 1.5L, abx since stopped
-Voiding trial 07/22 am, pt had significant residual and had to be resumed
-BUN/Creat 71/2.8-->29/0.9-->24/0.9
#Leukocytosis ?reactive
better
-remains afebrile
- CXR: No acute disease of the chest.
-Trend cbc
WBC 11.7-->15.6-->11.9-->8.9k
#Seizure disorder status post brain injury 02/24/2011 treated at [place], second brain hemorrhage treated at [place] 2010
-continue BEAD WRAPPER Keppra
Fevers
Sepsis 2/2 UTI
-further work-up neg (CXR, covid, flu, blood cultures)
-afebrile since 07/10
-s/p abbott catheter
#Fall with laceration scalp right-sided
-Required didi in ER - s/p stables removal on 07/14
CT cervical spine: No acute abnormalities multilevel cervical DDD
CT head: Encephalomalacia subjacent to 6 cm right temporal parietal craniotomy, moderate diffuse cortical atrophy, small right parietal scalp hematoma
EKG: Sinus bradycardia with PACs 59 bpm, QTc 435 MS
#Dysphagia
-Underwent VSE:mod-severe pharyngeal dysphagia
Pt currently on IDDSI 4, reattempted VSE, unfortunately no improvement
Speech therapy rec: (1) NPO pending [facility] discussion. If diet to be chosen, IDDSI Level 4 (Puree) and Thin liquids would be best. Can consider liberalizing solids per family desire
(2) Oral care 4x/day with suctioning as needed
(3) Non-oral meds pending [facility] discussion
(4) Allow ice chips per Aspiration Risk Hydration Protocol if NPO chosen
(5) LOAD BUILDER to continue to follow
Spouse continues to decline on PEG tube. Pt at high risk for aspiration. If we are to allow him to eat, he needs to be on Hospice in a facility. Discussed with KISHAN Matthews. She believes we can place patient in a dementia unit, but hesitant on
discharge. Cassie again will be meeting with spouse, but as stands currently, unlikely to be discharged today
#TIAs 2012, 2013
-Continue Plavix 75 mg daily, statin, beta-beka
#DM2
Accu-Cheks with SSI. glu 141-211. Will resume Metformin
#HTN�benign
-Continue amlodipine 10 mg daily, metoprolol tartrate 12.5 mg twice daily
-hold parameters added
#HLD
Continue statin
# GERD
-Continue Protonix 40 mg at bedtime
#Hearing impaired bilaterally
DVT prophylaxis hep subQ
DNR per Frances
Dispo-SNF. CM aware.
Anticipated Discharge: 24 - 48 hours
Subjective/Interval History
-
Date of Service: July 27, 2023
Generally calmer today
Objective Data
-
Vital Signs:
Vital Signs
Temp Pulse Resp BP Pulse Ox
98.3 F 65 18 145/58 96
07/27/23 15:30 07/27/23 15:30 07/27/23 15:30 07/27/23 15:30 07/27/23 15:30
I&O
07/26/23 07/27/23 07/28/23
06:59 06:59 06:59
Intake Total 1110 / 1110 720 / 720
Output Total 1984 1450 / 1450 875 / 875
Balance -875 / -875 -730 / -730 -875 / -875
Review of Systems
-
History Source: Coordinated Provider
Constitutional: Denies Fever
Respiratory: Reports No Symptoms
Physical Exam
-
General: Well Developed, No Apparent Distress, Appears Chronically Ill and Other (examined limited due to agitation)
HEENT: Normocephalic, Atraumatic and Moist Mucous Membranes
Respiratory: Clear to Auscultation
Cardiac: Regular Rhythm and S1/S2
GI: Nondistended
Genito-urinary: Abbott
Neuro: Awake and Alert; Negative Oriented
Psych: Confused, Agitated and Apparent Dementia
[2023-07-27 21:25] VITALS: BP 152/60
[2023-07-27 21:25] LABS: Glucose - Point of Care 120 mg/dl (70-99)
[2023-07-27] MEDS: PROTONIX 40 MG PO (21:25)
[2023-07-27] MEDS: ZOLOFT 100 MG PO (21:26)
[2023-07-27] MEDS: ARICEPT 10 MG PO (21:26)
[2023-07-27] MEDS: LOPRESSOR 12.5 MG PO (21:27)
[2023-07-27 23:30] VITALS: BP 134/99
[2023-07-28 08:11] VITALS: BP 134/47
[2023-07-28 08:15] LABS: Glucose - Point of Care 131 mg/dl (70-99)
[2023-07-28] MEDS: GLUCOPHAGE 500 MG PO ×2 (08:32→16:24)
[2023-07-28] MEDS: NOVOLOG FLEXPEN-LOW RESISTANCE SC ×2 (08:32→13:01)
[2023-07-28] MEDS: DESENEX/MITRAZOL/ZEASORB 1 APPLIC TOPICAL ×2 (08:32→21:15)
[2023-07-28] MEDS: VITAMIN B1 100 MG PO (08:34)
[2023-07-28] MEDS: HEPARIN 5000 UNITS SC ×2 (08:34→21:20)
[2023-07-28] MEDS: ZYPREXA 1.25 MG PO ×2 (08:34→21:20)
[2023-07-28] MEDS: KEPPRA 750 MG PO (08:35)
[2023-07-28] MEDS: NORVASC 10 MG PO (08:35)
[2023-07-28] MEDS: PLAVIX 75 MG PO (08:35)
[2023-07-28] MEDS: FLOMAX 0.400000000000000022 MG PO (08:35)
[2023-07-28] MEDS: LOPRESSOR 12.5 MG PO (08:37)
[2023-07-28 12:38] LABS: Glucose - Point of Care 108 mg/dl (70-99)
--- NOTE | 2023-07-28 15:28 | W.PN.HOSP.TC ---
Today's Communication/Plan
-
dc SSI
Assessment / Plan
Assessment / Plan
#Acute agitation Hx dementia
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
-progressive worsening over past 2 years per , unable to care for him at home
-appreciate psychiatry consult
-CNP Zoloft
-Continue donepezil
-Zyprexa low dose standing ordered per Psych
-off restraints and tele sitter.
Acute Urinary Retention
TITUS 2/2 retention
-US ordered for persistent elevated WBC in setting of UTI with finding significantly distended bladder. With TITUS s/p abbott catheter placement on 07/13
-etiology of retention likely related to UTI, less likely Zyprexa given very little dose given. may have pre-existing BPH
-renal function improved
-flomax initiated 07/13 given retention while treating UTI with abx as retained 1.5L, abx since stopped
-Voiding trial 07/22 am, pt had significant residual and had to be resumed
-BUN/Creat 71/2.8-->29/0.9-->24/0.9
#Leukocytosis ?reactive
better
-remains afebrile
- CXR: No acute disease of the chest.
-Trend cbc
WBC 11.7-->15.6-->11.9-->8.9k
#Seizure disorder status post brain injury 02/24/2011 treated at [place], second brain hemorrhage treated at [place] 2010
-continue CNP Keppra
Fevers
Sepsis 2/2 UTI
-further work-up neg (CXR, covid, flu, blood cultures)
-afebrile since 07/10
-s/p abbott catheter
#Fall with laceration scalp right-sided
-Required didi in ER - s/p stables removal on 07/14
CT cervical spine: No acute abnormalities multilevel cervical DDD
CT head: Encephalomalacia subjacent to 6 cm right temporal parietal craniotomy, moderate diffuse cortical atrophy, small right parietal scalp hematoma
EKG: Sinus bradycardia with PACs 59 bpm, QTc 435 MS
#Dysphagia
-Underwent VSE:mod-severe pharyngeal dysphagia
Pt currently on IDDSI 4, reattempted VSE, unfortunately no improvement
Speech therapy rec: (1) NPO pending [facility] discussion. If diet to be chosen, IDDSI Level 4 (Puree) and Thin liquids would be best. Can consider liberalizing solids per family desire
(2) Oral care 4x/day with suctioning as needed
(3) Non-oral meds pending [facility] discussion
(4) Allow ice chips per Aspiration Risk Hydration Protocol if NPO chosen
(5) TRACTOR OPERATOR to continue to follow
Spouse continues to decline on PEG tube. Pt at high risk for aspiration. If we are to allow him to eat, he needs to be on Hospice in a facility. Discussed with KISHAN Matthews. She believes we can place patient in a dementia unit, but hesitant on
discharge. Cassie again will be meeting with spouse, but as stands currently, unlikely to be discharged today
#TIAs 2012, 2013
-Continue Plavix 75 mg daily, statin, beta-beka
#DM2
Will resume Metformin with glu 108-137. Will dc SSI and decrease freq of accuchecks
#HTN�benign
-Continue amlodipine 10 mg daily, metoprolol tartrate 12.5 mg twice daily
-hold parameters added
#HLD
Continue statin
# GERD
-Continue Protonix 40 mg at bedtime
#Hearing impaired bilaterally
DVT prophylaxis hep subQ
DNR per Frances
Dispo-SNF. CM aware.
Anticipated Discharge: 24 - 48 hours
Subjective/Interval History
-
Date of Service: July 28, 2023
Calm at present
Objective Data
-
Vital Signs:
Vital Signs
Temp Pulse Resp BP Pulse Ox
98.2 F 72 18 134/47 97
07/28/23 08:11 07/28/23 08:37 07/28/23 08:11 07/28/23 08:37 07/28/23 08:11
I&O
07/27/23 07/28/23 07/29/23
06:59 06:59 06:59
Intake Total 720 / 720 900 / 900
Output Total 1450 / 1450 2700 / 2700
Balance -730 / -730 -1800 / -1800
Review of Systems
-
History Source: Coordinated Provider
Constitutional: Denies Fever
Respiratory: Reports No Symptoms
Physical Exam
-
General: Well Developed, No Apparent Distress, Appears Chronically Ill and Other (examined limited due to agitation)
HEENT: Normocephalic, Atraumatic and Moist Mucous Membranes
Respiratory: Clear to Auscultation
Cardiac: Regular Rhythm and S1/S2
GI: Nondistended
Genito-urinary: Abbott
Neuro: Awake and Alert; Negative Oriented
Psych: Confused, Agitated and Apparent Dementia
--- NOTE | 2023-07-28 16:57 | W.PN.UPDATE ---
Update Note
Progress Note Update
Pt seen at bedside & chart reviewed. Was resting comfortably and did not disturb as this would not impact his psychiatric care currently - has not been acutely agitated, is confused and with dementia at baseline so would not expect him to be
oriented and would be disturbing him needlessly. Dispo is unclear as there seems to be a hesitancy for tube feeding from pts , however he is aspiration risk and would need hospice care in that case.
Continue medications with no change at this time.
[2023-07-28 17:30] VITALS: BP 158/66
[2023-07-28] MEDS: LOPRESSOR PO (21:19)
[2023-07-28] MEDS: ARICEPT 10 MG PO (21:20)
[2023-07-28] MEDS: ZOLOFT 100 MG PO (21:20)
[2023-07-28] MEDS: PROTONIX 40 MG PO (21:23)
[2023-07-28 23:14] VITALS: BP 127/47
[2023-07-29 07:28] LABS: Glucose - Point of Care 122 mg/dl (70-99)
[2023-07-29 07:49] VITALS: BP 147/48
[2023-07-29] MEDS: PLAVIX 75 MG PO (11:03)
[2023-07-29] MEDS: VITAMIN B1 100 MG PO (11:03)
[2023-07-29] MEDS: NORVASC 10 MG PO (11:04)
[2023-07-29] MEDS: HEPARIN 5000 UNITS SC ×2 (11:05→21:12)
[2023-07-29] MEDS: FLOMAX 0.400000000000000022 MG PO (11:05)
[2023-07-29] MEDS: DESENEX/MITRAZOL/ZEASORB 1 APPLIC TOPICAL ×2 (11:09→21:12)
[2023-07-29] MEDS: LOPRESSOR PO (11:21)
[2023-07-29] MEDS: ZYPREXA 1.25 MG PO ×2 (11:22→21:13)
--- NOTE | 2023-07-29 11:22 | W.PN.HOSP.TC ---
Today's Communication/Plan
-
Await dispo
Assessment / Plan
Assessment / Plan
#Acute agitation Hx dementia
#Hx with history TBI/brain injury brain hemorrhage 02-24-2011 [facility]
-progressive worsening over past 2 years per , unable to care for him at home
-appreciate psychiatry consult
-SYSTEM VALIDATION ENGINEER Zoloft
-Continue donepezil
-Zyprexa low dose standing ordered per Psych
-off restraints and tele sitter.
Acute Urinary Retention
TITUS 2/2 retention
-US ordered for persistent elevated WBC in setting of UTI with finding significantly distended bladder. With TITUS s/p abbott catheter placement on 07/13
-etiology of retention likely related to UTI, less likely Zyprexa given very little dose given. may have pre-existing BPH
-renal function improved
-flomax initiated 07/13 given retention while treating UTI with abx as retained 1.5L, abx since stopped
-Voiding trial 07/22 am, pt had significant residual and had to be resumed
-BUN/Creat 71/2.8-->29/0.9-->24/0.9
#Leukocytosis ?reactive
better
-remains afebrile
- CXR: No acute disease of the chest.
-Trend cbc
WBC 11.7-->15.6-->11.9-->8.9k
#Seizure disorder status post brain injury 02/24/2011 treated at [place], second brain hemorrhage treated at [place] 2010
-continue SYSTEM VALIDATION ENGINEER Keppra
Fevers
Sepsis 2/2 UTI
-further work-up neg (CXR, covid, flu, blood cultures)
-afebrile since 07/10
-s/p abbott catheter
#Fall with laceration scalp right-sided
-Required didi in ER - s/p stables removal on 07/14
CT cervical spine: No acute abnormalities multilevel cervical DDD
CT head: Encephalomalacia subjacent to 6 cm right temporal parietal craniotomy, moderate diffuse cortical atrophy, small right parietal scalp hematoma
EKG: Sinus bradycardia with PACs 59 bpm, QTc 435 MS
#Dysphagia
-Underwent VSE:mod-severe pharyngeal dysphagia
Pt currently on IDDSI 4, reattempted VSE, unfortunately no improvement
Speech therapy rec: (1) NPO pending [facility] discussion. If diet to be chosen, IDDSI Level 4 (Puree) and Thin liquids would be best. Can consider liberalizing solids per family desire
(2) Oral care 4x/day with suctioning as needed
(3) Non-oral meds pending [facility] discussion
(4) Allow ice chips per Aspiration Risk Hydration Protocol if NPO chosen
(5) CONSTRUCTION OPERATIONS MANAGER to continue to follow
Spouse continues to decline on PEG tube. Pt at high risk for aspiration. If we are to allow him to eat, he needs to be on Hospice in a facility. Discussed with KISHAN Matthews. She believes we can place patient in a dementia unit, but hesitant on
discharge. Cassie again will be meeting with spouse, but as stands currently, unlikely to be discharged today
#TIAs 2012, 2013
-Continue Plavix 75 mg daily, statin, beta-beka
#DM2
Will resume Metformin with glu 108-137. Will dc SSI and decrease freq of accuchecks
#HTN�benign
-Continue amlodipine 10 mg daily, metoprolol tartrate 12.5 mg twice daily
-hold parameters added
#HLD
Continue statin
# GERD
-Continue Protonix 40 mg at bedtime
#Hearing impaired bilaterally
DVT prophylaxis hep subQ
DNR per Frances
Dispo-SNF. CM aware.
Anticipated Discharge: 24 - 48 hours
Subjective/Interval History
-
Date of Service: July 29, 2023
Appears comfortable today
Objective Data
-
Vital Signs:
Vital Signs
Temp Pulse Resp BP Pulse Ox
97.9 F 49 14 147/48 95
07/29/23 07:49 07/29/23 07:49 07/29/23 07:49 07/29/23 07:49 07/29/23 07:49
I&O
07/28/23 07/29/23 07/30/23
06:59 06:59 06:59
Intake Total 900 / 900 960 / 960
Output Total 2700 / 2700 1525 / 1525
Balance -1800 / -1800 -565 / -565
Review of Systems
-
History Source: Coordinated Provider
Constitutional: Denies Fever
Respiratory: Reports No Symptoms
Physical Exam
-
General: Well Developed, No Apparent Distress, Appears Chronically Ill and Other (examined limited due to agitation)
HEENT: Normocephalic, Atraumatic and Moist Mucous Membranes
Respiratory: Clear to Auscultation
Cardiac: Regular Rhythm and S1/S2
GI: Nondistended
Genito-urinary: Abbott
Neuro: Awake and Alert; Negative Oriented
Psych: Confused, Agitated and Apparent Dementia
[2023-07-29] MEDS: KEPPRA 750 MG PO (11:23)
[2023-07-29] MEDS: GLUCOPHAGE 500 MG PO ×2 (11:23→19:21)
[2023-07-29 15:47] VITALS: BP 125/49
[2023-07-29] MEDS: PROTONIX 40 MG PO (21:13)
[2023-07-29] MEDS: ARICEPT 10 MG PO (21:13)
[2023-07-29] MEDS: LOPRESSOR 12.5 MG PO (21:17)
[2023-07-29] MEDS: ZOLOFT 100 MG PO (21:17)
[2023-07-30 00:13] VITALS: BP 124/52
[2023-07-30 07:15] VITALS: BP 112/65
[2023-07-30 07:41] LABS: Glucose - Point of Care 118 mg/dl (70-99)
[2023-07-30] MEDS: VITAMIN B1 100 MG PO (10:47)
[2023-07-30] MEDS: ZYPREXA 1.25 MG PO ×2 (10:47→21:28)
[2023-07-30] MEDS: PLAVIX 75 MG PO (10:48)
[2023-07-30] MEDS: NORVASC 10 MG PO (10:49)
[2023-07-30] MEDS: FLOMAX 0.400000000000000022 MG PO (10:50)
[2023-07-30] MEDS: HEPARIN 5000 UNITS SC ×2 (10:51→21:27)
[2023-07-30] MEDS: LOPRESSOR PO (10:58)
[2023-07-30] MEDS: KEPPRA 750 MG PO (11:00)
[2023-07-30] MEDS: GLUCOPHAGE 500 MG PO ×2 (11:00→18:36)
[2023-07-30] MEDS: DESENEX/MITRAZOL/ZEASORB 1 APPLIC TOPICAL ×2 (11:03→21:27)
--- NOTE | 2023-07-30 11:35 | W.PN.HOSP.TC ---
Today's Communication/Plan
-
See note
Assessment / Plan
Assessment / Plan
#Acute agitation Hx dementia
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
-progressive worsening over past 2 years per , unable to care for him at home
-appreciate psychiatry consult
-RADIO REPAIR TEACHER Zoloft
-Continue donepezil
-Zyprexa low dose standing ordered per Psych
-off restraints and tele sitter.
Acute Urinary Retention
TITUS 2/2 retention
-US ordered for persistent elevated WBC in setting of UTI with finding significantly distended bladder. With TITUS s/p abbott catheter placement on 07/13
-etiology of retention likely related to UTI, less likely Zyprexa given very little dose given. may have pre-existing BPH
-renal function improved
-flomax initiated 07/13 given retention while treating UTI with abx as retained 1.5L, abx since stopped
-Voiding trial 07/22 am, pt had significant residual and had to be resumed
-BUN/Creat 71/2.8-->29/0.9-->24/0.9
#Leukocytosis ?reactive
-remains afebrile
-CXR: No acute disease of the chest.
-Trend cbc
-resolved
#Seizure disorder status post brain injury 02/24/2011 treated at [place], second brain hemorrhage treated at [place] 2010
-continue RADIO REPAIR TEACHER Keppra
Fevers
Sepsis 2/2 UTI
-further work-up neg (CXR, covid, flu, blood cultures)
-afebrile since 07/10
-s/p abbott catheter
#Fall with laceration scalp right-sided
-Required didi in ER - s/p stables removal on 07/14
CT cervical spine: No acute abnormalities multilevel cervical DDD
CT head: Encephalomalacia subjacent to 6 cm right temporal parietal craniotomy, moderate diffuse cortical atrophy, small right parietal scalp hematoma
EKG: Sinus bradycardia with PACs 59 bpm, QTc 435 MS
#Dysphagia
-Underwent VSE:mod-severe pharyngeal dysphagia
-Pt currently on IDDSI 4, reattempted VSE, unfortunately no improvement
Speech therapy rec: (1) NPO pending [facility] discussion. If diet to be chosen, IDDSI Level 4 (Puree) and Thin liquids would be best. Can consider liberalizing solids per family desire
(2) Oral care 4x/day with suctioning as needed
(3) Non-oral meds pending [facility] discussion
(4) Allow ice chips per Aspiration Risk Hydration Protocol if NPO chosen
(5) RAILCAR BRAKE OPERATOR to continue to follow
Spouse continues to decline on PEG tube. Pt at high risk for aspiration. If we are to allow him to eat, he needs to be on Hospice in a facility.
#TIAs 2012, 2013
-Continue Plavix 75 mg daily, statin, beta-beka
#DM2
Will resume Metformin with glu 108-137. Will dc SSI and decrease freq of accuchecks
#HTN�benign
-Continue amlodipine 10 mg daily, metoprolol tartrate 12.5 mg twice daily
-hold parameters added
#HLD
Continue statin
# GERD
-Continue Protonix 40 mg at bedtime
#Hearing impaired bilaterally
DVT prophylaxis hep subQ
DNR per Frances
Dispo-SNF. CM aware. Awaiting for family to disclose financial to SNF. Extremely difficult disposition.
Called spouse to update. No response. Left voicemail.
Anticipated Discharge: > 48 hours
Subjective/Interval History
-
Date of Service: July 30, 2023
Watching TV
Calm this morning
Objective Data
-
Vital Signs:
Vital Signs
Temp Pulse Resp BP Pulse Ox
97.7 F 52 17 112/65 96
07/30/23 07:15 07/30/23 10:58 07/30/23 07:15 07/30/23 07:15 07/30/23 07:15
I&O
07/29/23 07/30/23 07/31/23
06:59 06:59 06:59
Intake Total 960 / 960 720 / 720 240 / 240
Output Total 1525 / 1525 1800 / 1800 1000 / 1000
Balance -565 / -565 -1080 / -1080 -760 / -760
Physical Exam
-
General: Well Developed, No Apparent Distress, Appears Chronically Ill and Other (examined limited due to agitation)
HEENT: Normocephalic, Atraumatic and Moist Mucous Membranes
Respiratory: Clear to Auscultation
Cardiac: Regular Rhythm and S1/S2
GI: Nondistended
Genito-urinary: Abbott
Neuro: Awake and Alert; Negative Oriented
Psych: Confused, Agitated and Apparent Dementia
--- NOTE | 2023-07-30 11:46 | CM ---
Spoke with with Frances this am.
She stated she collected some financial information this weekend.
Frances will call Business office at [place].
Spouse will also be in today to see patient.
KISHAN will update Stephanie/liaison for [facility].
Plan: [facility]
[2023-07-30] MEDS: ZYPREXA ZYDIS (ORALLY DISINTEGRATING) 2.5 MG PO (13:47)
[2023-07-30 15:15] VITALS: BP 131/42
[2023-07-30] MEDS: ARICEPT 10 MG PO (21:29)
[2023-07-30] MEDS: PROTONIX 40 MG PO (21:29)
[2023-07-30] MEDS: LOPRESSOR 12.5 MG PO (21:33)
[2023-07-30] MEDS: ZOLOFT 100 MG PO (21:33)
[2023-07-30 23:00] VITALS: BP 121/42
[2023-07-31 07:42] LABS: Glucose - Point of Care 123 mg/dl (70-99)
[2023-07-31 07:47] VITALS: BP 136/55
[2023-07-31] MEDS: DESENEX/MITRAZOL/ZEASORB 1 APPLIC TOPICAL (08:29)
[2023-07-31] MEDS: PLAVIX 75 MG PO (08:30)
[2023-07-31] MEDS: VITAMIN B1 100 MG PO (08:30)
[2023-07-31] MEDS: ZYPREXA 1.25 MG PO (08:30)
[2023-07-31] MEDS: HEPARIN 5000 UNITS SC (08:30)
[2023-07-31] MEDS: FLOMAX 0.400000000000000022 MG PO (08:30)
[2023-07-31] MEDS: NORVASC 10 MG PO (08:30)
[2023-07-31] MEDS: GLUCOPHAGE 500 MG PO (08:31)
[2023-07-31] MEDS: KEPPRA 750 MG PO (08:31)
[2023-07-31] MEDS: LOPRESSOR PO (08:32)
--- NOTE | 2023-07-31 10:03 | CM ---
Addendum entered by Halima Mcdermott 07/31/23 15:05:
Spoke with Cal, unable to see patient until tomorrow. Per Mitali/Cal she left a message with Helen at [facility].
CM spoke with desmond Brown for [facility] and will have Helen call [facility].
TT from Stephanie they can still accept patient.
Spouse bedside and updated, she cannot go to the facility tonight, but will be there around 1:30 pm.
IMM given to spouse.
Addendum entered by Halima Mcdermott 07/31/23 12:17:
CM attempted to contact spouse again this am, and left a VM on cell phone and home phone [phone].
Addendum entered by Halima Mcdermott 07/31/23 10:29:
TC to [facility], spoke with Kanchan. They will review to see if they can accommodate.
Original Note:
Spoke with desmond Brown for [facility], they will accept patient today and make appointment with spouse to come in to the business office to sign forms.
TC to Frances Weston, patients spouse, and she is in agreement.
Frances aware patient will be transferred via ambulance, CM will update her with the time.
IMM reviewed with spouse.
Patient will be going on hospice. Hospices that the facility usually works with reviewed and spouse chose [facility]. [facility]
Outpatient DNR needs to be on chart. TT to MD.
Spouse verbalized nervousness and stated her son is not being much help.
Spouse was in contact with and eldercare forms examiner to assist with planning, however her son wants her to see his forms examiner. Son recently started anew job and has not been available per Frances.
Plan: [facility] via ambulance transport.
[facility]
Report# [phone]
--- NOTE | 2023-07-31 10:55 | W.PN.HOSP.TC ---
Today's Communication/Plan
-
SNF on hospice
Assessment / Plan
Assessment / Plan
#Acute agitation Hx dementia
#Hx with history TBI/brain injury brain hemorrhage 02-24-2011 [facility]
-appreciate psychiatry consult
-GEAR TOOTH GRINDING MACHINE OPERATOR Zoloft
-Continue donepezil
-Zyprexa low dose standing ordered per Psych
-off restraints and tele sitter.
Acute Urinary Retention
TITUS 2/2 retention
-US ordered for persistent elevated WBC in setting of UTI with finding significantly distended bladder. With TITUS s/p abbott catheter placement on 07/13
-etiology of retention likely related to UTI, less likely Zyprexa given very little dose given. may have pre-existing BPH
-renal function improved
-flomax initiated 07/13 given retention while treating UTI with abx as retained 1.5L, abx since stopped
-Voiding trial 07/22 am, pt had significant residual and had to be resumed. Voiding trial as senior care.
-BUN/Creat 71/2.8-->29/0.9-->24/0.9
#Leukocytosis ?reactive
-remains afebrile
-CXR: No acute disease of the chest.
-Trend cbc
-resolved
#Seizure disorder status post brain injury 02/24/2011 treated at [place], second brain hemorrhage treated at [place] 2010
-continue GEAR TOOTH GRINDING MACHINE OPERATOR Keppra
Fevers
Sepsis 2/2 UTI
-further work-up neg (CXR, covid, flu, blood cultures)
-afebrile since 07/10
-s/p abbott catheter
#Fall with laceration scalp right-sided
-Required didi in ER - s/p stables removal on 07/14
CT cervical spine: No acute abnormalities multilevel cervical DDD
CT head: Encephalomalacia subjacent to 6 cm right temporal parietal craniotomy, moderate diffuse cortical atrophy, small right parietal scalp hematoma
#Dysphagia
-Underwent VSE:mod-severe pharyngeal dysphagia
-Pt currently on IDDSI 4, reattempted VSE, unfortunately no improvement
Speech therapy rec: (1) NPO pending [facility] discussion. If diet to be chosen, IDDSI Level 4 (Puree) and Thin liquids would be best. Can consider liberalizing solids per family desire
(2) Oral care 4x/day with suctioning as needed
(3) Non-oral meds pending [facility] discussion
(4) Allow ice chips per Aspiration Risk Hydration Protocol if NPO chosen
(5) CONSULTING MANAGER to continue to follow
Spouse continues to decline on PEG tube. Pt at high risk for aspiration. If we are to allow him to eat, he needs to be on Hospice in a facility. DC to SNF on hospice. agreed DC today
#TIAs 2012, 2013
-Continue Plavix 75 mg daily, statin, beta-beka
#DM2
POC 127. Changed to metformin twice daily
#HTN�benign
-Continue amlodipine 10 mg daily, metoprolol tartrate 12.5 mg twice daily
-hold parameters added
#HLD
Continue statin
# GERD
-Continue Protonix 40 mg at bedtime
#Hearing impaired bilaterally
DVT prophylaxis hep subQ
DNR per Frances
Dispo-SNF. CM aware. DC to SNF on hospice. Further meds adjustment per senior care hospice team
More than 30 minutes spent in discharge including
Final examination of the patient
Summarizing hospital stay
Instructions for continuing care to all relevant caregivers
Preparation of discharge records, prescriptions, and referral forms
Total time spent (in minutes): 55
Anticipated Discharge: Today
Subjective/Interval History
-
Date of Service: July 31, 2023
Resting in bed comfortably
No overnight events
Denies any complaints
Objective Data
-
Vital Signs:
Vital Signs
Temp Pulse Resp BP Pulse Ox
97.8 F 54 17 136/55 98
07/31/23 07:47 07/31/23 08:32 07/31/23 07:47 07/31/23 07:47 07/31/23 07:47
I&O
07/30/23 07/31/23 08/01/23
06:59 06:59 06:59
Intake Total 720 / 720 1080 / 1080
Output Total 1800 / 1800 2650 / 2650
Balance -1080 / -1080 -1570 / -1570
Physical Exam
-
General: Well Developed, No Apparent Distress and Appears Chronically Ill
HEENT: Normocephalic, Atraumatic and Moist Mucous Membranes
Respiratory: Clear to Auscultation
Cardiac: S1/S2
GI: Nondistended
Genito-urinary: Abbott
Neuro: Awake; Negative Oriented
Psych: Confused and Apparent Dementia
--- NOTE | 2023-07-31 11:02 | W.DCSUMMARY ---
Discharge Summary
Discharge Data
Date of Admission: 07/07/23
Date of Discharge: 07/31/23
-
Pending Results: No
Hospital Course
72-year-old male past medical history of dementia, TIA, diabetes mellitus, hypertension, hyperlipidemia, GERD who is presenting from home with severe agitation. Patient spouse was unable to take care of patient at home. Upon admission patient was
also found to have a fall with laceration on scalp with didi in the ER which was removed later on in the hospitalization.CT cervical spine: No acute abnormalities multilevel cervical DDD. CT head: Encephalomalacia subjacent to 6 cm right temporal
parietal craniotomy, moderate diffuse cortical atrophy, small right parietal scalp hematoma. Patient was eval by psychiatry and was started on medication. Patient subsequently spiked fevers. Patient was also found to be acute kidney injury and
acute urinary retention. Sandoval catheter was placed. Patient finished course of antibiotics in the hospital. Creatinine bumped and eventually down trended with Sandoval catheter placement. Infectious workup was done and was found to be negative.
Patient was read by physical and Occupational Therapy. Disposition extremely difficult and prolonged stay due to patient agitation and behavioral problems. Patient was eventually started on Zyprexa standing and as needed. Mentation improved and
was weaned off restraints and TeleSitter. Patient was further also found to have dysphagia and speech recommended complete n.p.o. Diet was resumed with plan for patient to go to shelter facility on hospice. Patient be discharged to SNF on
hospice.
Discharge Plan
-
Patient Disposition: Custodial/SNF
Discharge Diagnosis/Procedures: Acute agitation in the setting of dementia
Acute urinary retention
Acute kidney injury
Leukocytosis
Fevers
Dysphagia
Condition: Fair
Diet: Other diet
Additional Diets: Recommend:
(1) Continue to recommend NPO
(2) If family decides on P.O. intake, IDDSI Level 4 (Puree) and Thin Liquids would be safest, although still likely to have aspiration
(3) Oral care 4x/day with suctioning as needed
(4) Allow ice chips per Aspiration Risk Hydration Protocol if NPO chosen
Activity: With assistance and As tolerated
Driving Restrictions: No driving
Referrals:
Sotero Cartagena MD [Family Provider] - in less than 1 week
Prescriptions:
New
olanzapine 2.5 mg Tablet
1.25 mg PO BID 30 Days Qty: 30 0RF
tamsulosin 0.4 mg Capsule
0.4 mg PO DAILY 30 Days Qty: 30 0RF
olanzapine 5 mg Tablet,Disintegrating
2.5 mg PO Q8HPRN PRN (Reason: agitation) 30 Days Qty: 30 0RF
Continued
amlodipine 10 MG tablet
10 mg PO DAILY
levetiracetam [Keppra] 750 MG tablet
750 mg PO DAILY
metoprolol tartrate 25 MG tablet
12.5 mg PO BID
clopidogrel 75 MG tablet
75 mg PO DAILY
pantoprazole 40 MG tablet,delayed release (DR/EC)
40 mg PO HS
atorvastatin 20 mg Tablet
20 mg PO HS
donepezil 10 mg Tablet
10 mg PO HS
sertraline 100 mg Tablet
100 mg PO HS
thiamine HCl (vitamin B1) 100 mg Tablet
100 mg PO DAILY
mngwybpirfzi-gxbzzvwh-hqmjhb Tablet
1 tab PO DAILY
Changed
metformin 500 MG tablet extended release 24 hr
500 mg PO 0800,1700 Qty: 0 0RF
Discharge Orders:
Discharge Patient (As Directed); Ordered 07/31/23
Ordered By: Jeff Felix
Discharge Date and Time
Print Language: MOHAWK
[2023-07-31 15:23] VITALS: BP 142/57
--- NOTE | 2023-07-31 19:35 | PTCARENOTE ---
Pt DC'd To [facility]. Pt transported by Acute [facility]. Report called to [phone]
== END 2023-07-31 17:21 | DRG 56 ==
LOC: 4 WEST ACU 13:19
PROVIDERS: Clinical Nurse Specialist Family Health; Internal Medicine; Nurse Practitioner; Student in an Organized Health Care Education/Training Program; ADMITTING PHYSICIAN Hospitalist; EMERGENCY PHYSICIAN Emergency Medicine; FAMILY PHYSICIAN Family Medicine; OTHER PHYSICIAN Psychiatry & Neurology Psychiatry
DX: G30.9 Alzheimer's disease, unspecified (principal); A41.9 Sepsis, unspecified organism; S06.5XAA Traumatic subdural hemorrhage with loss of consciousness status unknown, initial encounter; N17.9 Acute kidney failure, unspecified; F02.811 Dementia in other diseases classified elsewhere, unspecified severity, with agitation; N39.0 Urinary tract infection, site not specified; F91.9 Conduct disorder, unspecified; I10 Essential (primary) hypertension; Z66 Do not resuscitate; R33.9 Retention of urine, unspecified; Z78.1 Physical restraint status; G93.89 Other specified disorders of brain; G40.909 Epilepsy, unspecified, not intractable, without status epilepticus; Z11.52 Encounter for screening for COVID-19
CPT/HCPCS: 12002; 51701; 70450; 71045; 71046; 72125; 74230; 76770; 80048; 80053; 80061; 81003; 81015; 82962; 83036; 85025; 87040; 87077; 87086; 87186; 87324; 87449; 87502; 87811; 90471; 90715; 92526; 92610; 92611; 93005; 96360; 96372; 97116; 97163; 97167; 97530; 97535; 99285; J2358